=== PATIENT | male | born 1990 | race Caucasian/White ===

== ENCOUNTER 2020-07-17 16:50 | Inpatient (IN) | payer MEDICAID, OTHER ==
[~2020-07-17] VITALS: Ht 167.6 cm; Wt 75.0 kg
[~2020-07-17 16:50] MED LIST: ARIP1TAB PO; ARIP1TAB10 PO; DIPH25CA32 PO; PALI1TAB2 PO
[2020-07-17 18:33] LABS: HEMATOCRIT 40.8 % (42.0-52.0); HEMOGLOBIN 13.7 g/dl (13.5-17.5); MEAN CORPUSCULAR HEMOGLOBIN 31.5 pg (27.0-33.0); MEAN CORPUSCULAR HGB CONC 33.6 g/dl (32.0-36.5); MEAN CORPUSCULAR VOLUME 93.8 fl (80.0-96.0); PLATELET COUNT, AUTOMATED 246 10^3/uL (150-450); RED BLOOD COUNT 4.35 10^6/uL (4.30-6.10); WHITE BLOOD COUNT 8.2 10^3/uL (4.0-10.0)
[2020-07-17 18:53] LABS: AMPHETAMINES LEVEL URINE NEGATIVE (NEGATIVE); BARBITURATES URINE NEGATIVE (NEGATIVE); BENZODIAZEPINES URINE NEGATIVE (NEGATIVE); CANNABINOIDS URINE NEGATIVE (NEGATIVE); COCAINE METABOLITE URINE NEGATIVE (NEGATIVE); METHADONE URINE NEGATIVE (NEGATIVE); OPIATES URINE NEGATIVE (NEGATIVE); PHENCYCLIDINE URINE NEGATIVE (NEGATIVE)
[2020-07-17 19:28] LABS: ACETAMINOPHEN LEVEL < 2.0 UG/ML (10.0-30.0); ALBUMIN 3.9 GM/DL (3.2-5.2); ALT/SGPT 30 U/L (12-78); BILIRUBIN,DIRECT 0.1 MG/DL (0.0-0.2); BILIRUBIN,TOTAL 0.4 MG/DL (0.2-1.0); BLOOD UREA NITROGEN 18 MG/DL (7-18); CALCIUM LEVEL 9.3 MG/DL (8.5-10.1); CARBON DIOXIDE LEVEL 26 MEQ/L (21-32); CHLORIDE LEVEL 103 MEQ/L (98-107); CREATININE FOR GFR 0.88 MG/DL (0.70-1.30); ETHYL ALCOHOL (ETHANOL) < 0.003 % (0.000-0.010); GLOMERULAR FILTRATION RATE > 60.0 (>60); GLUCOSE, FASTING 94 MG/DL (70-100); POTASSIUM SERUM 4.3 MEQ/L (3.5-5.1); SALICYLATE LEVEL 4.4 MG/DL (5.0-30.0); SODIUM LEVEL 136 MEQ/L (136-145); TOTAL PROTEIN 7.4 GM/DL (6.4-8.2)
[2020-07-18] MEDS ORDERED: METAL LOCK LOOP XX ONE (05:56)
[2020-07-18 14:27] LABS: RSV AMPLIFICATION NEGATIVE (NEGATIVE)
[2020-07-18] MEDS ORDERED: IBUPROFEN 400MG TAB PO PRN (18:25)
[2020-07-18] MEDS ORDERED: OLANZapine ORAL DISINTEGRATING TAB 5MG PO PRN (18:25)
[2020-07-18] MEDS ORDERED: MAALOX 30 ML SUSP *UDC PO PRN (18:25)
[2020-07-18] MEDS ORDERED: MOM 30ML SUSPENSION UDC PO PRN (18:25)
[2020-07-18] MEDS ORDERED: traZODone 50 MG TAB PO PRN (18:25)
[2020-07-19 07:24] VITALS: BP 148/92
[2020-07-19] MEDS: NICOTINE 21MG/24HR 1 EA TRANSDERMAL TD SCH (09:00)
--- NOTE | 2020-07-19 10:20 | MHHPEPDOC ---
General Date Of Admission: Jul 18, 2020 Legal Status: 9.39 Chief Complaint "I was walking on the road in an unorthodox way and the police were called." History of Present Illness HISTORY OF THE PRESENT ILLNESS: Patient is a 30 -year-old Single, Unemployed , male, who was brought by by Police, as he was found walking in the middle of the road, making bizarre statements. On interview, patient is bennett ential and hyperverbal has a long story about his travels on foot and he postulates that a passerby felt that he was walking strangely on the road. Patient is quite manic in his speech with flights of ideas, loose associations and displaying poor insight and judgment. States that he is into natural substances and does not want medications. Patient has had one previous admission to this facility in August 2017 with a diagnosis of Schizoaffective, Bipolar. Patient is unkempt. wearing his hair very long, has fungal on his toenail, states that he was living with a friend for a few days but alludes to being homeless for a few months. PER ED REPORT: Pt was brought to the ED by police on a 9.41 after being found walking in the middle of the road. Pt was making bizarre statements as well. When asked why he was brought to the ED by police, pt stated "There were reports made by people driving by me because of the unorthodox way I was flowing while traveling by foot down the highway." Pt states that these people made false allegations against him, but he admits that he was walking down the middle [place] [address]. Pt states that the police "were corrupting the purity of my moment." He states that he is restoration & "I cannot be corrupted by rules because I am clever, witty, & kind." Pt states that he has walked close to 100 miles over the past few days. Pt is disheveled, unkempt, & malodorous. He states that he has not showered in at least a week. Pt's speech is rambling, rapid, pressured, & mumbled. His TP is disorganized & his concentration is poor. He will often start to answer a question & will then s top & ask what the question was. Pt denies both SI & HI. He denies any hx of suicide attempts or self-harm. Pt denies both AH & VH. He appears internally preoccupied at times, looking at the wall & mumbling. Pt denies both depression & anxiety. He reports "excellent" energy levels. He states that his sleep & appetite are good. When asked if he has a mental health dx he states "there was a false judgment against me a few years ago & they said I was bipolar." Pt has a hx of schizoaffective d/o with one admission to [facility]. He does not currently have OP tx. Pt reports occasional MJ use. He states that he uses alcohol occasionally & then states "less than five times per month." Pt's tox screen was negative. Pt states he has been homeless for four or five months. He states that over the course of that time he has stayed at hotels, the [facility], & with friends. Pt states that sometimes he does not have a place to stay so he just walks. Psychiatric Review of Systems Depression (2 or more weeks): denies Bertha (4 or more days of): grandiosity, still with energy, talkativity, pressured, flight of ideas, distractibility, engages in risky behavior Psychosis: delusions, disorganization, other (patient denies that he has a mental health history, although has been admitted in 2018) PTSD: other (unable to ascertain, patient cannot focus on questions, tangential and circumstantial) Anxiety: other (unable to ascertain, patient cannot focus on questions, tangential and circumstantial) Past Psychiatric History Previous Psychiatric Diagnosis: Schizoaffective, Bipolar Type Previous Psychiatric Admissions: One admissions 08/21/17-09/01/17 Suicide Attempts: Unknown, unable to ascertain, patient cannot focus on questions, tangential and circumstantial Psychiatric Follow-up: Patient has not followed up with any outside provider Psychiatric medications: Last known medications Paliperidone 9 mg, and Abilify 5 mg BID. Past Medical History Medical Problems Right leg fracture with ORIF Right ankle fx with ORIF NKDA Reports no other past medical history Hospitalizations: Yes Surgeries: Yes Family Medical/Psychiatric HX Medical Problems unable to ascertain, patient cannot focus on questions, tangential and circumstantial - states that he has left family history in the past Per his last H + P, he denied any family history of medical, psychiatric or addictions Addiction History nicotine, alcohol, other (cannabis) Social History Childhood: Born in [place], [place] was was raised in [place]. He left school in the 10th grade Abuse/Trauma: "States he is a victim of false accusations",per last H + P no report of Trauma Current Living Situation: Homeless Education: [employer] Employment: None Social Support: None Legal: unable to ascertain, patient cannot focus on questions, tangential and circumstantial Marital: Single Mental Status Examination General Appearance: unkempt, disheveled, appears stated age, hospital scubs/herman thing, healed scars, other (tattoo right forearm, fungal toes, long nails, long hair and mills) Build: thin Demeanor: mistrustful, very figety Eye Contact: average Activity: average Behavior: cooperative, restless Speech: rapid, normal volume Mood: elevated, hypomanic Affect: flat Thought Process: circumstantial, tangential, loose, flight of ideas, racing, derailment Thought Content (Delusions): grandiose, persecutory, bizarre, denies SI, HI, AVH, delusions Thought Content (Other): ideas of reference (restoration references) Thought Content (Aggressive): none reported Perception (Hallucinations): none reported Perception (Other): derealization Cognition (Impairment of): attention/concentration Cognition(Intelligence Est.): average Oriented: Awake, Alert, Oriented times three Insight: poor Judgment: Poor Psychosis: Abstract Thinking Diagnoses Schizoaffective, Bipolar Type Nicotine Use Disorder Alcohol Use Disorder Cannabis Use Disorder A-FIB/CHADSVASC A-FIB History Current/History of A-Fib/PAF?: No Current PO Anticoag Therapy: No Assessment patient is a 30 year old Single, Unemployed, Homeless, Male who was brought in by Police for walking in the roadway and making bizarre statements. Patient presents with racing manic thoughts. States that he has not been taking medications, preferring to be "natural" He has one previous admission to this facility in August 2018 with a diagnosis of Schizoaffective Disorder, Bipolar Type. He has been homeless for quite some time, reports no means of employment, no social supports and is currently admitted to [facility] on a 9.39 legal status. His speech is rapid, tangential, circumstantial with flights of ideas. He displays poor insight and judgment and meets criteria for involuntary admission. We will start patient on an antipsychotic medications and discharge when stable. There is a likelihood that he may be a treatment over objection if he refuses medications. Initial Treatment Plan 1. Patient was admitted on a [9.39] status. 2. Complete history was obtained. 3. With patients permission, family will be contacted and database will be expanded. 4. Patients medication regimen will be reviewed and changed accordingly. 5. Patient will be provided with protected environment. 6. Patient will be treated with individual, group, and milieu therapies. 7. Patient will receive supportive psych-education. 8. Discharge planning will commence immediately. 9. Outpatient follow-up treatment will be strongly recommended. 10. The initial treatment plan will focus initially on: * altered thoughts * compliance to medications ESTIMATED LENGTH OF STAY: 5-7 DAYS. TIME SPENT COUNSELING AND COORDINATING INITIAL CARE: 45 minutes. Tobacco Cessation Screen Tobacco Cessation Tx Ordered?: Yes Ordered/Pending Vital Signs Vital Signs Date Time Temp Pulse Resp B/P (MAP) Pulse Ox O2 Delivery O2 Flow Rate FiO2 07/19/20 07:24 98.3 99 22 148/92 (110) 99 Room Air Laboratory Data 24H Labs Laboratory Tests 2 07/18/20 13:22: Coronavirus (COVID-19)(PCR) NEGATIVE, Influenza Type A (RT-PCR) NEGATIVE, Influenza Type B (RT-PCR) NEGATIVE, Respiratory Syncytial Virus (PCR) NEGATIVE Medications No Active Prescriptions or Reported Meds Allergies Coded Allergies: No Known Allergies (Unverified , 08/21/17) ALEX AGUIRRE NP Jul 19, 2020 09:24
--- NOTE | 2020-07-19 13:12 | HPEPDOC ---
[facility] Medical History & Physical Date of Admission Jul 18, 2020 Date of Service: Jul 19, 2020 History and Physical Chief complaint: Presented to the emergency room with psychosis History of present illness: Patient is a 30-year-old male who presented to the emergency room with reported psychosis. Patient was admitted to the inpatient mental health unit under the care of psychiatry. Hospitalist service was consulted for medical screening evaluation. Currently patient has rapid speech and is speaking tangentially. He denies any headache, nausea, vomiting, chest pain, shortness breath, palpitations, abdominal pain. Patient diarrhea, or urinary discomfort. She denies any recent fevers, chills. Reports that his appetite is fairly normal and has not expressed any changes in his weight. Past Medical History: Patient denies any prior medical history Past Surgical History: Patient denies any prior surgical history Allergies: See below Medications: See below Family History: - No history of malignancies Social History: - Patient reports that he is a smoker. Reports social use of alcohol. 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 Review of Systems: 10 point review of systems complete, all negative otherwise stated in HPI Physical exam: - Vitals: BP [148/92], HR [99], RR [22], Sat [99%RA], Temp [98.3F] - General: Sitting up in bed, pressured speech Speaking in full sentences, AAOx3 - HEENT: NC, AT, PERRLA - CVS: RRR, +S1S2 - Lungs: Fair air entry bilaterally, No appreciable wheezing / rales / rhonchi - Abdomen: Soft, Non-distended, Non-tender - Extremities: No lower extremity edema, No calf tenderness - Neuro: No focal motor or sensory deficit - Skin: Bilateral feet with multiple calluses Labs: See below Imaging: See below EKG: See below Assessment and Plan: Psychosis - Patient has been admitted to the inpatient mental health unit under the care of psychiatry - Currently being managed by psychiatry No significant past medical history DVT prophylaxis - Will c/w early ambulation Female skein yard drier was present for the duration of his history and physical examination Thank you for this consultation; hospitalist service will now sign off, please reconsult as needed Vital Signs Vital Signs Date Time Temp Pulse Resp B/P (MAP) Pulse Ox O2 Delivery O2 Flow Rate FiO2 07/19/20 07:24 98.3 99 22 148/92 (110) 99 Room Air Laboratory Data Labs 24H Laboratory Tests 2 07/18/20 13:22: Coronavirus (COVID-19)(PCR) NEGATIVE, Influenza Type A (RT-PCR) NEGATIVE, Influenza Type B (RT-PCR) NEGATIVE, Respiratory Syncytial Virus (PCR) NEGATIVE Home Medications No Active Prescriptions or Reported Meds Allergies Coded Allergies: No Known Allergies (Unverified , 08/21/17) FLORI BENITES MD Jul 19, 2020 13:12
[2020-07-19] MEDS ORDERED: haloperidoL 5 MG TAB PO PRN (15:30)
[2020-07-19] MEDS ORDERED: BENZTROPINE 1 MG TAB PO PRN (15:30)
[2020-07-19] MEDS: haloperidoL 5 MG TAB PO SCH ×2 (15:51→21:00)
[2020-07-20] MEDS: haloperidoL 5 MG TAB PO SCH ×3 (09:00→20:47)
[2020-07-20] MEDS: NICOTINE 21MG/24HR 1 EA TRANSDERMAL TD SCH (09:00)
--- NOTE | 2020-07-20 13:44 | MHIPNPDOC ---
[facility] Progress Note Progress Note DATE OF SERVICE: 07/20/20 HISTORY: Patient is a 30 -year-old Single, Unemployed , male, who was brought by by Police, as he was found walking in the middle of the road, making bizarre statements. On interview, patient is tangential and hyperverbal has a long story about his travels on foot and he postulates that a passerby felt that he was walking strangely on the road. Patient is quite manic in his speech with flights of ideas, loose associations and displaying poor insight and judgment. States that he is into natural substances and does not want medications. Patient has had one previous admission to this facility in August 2017 with a diagnosis of Schizoaffective, Bipolar. Patient is unkempt. wearing his hair very long, has fungal on his toenail, states that he was living with a friend fo r a few days but alludes to being homeless for a few months. PER ED REPORT: Pt was brought to the ED by police on a 9.41 after being found walking in the middle of the road. Pt was making bizarre statements as well. When asked why he was brought to the ED by police, pt stated "There were reports made by people driving by me because of the unorthodox way I was flowing while t raveling by foot down the highway." Pt states that these people made false allegations against him, but he admits that he was walking down the middle of the road on [address]. Pt states that the police "were corrupting the purity of my moment." He states that he is sabianism & "I cannot be corrupted by rules because I am clever, witty, & kind." Pt states that he has walked close to 100 miles over the past few days. Pt is disheveled, unkempt, & malodorous. He states that he has not showered in at least a week. Pt's speech is rambling, rapid, pressured, & mumbled. His TP is disorganized & his concentration is poor. He will often start to answer a question & will then stop & ask what the question was. Pt denies both SI & HI. He denies any hx of suicide attempts or self-harm. Pt denies both AH & VH. He appears internally preoccupied at times, looking at the wall & mumbling. Pt denies both depression & anxiety. He reports "excellent" energy levels. He states that his sleep & appetite are good. When asked if he has a mental health dx he states "there was a false judgment against me a few years ago & they said I was bipolar." Pt has a hx of schizoaffective d/o with one admission to [facility]. He does not currently have OP tx. Pt reports occasional MJ use. He states that he uses alcohol occasionally & then states "less than five times per month." Pt's tox screen was negative. Pt states he has been homeless for four or five months. He states that over the course of that time he has stayed [facility], & with friends. Pt states that sometimes he does not have a place to stay so he just walks. VITAL SIGNS: See below. CURRENT MEDICATIONS: See below. MENTAL STATUS EXAMINATION: Patient is a 30 -year-old Single, Unemployed , male, who was brought by by Police, as he was found walking in the middle of the road, making bizarre statements. General Appearance: unkempt, disheveled, appears stated age, hospital scubs/clothing, healed scars, other (tattoo right forearm, fungal toes, long nails, long hair and mills) Build: thin Demeanor: mistrustful, very figety Eye Contact: average Activity: average Behavior: cooperative, restless Speech: rapid, normal volume Mood: elevated, hypomanic Affect: flat Thought Process: circumstantial, tangential, loose, flight of ideas, racing, derailment Thought Content (Delusions): grandiose, persecutory, bizarre, denies SI, HI, AVH, delusions Thought Content (Other): ideas of reference (sabianism references) Thought Content (Aggressive): none reported Perception (Hallucinations): none reported Perception (Other): derealization Cognition (Impairment of): attention/concentration Cognition(Intelligence Est.): average Oriented: Awake, Alert, Oriented times three Insight: poor Judgment: Poor Psychosis: Abstract Thinking DIAGNOSES: Schizoaffective, Bipolar Type Nicotine Use Disorder Alcohol Use Disorder Cannabis Use Disorder ASSESSMENT: Patient is quite manic, racing thoughts, hyperverbal, tangential, circumstantial with flight of ideas and loose associations. He denies any depressive symptoms as well as any psychotic symptoms but patient is observed to have poor insight and judgment in his mental illness. He is dismissive when discussing medications stating that he wants "natural medications" Has been heard in his room, yelling loudly. His thought process is very disorganized and scattered. MANAGEMENT PLAN: Continue all medications, encourage patient to accept medic ations. Discharge pending TIME SPENT: 25 minutes. Vital Signs Vital Signs Date Time Temp Pulse Resp B/P (MAP) Pulse Ox O2 Delivery O2 Flow Rate FiO2 07/19/20 07:24 98.3 99 22 148/92 (110) 99 Room Air Current Medications Current Medications Medications (Trade) Dose Ordered Sig/Tong Route PRN Reason Start Time Stop Time Status Last Admin Dose Admin Al Hydrox/Mg Hydrox/Simethicone (Mylanta) 30 ml Q4HP PRN PO HEARTBURN/INDIGESTION 07/18/20 18:25 Benztropine Mesylate (Cogentin) 1 mg BID PRN PO EPS 07/19/20 15:30 Haloperidol (Haldol) 5 mg Q6HP PRN PO AGITATION 07/19/20 15:30 Haloperidol (Haldol) 5 mg TID PO 07/19/20 16:00 Home Med (Med Rec Complete!) ASDIRECTED XX 07/17/20 21:05 07/17/20 21:08 DC Ibuprofen (Advil) 400 mg Q6HP PRN PO PAIN 07/18/20 18:25 Magnesium Hydroxide (Milk Of Magnesia) 30 ml DAILYPRN PRN PO CONSTIPATION 07/18/20 18:25 Nicotine (Nicoderm Cq 21mg) 1 patch DAILY TD 07/19/20 09:00 Olanzapine (ZyPREXA ZYDIS) 5 mg BID PRN PO ANXIETY/AGITATION 07/18/20 18:25 07/19/20 15:32 DC Trazodone HCl (Desyrel) 50 mg QHSP PRN PO INSOMNIA 07/18/20 18:25 Allergies Coded Allergies: No Known Allergies (Unverified , 08/21/17) ALEX AGUIRRE NP Jul 20, 2020 13:44
[2020-07-21] MEDS: NICOTINE 21MG/24HR 1 EA TRANSDERMAL TD SCH (09:00)
[2020-07-21] MEDS: haloperidoL 5 MG TAB PO SCH ×3 (09:00→20:10)
--- NOTE | 2020-07-21 17:14 | MHIPNPDOC ---
[facility] Progress Note Progress Note DATE OF SERVICE: 07/21/20 Patient didn't want to speak with me today. Will re assess tomorrow Vital Signs Vital Signs Date Time Temp Pulse Resp B/P (MAP) Pulse Ox O2 Delivery O2 Flow Rate FiO2 07/19/20 07:24 98.3 99 22 148/92 (110) 99 Room Air Current Medications Current Medications Medications (Trade) Dose Ordered Sig/Tong Route PRN Reason Start Time Stop Time Status Last Admin Dose Admin Al Hydrox/Mg Hydrox/Simethicone (Mylanta) 30 ml Q4HP PRN PO HEARTBURN/INDIGESTION 07/18/20 18:25 Benztropine Mesylate (Cogentin) 1 mg BID PRN PO EPS 07/19/20 15:30 Haloperidol (Haldol) 5 mg Q6HP PRN PO AGITATION 07/19/20 15:30 Haloperidol (Haldol) 5 mg TID PO 07/19/20 16:00 Home Med (Med Rec Complete!) ASDIRECTED XX 07/17/20 21:05 07/17/20 21:08 DC Ibuprofen (Advil) 400 mg Q6HP PRN PO PAIN 07/18/20 18:25 Magnesium Hydroxide (Milk Of Magnesia) 30 ml DAILYPRN PRN PO CONSTIPATION 07/18/20 18:25 Nicotine (Nicoderm Cq 21mg) 1 patch DAILY TD 07/19/20 09:00 Olanzapine (ZyPREXA ZYDIS) 5 mg BID PRN PO ANXIETY/AGITATION 07/18/20 18:25 07/19/20 15:32 DC Trazodone HCl (Desyrel) 50 mg QHSP PRN PO INSOMNIA 07/18/20 18:25 Allergies Coded Allergies: No Known Allergies (Unverified , 08/21/17) SHYAM TODD MD Jul 21, 2020 17:14
[2020-07-22] MEDS: NICOTINE 21MG/24HR 1 EA TRANSDERMAL TD SCH (08:54)
[2020-07-22] MEDS: haloperidoL 5 MG TAB PO SCH ×3 (08:54→21:00)
--- NOTE | 2020-07-22 15:11 | MHIPNPDOC ---
[facility] Progress Note Progress Note DATE OF SERVICE: 07/22/20 The patient refused to speak with me again Vital Signs Vital Signs Date Time Temp Pulse Resp B/P (MAP) Pulse Ox O2 Delivery O2 Flow Rate FiO2 07/22/20 09:30 Room Air 07/19/20 07:24 98.3 99 22 148/92 (110) 99 Current Medications Current Medications Medications (Trade) Dose Ordered Sig/Tong Route PRN Reason Start Time Stop Time Status Last Admin Dose Admin Al Hydrox/Mg Hydrox/Simethicone (Mylanta) 30 ml Q4HP PRN PO HEARTBURN/INDIGESTION 07/18/20 18:25 Benztropine Mesylate (Cogentin) 1 mg BID PRN PO EPS 07/19/20 15:30 Haloperidol (Haldol) 5 mg Q6HP PRN PO AGITATION 07/19/20 15:30 Haloperidol (Haldol) 5 mg TID PO 07/19/20 16:00 Home Med (Med Rec Complete!) ASDIRECTED XX 07/17/20 21:05 07/17/20 21:08 DC Ibuprofen (Advil) 400 mg Q6HP PRN PO PAIN 07/18/20 18:25 Magnesium Hydroxide (Milk Of Magnesia) 30 ml DAILYPRN PRN PO CONSTIPATION 07/18/20 18:25 Nicotine (Nicoderm Cq 21mg) 1 patch DAILY TD 07/19/20 09:00 Olanzapine (ZyPREXA ZYDIS) 5 mg BID PRN PO ANXIETY/AGITATION 07/18/20 18:25 07/19/20 15:32 DC Trazodone HCl (Desyrel) 50 mg QHSP PRN PO INSOMNIA 07/18/20 18:25 Allergies Coded Allergies: No Known Allergies (Unverified , 08/21/17) SHYAM TODD MD Jul 22, 2020 15:11
[2020-07-23] MEDS: haloperidoL 5 MG TAB PO SCH ×3 (08:51→20:35)
[2020-07-23] MEDS: NICOTINE 21MG/24HR 1 EA TRANSDERMAL TD SCH (08:51)
--- NOTE | 2020-07-23 15:07 | MHIPNPDOC ---
[facility] Progress Note Progress Note DATE OF SERVICE: 07/23/20 HISTORY: Patient is a 30 -year-old Single, Unemployed , male, who was brought by by Police, as he was found walking in the middle of the road, making bizarre statements. On interview, patient is tangential and hyperverbal has a long story about his travels on foot and he postulates that a passerby felt that he was walking strangely on the road. Patient is quite manic in his speech with flights of ideas, loose associations and displaying poor insight and judgment. States that he is into natural substances and does not want medications. Patient has had one previous admission to this facility in August 2017 with a diagnosis of Schizoaffective, Bipolar. Patient is unkempt. wearing his hair very long, has fungal on his toenail, states that he was living with a friend fo r a few days but alludes to being homeless for a few months. PER ED REPORT: Pt was brought to the ED by police on a 9.41 after being found walking in the middle of the road. Pt was making bizarre statements as well. When asked why he was brought to the ED by police, pt stated "There were reports made by people driving by me because of the unorthodox way I was flowing while t raveling by foot down the highway." Pt states that these people made false allegations against him, but he admits that he was walking down the middle [place] [address]. Pt states that the police "were corrupting the purity of my moment." He states that he is anglican & "I cannot be corrupted by rules because I am clever, witty, & kind." Pt states that he has walked close to 100 miles over the past few days. Pt is disheveled, unkempt, & malodorous. He states that he has not showered in at least a week. Pt's speech is rambling, rapid, pressured, & mumbled. His TP is disorganized & his concentration is poor. He will often start to answer a question & will then stop & ask what the question was. Pt denies both SI & HI. He denies any hx of suicide attempts or self-harm. Pt denies both AH & VH. He appears internally preoccupied at times, looking at the wall & mumbling. Pt denies both depression & anxiety. He reports "excellent" energy levels. He states that his sleep & appetite are good. When asked if he has a mental health dx he states "there was a false judgment against me a few years ago & they said I was bipolar." Pt has a hx of schizoaffective d/o with one admission to [facility]. He does not currently have OP tx. Pt reports occasional MJ use. He states that he uses alcohol occasionally & then states "less than five times per month." Pt's tox screen was negative. Pt states he has been homeless for four or five months. He states that over the course of that time he has stayed at hotels, [place], & with friends. Pt states that sometimes he does not have a place to stay so he just walks. VITAL SIGNS: See below. CURRENT MEDICATIONS: See below. MENTAL STATUS EXAMINATION: Patient is a 30 -year-old Single, Unemployed , male, who was brought by by Police, as he was found walking in the middle of the road, making bizarre statements. General Appearance: unkempt, disheveled, appears stated age, hospital scrubs/clothing, healed scars, other (tattoo right forearm, fungal toes, long nails, long hair and mills) Build: thin Demeanor: mistrustful, very fidgety Eye Contact: average Activity: average Behavior: restless Speech: rapid, normal volume Mood: elevated, hypomanic Affect: flat Thought Process: circumstantial, tangential, loose, flight of ideas, racing, derailment Thought Content (Delusions): grandiose, persecutory, bizarre, denies SI, HI, AVH, delusions Thought Content (Other): ideas of reference (anglican references) Thought Content (Aggressive): none reported Perception (Hallucinations): none reported Perception (Other): derealization Cognition (Impairment of): attention/concentration Cognition(Intelligence Est.): average Oriented: Awake, Alert, Oriented times three Insight: poor Judgment: Poor Psychosis: Abstract Thinking DIAGNOSES: Schizoaffective, Bipolar Type Nicotine Use Disorder Alcohol Use Disorder Cannabis Use Disorder ASSESSMENT: Patient is hypomanic with racing thoughts, hyperverbal, tangential, circumstantial with flight of ideas and loose associations. He is dismissive with regards to medications and leaves the room many times to go off to his room. He denies depressive symptoms and psychotic or manic symptoms but patie nt is observed to have poor insight and judgment into his mental illness. He continues to be be disorganized and scattered and hypomanic. When I discussed with him the need for medications, patient became very irritable and hostile and refused to discuss medications. MANAGEMENT PLAN: Continue all medications, encourage patient to accept medications. Order to 2 PC, Transfer to [facility] as patient will not take medications that will stabilize him. May have to consider treatment over objection if he continues to refuse medications. TIME SPENT: 25 minutes. Vital Signs Vital Signs Date Time Temp Pulse Resp B/P (MAP) Pulse Ox O2 Delivery O2 Flow Rate FiO2 07/22/20 09:30 Room Air 07/19/20 07:24 98.3 99 22 148/92 (110) 99 Current Medications Current Medications Medications (Trade) Dose Ordered Sig/Tong Route PRN Reason Start Time Stop Time Status Last Admin Dose Admin Al Hydrox/Mg Hydrox/Simethicone (Mylanta) 30 ml Q4HP PRN PO HEARTBURN/INDIGESTION 07/18/20 18:25 Benztropine Mesylate (Cogentin) 1 mg BID PRN PO EPS 07/19/20 15:30 Haloperidol (Haldol) 5 mg Q6HP PRN PO AGITATION 07/19/20 15:30 Haloperidol (Haldol) 5 mg TID PO 07/19/20 16:00 Home Med (Med Rec Complete!) ASDIRECTED XX 07/17/20 21:05 07/17/20 21:08 DC Ibuprofen (Advil) 400 mg Q6HP PRN PO PAIN 07/18/20 18:25 Magnesium Hydroxide (Milk Of Magnesia) 30 ml DAILYPRN PRN PO CONSTIPATION 07/18/20 18:25 Nicotine (Nicoderm Cq 21mg) 1 patch DAILY TD 07/19/20 09:00 Olanzapine (ZyPREXA ZYDIS) 5 mg BID PRN PO ANXIETY/AGITATION 07/18/20 18:25 07/19/20 15:32 DC Trazodone HCl (Desyrel) 50 mg QHSP PRN PO INSOMNIA 07/18/20 18:25 Allergies Coded Allergies: No Known Allergies (Unverified , 08/21/17) ALEX AGUIRRE NP Jul 23, 2020 15:07
[2020-07-24] MEDS: haloperidoL 5 MG TAB PO SCH ×3 (08:22→21:00)
[2020-07-24] MEDS: NICOTINE 21MG/24HR 1 EA TRANSDERMAL TD SCH (08:22)
--- NOTE | 2020-07-24 16:26 | MHIPNPDOC ---
[facility] Progress Note Progress Note DATE OF SERVICE: 07/24/20 HISTORY: Patient is a 30 -year-old Single, Unemployed , male, who was brought by by Police, as he was found walking in the middle of the road, making bizarre statements. On interview, patient is tangential and hyperverbal has a long story about his travels on foot and he postulates that a passerby felt that he was walking strangely on the road. Patient is quite manic in his speech with flights of ideas, loose associations and displaying poor insight and judgment. States that he is into natural substances and does not want medications. Patient has had one previous admission to this facility in August 2017 with a diagnosis of Schizoaffective, Bipolar. Patient is unkempt. wearing his hair very long, has fungal on his toenail, states that he was living with a friend fo r a few days but alludes to being homeless for a few months. PER ED REPORT: Pt was brought to the ED by police on a 9.41 after being found walking in the middle of the road. Pt was making bizarre statements as well. When asked why he was brought to the ED by police, pt stated "There were reports made by people driving by me because of the unorthodox way I was flowing while t raveling by foot down the highway." Pt states that these people made false allegations against him, but he admits that he was walking down the middle of the road on [address]. Pt states that the police "were corrupting the purity of my moment." He states that he is cheondoism & "I cannot be corrupted by rules because I am clever, witty, & kind." Pt states that he has walked close to 100 miles over the past few days. Pt is disheveled, unkempt, & malodorous. He states that he has not showered in at least a week. Pt's speech is rambling, rapid, pressured, & mumbled. His TP is disorganized & his concentration is poor. He will often start to answer a question & will then stop & ask what the question was. Pt denies both SI & HI. He denies any hx of suicide attempts or self-harm. Pt denies both AH & VH. He appears internally preoccupied at times, looking at the wall & mumbling. Pt denies both depression & anxiety. He reports "excellent" energy levels. He states that his sleep & appetite are good. When asked if he has a mental health dx he states "there was a false judgment against me a few years ago & they said I was bipolar." Pt has a hx of schizoaffective d/o with one admission to [facility]. He does not currently have OP tx. Pt reports occasional MJ use. He states that he uses alcohol occasionally & then states "less than five times per month." Pt's tox screen was negative. Pt states he has been homeless for four or five months. He states that over the course of that time he has stayed at hotels, [place], & with friends. Pt states that sometimes he does not have a place to stay so he just walks. VITAL SIGNS: See below. CURRENT MEDICATIONS: See below. MENTAL STATUS EXAMINATION: Patient is a 30 -year-old Single, Unemployed , male, who was brought by by Police, as he was found walking in the middle of the road, making bizarre statements. General Appearance: unkempt, disheveled, appears stated age, hospital scrubs/clothing, healed scars, other (tattoo right forearm, fungal toes, long nails, long hair and mills) Build: thin Demeanor: mistrustful, very fidgety Eye Contact: average Activity: average Behavior: restless Speech: rapid, normal volume Mood: hypomanic Affect: flat Thought Process: circumstantial, tangential, loose, flight of ideas, racing, derailment Thought Content (Delusions): grandiose, persecutory, bizarre, denies SI, HI, AVH, delusions Thought Content (Other): ideas of reference (cheondoism references) Thought Content (Aggressive): none reported Perception (Hallucinations): none reported Perception (Other): derealization Cognition (Impairment of): attention/concentration Cognition(Intelligence Est.): average Oriented: Awake, Alert, Oriented times three Insight: poor Judgment: Poor Psychosis: Abstract Thinking DIAGNOSES: Schizoaffective, Bipolar Type Nicotine Use Disorder Alcohol Use Disorder Cannabis Use Disorder ASSESSMENT: Patient is hypomanic, during the interview, he left the room numerous times. He had intense cheondoism ideations, asking "Are you spiritual? Do you have cheondoism beliefs? Do you have Integrity?" Patient has tangential, circumstantial thought processes, speech is fast and tangential. He is disorganized with flight of ideas. Attempted to have face to face conversation about treatment plan moving forward, patient left the room numerous times although I believe that he heard me say that the plan is a transfer to [facility]. Patient has a long history of poor adherence to treatment from not taking medications to having no ability to access housing by [facility]. A discharge for someone who is acutely delusional and psychotic would be poor treatment and an unsafe discharge plan as he is showing no improvement without medications. MANAGEMENT PLAN: Continue all medications, encourage patient to accept medications. Order to 2 PC, Transfer to [facility] as patient will not take medications that will stabilize him. May have to consider treatment over obj ection if he continues to refuse medications. TIME SPENT: 25 minutes. Vital Signs Vital Signs Date Time Temp Pulse Resp B/P (MAP) Pulse Ox O2 Delivery O2 Flow Rate FiO2 07/22/20 09:30 Room Air 07/19/20 07:24 98.3 99 22 148/92 (110) 99 Current Medications Current Medications Medications (Trade) Dose Ordered Sig/Tong Route PRN Reason Start Time Stop Time Status Last Admin Dose Admin Al Hydrox/Mg Hydrox/Simethicone (Mylanta) 30 ml Q4HP PRN PO HEARTBURN/INDIGESTION 07/18/20 18:25 Benztropine Mesylate (Cogentin) 1 mg BID PRN PO EPS 07/19/20 15:30 Haloperidol (Haldol) 5 mg Q6HP PRN PO AGITATION 07/19/20 15:30 Haloperidol (Haldol) 5 mg TID PO 07/19/20 16:00 Home Med (Med Rec Complete!) ASDIRECTED XX 07/17/20 21:05 07/17/20 21:08 DC Ibuprofen (Advil) 400 mg Q6HP PRN PO PAIN 07/18/20 18:25 Magnesium Hydroxide (Milk Of Magnesia) 30 ml DAILYPRN PRN PO CONSTIPATION 07/18/20 18:25 Nicotine (Nicoderm Cq 21mg) 1 patch DAILY TD 07/19/20 09:00 Olanzapine (ZyPREXA ZYDIS) 5 mg BID PRN PO ANXIETY/AGITATION 07/18/20 18:25 6/3/21 15:32 DC Trazodone HCl (Desyrel) 50 mg QHSP PRN PO INSOMNIA 07/18/20 18:25 Allergies Coded Allergies: No Known Allergies (Unverified , 08/21/17) ALEX AGUIRRE NP Jul 24, 2020 16:26
[2020-07-25] MEDS: haloperidoL 5 MG TAB PO SCH ×3 (08:16→21:00)
[2020-07-25] MEDS: NICOTINE 21MG/24HR 1 EA TRANSDERMAL TD SCH (08:16)
--- NOTE | 2020-07-25 13:11 | MHIPNPDOC ---
[facility] Progress Note Progress Note DATE OF SERVICE: 07/25/20 HISTORY: Patient is a 30 -year-old Single, Unemployed , male, who was brought by by Police, as he was found walking in the middle of the road, making bizarre statements. On interview, patient is tangential and hyperverbal has a long story about his travels on foot and he postulates that a passerby felt that he was walking strangely on the road. Patient is quite manic in his speech with flights of ideas, loose associations and displaying poor insight and judgment. States that he is into natural substances and does not want medications. Patient has had one previous admission to this facility in August 2017 with a diagnosis of Schizoaffective, Bipolar. Patient is unkempt. wearing his hair very long, has fungal on his toenail, states that he was living with a friend for a few days but alludes to being homeless for a few months. PER ED REPORT: Pt was brought to the ED by police on a 9.41 after being found walking in the middle of the road. Pt was making bizarre statements as well. When asked why he was brought to the ED by police, pt stated "There were reports made by people driving by me because of the unorthodox way I was flowing while traveling by foot down the highway." Pt states that these people made false allegations against him, but he admits that he was walking down the middle of the road on [address]. Pt states that the police "were corrupting the purity of my moment." He states that he is alevism & "I cannot be corrupted by rules because I am clever, witty, & kind." Pt states that he has walked close to 100 miles over the past few days. Pt is disheveled, unkempt, & malodorous. He states that he has not showered in at least a week. Pt's speech is rambling, rapid, pressured, & mumbled. His TP is disorganized & his concentration is poor. He will often start to answer a question & will then stop & ask what the question was. Pt denies both SI & HI. He denies any hx of suicide attempts or self-harm. Pt denies both AH & VH. He appears internally preoccupied at times, looking at the wall & mumbling. Pt denies both depression & anxiety. He reports "excellent" energy levels. He states that his sleep & appetite are good. When asked if he has a mental health dx he states "there was a false judgment against me a few years ago & they said I was bipolar." Pt has a hx of schizoaffective d/o with one admission to [facility]. He does not currently have OP tx. Pt reports occasional MJ use. He states that he uses alcohol occasionally & then states "less than five times per month." Pt's tox screen was negative. Pt states he has been homeless for four or five months. He states that over the course of that time he has stayed at hotels, [place], & with friends. Pt states that sometimes he does not have a place to stay so he just walks. VITAL SIGNS: See below. CURRENT MEDICATIONS: See below. MENTAL STATUS EXAMINATION: Patient is a 30 -year-old Single, Unemployed , male, who was brought by by Police, as he was found walking in the middle of the road, making bizarre statements. General Appearance: unkempt, disheveled, appears stated age, hospital scrubs/clothing, healed scars, other (tattoo right forearm, fungal toes, long nails, long hair and mills) Build: thin Demeanor: mistrustful, very fidgety Eye Contact: average Activity: average Behavior: cooperative Speech: rapid, normal volume Mood: hypomanic Affect: flat Thought Process: circumstantial, tangential, loose, flight of ideas, racing, derailment Thought Content (Delusions): grandiose, persecutory, bizarre, denies SI, HI, AVH, delusions Thought Content (Other): ideas of reference (alevism references) Thought Content (Aggressive): none reported Perception (Hallucinations): none reported Perception (Other): derealization Cognition (Impairment of): attention/concentration Cognition(Intelligence Est.): average Oriented: Awake, Alert, Oriented times three Insight: poor Judgment: Poor Psychosis: Abstract Thinking DIAGNOSES: Schizoaffective, Bipolar Type Nicotine Use Disorder Alcohol Use Disorder Cannabis Use Disorder ASSESSMENT:Patient refused to meet with provider, stated that he was walking and exercising and wanted to meet much later. Encouraged patient to be seen as he was the last patient that this provider had to see and he stated he could not speak until after his walk and after lunch. He remains quite hypomanic today. Was observed to be in the bathroom in the dark for at least 15 minutes. He remains very delusional, very religiously preoccupied, flight of ideas, numerous disruptions when attempting to speak with the patient (walks away and then returns) Per staff he had bizarre requests yesterday - requested multiple masks, requested multiple applications and copies of patient's rights/policies. When given the application for court, he requested another stating that it was "defiled" MANAGEMENT PLAN: Continue all medications, encourage patient to accept medications. Order to 2 PC, Transfer to [facility] as patient will not take medications that will stabilize him. Will now start Treatment over objection. TIME SPENT: 25 minutes Vital Signs Vital Signs Date Time Temp Pulse Resp B/P (MAP) Pulse Ox O2 Delivery O2 Flow Rate FiO2 07/25/20 08:15 Room Air 07/19/20 07:24 98.3 99 22 148/92 (110) 99 Current Medications Current Medications Medications (Trade) Dose Ordered Sig/Tong Route PRN Reason Start Time Stop Time Status Last Admin Dose Admin Al Hydrox/Mg Hydrox/Simethicone (Mylanta) 30 ml Q4HP PRN PO HEARTBURN/INDIGESTION 07/18/20 18:25 Benztropine Mesylate (Cogentin) 1 mg BID PRN PO EPS 07/19/20 15:30 Haloperidol (Haldol) 5 mg Q6HP PRN PO AGITATION 07/19/20 15:30 Haloperidol (Haldol) 5 mg TID PO 07/19/20 16:00 Home Med (Med Rec Complete!) ASDIRECTED XX 07/17/20 21:05 07/17/20 21:08 DC Ibuprofen (Advil) 400 mg Q6HP PRN PO PAIN 07/18/20 18:25 Magnesium Hydroxide (Milk Of Magnesia) 30 ml DAILYPRN PRN PO CONSTIPATION 07/18/20 18:25 Nicotine (Nicoderm Cq 21mg) 1 patch DAILY TD 07/19/20 09:00 Olanzapine (ZyPREXA ZYDIS) 5 mg BID PRN PO ANXIETY/AGITATION 07/18/20 18:25 07/19/20 15:32 DC Trazodone HCl (Desyrel) 50 mg QHSP PRN PO INSOMNIA 07/18/20 18:25 Allergies Coded Allergies: No Known Allergies (Unverified , 08/21/17) ALEX AGUIRRE NP Jul 25, 2020 13:00
[2020-07-26] MEDS: haloperidoL 5 MG TAB PO SCH ×3 (09:00→20:14)
[2020-07-26] MEDS: NICOTINE 21MG/24HR 1 EA TRANSDERMAL TD SCH (09:00)
--- NOTE | 2020-07-26 13:02 | MHIPNPDOC ---
[facility] Progress Note Progress Note DATE OF SERVICE: 07/26/20 HISTORY: Patient is a 30 -year-old Single, Unemployed , male, who was brought by by Police, as he was found walking in the middle of the road, making bizarre statements. On interview, patient is tangential and hyperverbal has a long story about his travels on foot and he postulates that a passerby felt that he was walking strangely on the road. Patient is quite manic in his speech with flights of ideas, loose associations and displaying poor insight and judgment. States that he is into natural substances and does not want medications. Patient has had one previous admission to this facility in August 2017 with a diagnosis of Schizoaffective, Bipolar. Patient is unkempt. wearing his hair very long, has fungal on his toenail, states that he was living with a friend fo r a few days but alludes to being homeless for a few months. PER ED REPORT: Pt was brought to the ED by police on a 9.41 after being found walking in the middle of the road. Pt was making bizarre statements as well. When asked why he was brought to the ED by police, pt stated "There were reports made by people driving by me because of the unorthodox way I was flowing while t raveling by foot down the highway." Pt states that these people made false allegations against him, but he admits that he was walking down the middle [place] [address]. Pt states that the police "were corrupting the purity of my moment." He states that he is hinduism & "I cannot be corrupted by rules because I am clever, witty, & kind." Pt states that he has walked close to 100 miles over the past few days. Pt is disheveled, unkempt, & malodorous. He states that he has not showered in at least a week. Pt's speech is rambling, rapid, pressured, & mumbled. His TP is disorganized & his concentration is poor. He will often start to answer a question & will then stop & ask what the question was. Pt denies both SI & HI. He denies any hx of suicide attempts or self-harm. Pt denies both AH & VH. He appears internally preoccupied at times, looking at the wall & mumbling. Pt denies both depression & anxiety. He reports "excellent" energy levels. He states that his sleep & appetite are good. When asked if he has a mental health dx he states "there was a false judgment against me a few years ago & they said I was bipolar." Pt has a hx of schizoaffective d/o with one admission to [facility]. He does not currently have OP tx. Pt reports occasional MJ use. He states that he uses alcohol occasionally & then states "less than five times per month." Pt's tox screen was negative. Pt states he has been homeless for four or five months. He states that over the course of that time he has stayed at hotels, [place] rescue mission, & with friends. Pt states that sometimes he does not have a place to stay so he just walks. VITAL SIGNS: See below. CURRENT MEDICATIONS: See below. MENTAL STATUS EXAMINATION: Patient is a 30 -year-old Single, Unemployed , male, who was brought by by Police, as he was found walking in the middle of the road, making bizarre statements. General Appearance: unkempt, disheveled, appears stated age, hospital scrubs/clothing, healed scars, other (tattoo right forearm, fungal toes, long nails, long hair and mills) Build: thin Demeanor: mistrustful, very fidgety Eye Contact: average Activity: average Behavior: cooperative but not taking medications Speech: rapid, pressured but normal volume Mood: hypomanic Affect: flat Thought Process: circumstantial, tangential, loose, flight of ideas, racing, derailment Thought Content (Delusions): grandiose, persecutory, bizarre, denies SI, HI, AVH, delusions Thought Content (Other): ideas of reference (hinduism references) Thought Content (Aggressive): none reported Perception (Hallucinations): none reported Perception (Other): derealization, derailment Cognition (Impairment of): attention/concentration Cognition(Intelligence Est.): average Oriented: Awake, Alert, Oriented times three Insight: poor Judgment: Poor Psychosis: religiously preoccupied DIAGNOSES: Schizoaffective, Bipolar Type Nicotine Use Disorder Alcohol Use Disorder Cannabis Use Disorder ASSESSMENT: Patient was found walking in the hallway, he had grandiose and articulate speech about the artwork on the unit stating that "the expressionalism in the artwork had moved him." During the interview he left the room and returned multiple times during the conversation, states that he is admitted to the hospital because of "false witnesses" Patient is religiously preoccupied to the point that he has been growing his hair and mills out as if to look like Mitchel Nigel. He states that all he needs is my approval for his discharge so that he can go to [facility] for housing. He abruptly ended the interview. According to his case picker, patient is not able to get services from [facility]. Attempted to meet with the patient a second time as he is very agitated, walking in the hallway very swiftly. He is upset about the 2 [facility] and I asked if he would like to speak. We proceed to an interview, and he stated he could not stand near the blood pressure machine, he states that he cannot stand near it. Patient proceeds to go to his room and read the text of the status and rights of the 2 [facility]. He stated he disagreed with it, that he was not suppose to be arrested and that it was a mistake that he was brought to the hospital. Patient is irrational, does not allow anyone to speak, speaks over you and then leaves courteously but refuses to listen any reasons to why he has lengthened his admission. Patient refuses medications, is manic, delusional and has a long history of stealing, having no housing, and being non-compliant with medications to stabilize his manic and psychotic behaviors MANAGEMENT PLAN: Continue all medications, encourage patient to accept medications. Order to [facility], [place] [facility] will not take medications that will stabilize him. Will now start Treatment over objection. TIME SPENT: 25 minutes Vital Signs Vital Signs Date Time Temp Pulse Resp B/P (MAP) Pulse Ox O2 Delivery O2 Flow Rate FiO2 07/26/20 08:34 Room Air Current Medications Current Medications Medications (Trade) Dose Ordered Sig/Tong Route PRN Reason Start Time Stop Time Status Last Admin Dose Admin Al Hydrox/Mg Hydrox/Simethicone (Mylanta) 30 ml Q4HP PRN PO HEARTBURN/INDIGESTION 07/18/20 18:25 Benztropine Mesylate (Cogentin) 1 mg BID PRN PO EPS 07/19/20 15:30 Haloperidol (Haldol) 5 mg Q6HP PRN PO AGITATION 07/19/20 15:30 Haloperidol (Haldol) 5 mg TID PO 07/19/20 16:00 Home Med (Med Rec Complete!) ASDIRECTED XX 07/17/20 21:05 07/17/20 21:08 DC Ibuprofen (Advil) 400 mg Q6HP PRN PO PAIN 07/18/20 18:25 Magnesium Hydroxide (Milk Of Magnesia) 30 ml DAILYPRN PRN PO CONSTIPATION 07/18/20 18:25 Nicotine (Nicoderm Cq 21mg) 1 patch DAILY TD 07/19/20 09:00 Olanzapine (ZyPREXA ZYDIS) 5 mg BID PRN PO ANXIETY/AGITATION 07/18/20 18:25 07/19/20 15:32 DC Trazodone HCl (Desyrel) 50 mg QHSP PRN PO INSOMNIA 07/18/20 18:25 Allergies Coded Allergies: No Known Allergies (Unverified , 08/21/17) ALEX AGUIRRE NP Jul 26, 2020 13:02
[2020-07-27] MEDS: NICOTINE 21MG/24HR 1 EA TRANSDERMAL TD SCH (08:34)
[2020-07-27] MEDS: haloperidoL 5 MG TAB PO SCH ×3 (08:34→21:00)
[2020-07-27] MEDS ORDERED: diphenhydrAMINE 50MG/ML VIAL (J1200) IM ONE (11:00)
[2020-07-27] MEDS ORDERED: LORazepam 2 MG TAB PO ONE (11:00)
--- NOTE | 2020-07-27 17:31 | MHIPNPDOC ---
[facility] Progress Note Progress Note DATE OF SERVICE: 07/27/20 HISTORY:Patient is a 30 -year-old Single, Unemployed , male, who was brought by by Police, as he was found walking in the middle of the road, making bizarre statements. On interview, patient is tangential and hyperverbal has a long story about his travels on foot and he postulates that a passerby felt that he was walking strangely on the road. Patient is quite manic in his speech with flights of ideas, loose associations and displaying poor insight and judgment. States that he is into natural substances and does not want medications. Patient has had one previous admission to this facility in August 2017 with a diagnosis of Schizoaffective, Bipolar. Patient is unkempt. wearing his hair very long, has fungal on his toenail, states that he was living with a friend for a few days but alludes to being homeless for a few months. PER ED REPORT: Pt was brought to the ED by police on a 9.41 after being found walking in the middle of the road. Pt was making bizarre statements as well. When asked why he was brought to the ED by police, pt stated "There were reports made by people driving by me because of the unorthodox way I was flowing while traveling by foot down the highway." Pt states that these people made false allegations against him, but he admits that he was walking down the middle of the road on [address]. Pt states that the police "were corrupting the purity of my moment." He states that he is baptism & "I cannot be corrupted by rules because I am clever, witty, & kind." Pt states that he has walked close to 100 miles over the past few days. Pt is disheveled, unkempt, & malodorous. He states that he has not showered in at least a week. Pt's speech is rambling, rapid, pressured, & mumbled. His TP is disorganized & his concentration is poor. He will often start to answer a question & will then stop & ask what the question was. Pt denies both SI & HI. He denies any hx of suicide attempts or self-harm. Pt denies both AH & VH. He appears internally preoccupied at times, looking at the wall & mumbling. Pt denies both depression & anxiety. He reports "excellent" energy levels. He states that his sleep & appetite are good. When asked if he has a mental health dx he states "there was a false judgment against me a few years ago & they said I was bipolar." Pt has a hx of schizoaffective d/o with one admission to [facility]. He does not currently have OP tx. Pt reports occasional MJ use. He states that he uses alcohol occasionally & then states "less than five times per month." Pt's tox screen was negative. Pt states he has been homeless for four or five months. He states that over the course of that time he has stayed at hotels, [place], & with friends. Pt states that sometimes he does not have a place to stay so he just walks. VITAL SIGNS: See below. CURRENT MEDICATIONS: See below. MENTAL STATUS EXAMINATION: Patient is a 30 -year-old Single, Unemployed , male, who was brought by by Police, as he was found walking in the middle of the road, making bizarre statements. 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 Mood: hypomanic Affect: flat Thought Process: circumstantial, tangential, loose, flight of ideas, racing, derailment Thought Content (Delusions): grandiose, persecutory, bizarre, denies SI, HI, AVH, delusions Thought Content (Other): ideas of reference (baptism references) Thought Content (Aggressive): none reported Perception (Hallucinations): none reported Perception (Other): derealization, derailment Cognition (Impairment of): attention/concentration Cognition(Intelligence Est.): average Oriented: Awake, Alert, Oriented times three Insight: poor Judgment: Poor Psychosis: religiously preoccupied DIAGNOSES: Schizoaffective, Bipolar Type Nicotine Use Disorder Alcohol Use Disorder Cannabis Use Disorder ASSESSMENT: Patient was found walking in the hallway, he continues to state that there are no viable reasons for his admission to the hospital. I have attempted for several days to talk to him about his diagnosis, his treatment plan and the need for taking medications in order for him to improve and be stable enough to meet criteria for discharge. Patient talks over me and refuses to listen. He refused to speak in the interview room with the blood pressure machine, talked about the legal status that was given to him and he states that this was a false representation with false signatures. Reinforced that patient can seek mental health legal services to go to court about retention. He left the room numerous times during the interview, he often states that he is nervous and can't speak because his mouth is dry, returns to the room for a few minutes. Has a long tangential commentary about nonsensical things and then leaves again. Per staff he became extremely agitated when he refused to take a snack into his room. Patient was attempting to hide it in the art room in order to keep it "pure" When staff reinforced that he could not hide it in with books, he needed much redirecting and was ordered to go into his room as we was observed to have escalating behaviors. He continues to have poor insight and judgment. Later in the morning, he was calmer and asked what he needs to do in order to be able to be discharged. I reinforced with the patient that he needs to take medications for a period of time and he can be discharged. Patient will have difficulty getting housing due to his past violations, but this will should his ability to be discharged from the hospital. MANAGEMENT PLAN: Continue all medications, encourage patient to accept medications. Order to 2 [facility], [place] [facility] [place] will not take medications that will stabilize him. Will now start Treatment over objection. TIME SPENT: 25 minutes Vital Signs Vital Signs Date Time Temp Pulse Resp B/P (MAP) Pulse Ox O2 Delivery O2 Flow Rate FiO2 07/26/20 08:34 Room Air Current Medications Current Medications Medications (Trade) Dose Ordered Sig/Tong Route PRN Reason Start Time Stop Time Status Last Admin Dose Admin Al Hydrox/Mg Hydrox/Simethicone (Mylanta) 30 ml Q4HP PRN PO HEARTBURN/INDIGESTION 07/18/20 18:25 Benztropine Mesylate (Cogentin) 1 mg BID PRN PO EPS 07/19/20 15:30 Haloperidol (Haldol) 5 mg Q6HP PRN PO AGITATION 07/19/20 15:30 Haloperidol (Haldol) 5 mg TID PO 07/19/20 16:00 Home Med (Med Rec Complete!) ASDIRECTED XX 07/17/20 21:05 07/17/20 21:08 DC Ibuprofen (Advil) 400 mg Q6HP PRN PO PAIN 07/18/20 18:25 Magnesium Hydroxide (Milk Of Magnesia) 30 ml DAILYPRN PRN PO CONSTIPATION 07/18/20 18:25 Nicotine (Nicoderm Cq 21mg) 1 patch DAILY TD 07/19/20 09:00 Olanzapine (ZyPREXA ZYDIS) 5 mg BID PRN PO ANXIETY/AGITATION 07/18/20 18:25 07/19/20 15:32 DC Trazodone HCl (Desyrel) 50 mg QHSP PRN PO INSOMNIA 07/18/20 18:25 Allergies Coded Allergies: No Known Allergies (Unverified , 08/21/17) ALEX AGUIRRE NP Jul 27, 2020 17:31
[2020-07-28] MEDS: NICOTINE 21MG/24HR 1 EA TRANSDERMAL TD SCH (08:21)
[2020-07-28] MEDS: haloperidoL 5 MG TAB PO SCH ×3 (08:21→21:00)
[2020-07-29] MEDS: haloperidoL 5 MG TAB PO SCH ×3 (09:00→20:43)
[2020-07-29] MEDS: NICOTINE 21MG/24HR 1 EA TRANSDERMAL TD SCH (09:00)
[2020-07-30] MEDS: haloperidoL 5 MG TAB PO SCH ×3 (08:43→20:04)
[2020-07-30] MEDS: NICOTINE 21MG/24HR 1 EA TRANSDERMAL TD SCH (08:43)
--- NOTE | 2020-07-30 12:46 | MHIPNPDOC ---
[facility] Progress Note Progress Note DATE OF SERVICE: 07/30/20 HISTORY: Patient is a 30 -year-old Single, Unemployed , male, who was brought by by Police, as he was found walking in the middle of the road, making bizarre statements. On interview, patient is tangential and hyperverbal has a long story about his travels on foot and he postulates that a passerby felt that he was walking strangely on the road. Patient is quite manic in his speech with flights of ideas, loose associations and displaying poor insight and judgment. States that he is into natural substances and does not want medications. Patient has had one previous admission to this facility in August 2017 with a diagnosis of Schizoaffective, Bipolar. Patient is unkempt. wearing his hair very long, has fungal on his toenail, states that he was living with a friend for a few days but alludes to being homeless for a few months. PER ED REPORT: Pt was brought to the ED by police on a 9.41 after being found walking in the middle of the road. Pt was making bizarre statements as well. When asked why he was brought to the ED by police, pt stated "There were reports made by people driving by me because of the unorthodox way I was flowing while traveling by foot down the highway." Pt states that these people made false allegations against him, but he admits that he was walking down the middle of the road on [address]. Pt states that the police "were corrupting the purity of my moment." He states that he is jainism & "I cannot be corrupted by rules because I am clever, witty, & kind." Pt states that he has walked close to 100 miles over the past few days. Pt is disheveled, unkempt, & malodorous. He states that he has not showered in at least a week. Pt's speech is rambling, rapid, pressured, & mumbled. His TP is disorganized & his concentration is poor. He will often start to answer a question & will then stop & ask what the question was. Pt denies both SI & HI. He denies any hx of suicide attempts or self-harm. Pt denies both AH & VH. He appears internally preoccupied at times, looking at the wall & mumbling. Pt denies both depression & anxiety. He reports "excellent" energy levels. He states that his sleep & appetite are good. When asked if he has a mental health dx he states "there was a false judgment against me a few years ago & they said I was bipolar." Pt has a hx of schizoaffective d/o with one admission to [facility]. He does not currently have OP tx. Pt reports occasional MJ use. He states that he uses alcohol occasionally & then states "less than five times per month." Pt's tox screen was negative. Pt states he has been homeless for four or five months. He states that over the course of that time he has stayed at hotels, [place], & with friends. Pt states that sometimes he does not have a place to stay so he just walks. VITAL SIGNS: See below. CURRENT MEDICATIONS: See below. MENTAL STATUS EXAMINATION: Patient is a 30 -year-old Single, Unemployed , male, who was brought by by Police, as he was found walking in the middle of the road, making bizarre statements. General Appearance: hygiene and grooming is good, appears stated age, hospital scrubs/clothing, healed scars, other (tattoo right forearm, fungal toes, long nails, long hair and mills) Build: thin Demeanor: mistrustful, very guarded Eye Contact: average Activity: average Behavior: cooperative but not taking medications Speech: less rapid but normal volume, tangential, less loose associations Mood: hypomanic Affect: flat Thought Process: circumstantial, tangential, loose, less flight of ideas, Thought Content (Delusions): grandiose, persecutory, bizarre, denies SI, HI, AVH, delusions Thought Content (Other): ideas of reference (jainism references) Thought Content (Aggressive): none reported Perception (Hallucinations): none reported Perception (Other): derealization, derailment Cognition (Impairment of): attention/concentration Cognition(Intelligence Est.): average Oriented: Awake, Alert, Oriented times three Insight: poor Judgment: Poor Psychosis: religiously preoccupied DIAGNOSES: Schizoaffective, Bipolar Type Nicotine Use Disorder Alcohol Use Disorder Cannabis Use Disorder ASSESSMENT: Patient was found walking in the hallway continuously, attempted to meet with patient several times and he continued walking, stating he couldn't speak with me at that time. He continues to have poor insight and judgment. States that he "is holding off taking medications until after he speaks with mental health legal services" Patient has refused all medications that may stabilize him. He has not had ideations of self-harm or violence ideations. He denies depression or anxiety but patient has a lack of insight into his mental illness. He remains religiously preoccupied and is responding to internal stimuli, Later in the morning, he was calmer and asked what he needs to do in order to be able to be discharged. I have reinforced with the patient that he needs to take medications. Patient is not stable for discharge and is discharge is pending. MANAGEMENT PLAN: Continue all medications, encourage patient to accept medications. Order to 2 [facility], Transfer to [facility] [place] as patient will not take medications that will stabilize him. Will pursue Treatment over objection. TIME SPENT: 25 minutes Vital Signs Vital Signs Date Time Temp Pulse Resp B/P (MAP) Pulse Ox O2 Delivery O2 Flow Rate FiO2 07/26/20 08:34 Room Air Current Medications Current Medications Medications (Trade) Dose Ordered Sig/Tong Route PRN Reason Start Time Stop Time Status Last Admin Dose Admin Al Hydrox/Mg Hydrox/Simethicone (Mylanta) 30 ml Q4HP PRN PO HEARTBURN/INDIGESTION 07/18/20 18:25 Benztropine Mesylate (Cogentin) 1 mg BID PRN PO EPS 07/19/20 15:30 Haloperidol (Haldol) 5 mg Q6HP PRN PO AGITATION 07/19/20 15:30 Haloperidol (Haldol) 5 mg TID PO 07/19/20 16:00 Home Med (Med Rec Complete!) ASDIRECTED XX 07/17/20 21:05 07/17/20 21:08 DC Ibuprofen (Advil) 400 mg Q6HP PRN PO PAIN 07/18/20 18:25 Magnesium Hydroxide (Milk Of Magnesia) 30 ml DAILYPRN PRN PO CONSTIPATION 07/18/20 18:25 Nicotine (Nicoderm Cq 21mg) 1 patch DAILY TD 07/19/20 09:00 Olanzapine (ZyPREXA ZYDIS) 5 mg BID PRN PO ANXIETY/AGITATION 07/18/20 18:25 07/19/20 15:32 DC Trazodone HCl (Desyrel) 50 mg QHSP PRN PO INSOMNIA 07/18/20 18:25 Allergies Coded Allergies: No Known Allergies (Unverified , 08/21/17) ALEX AGUIRRE NP Jul 30, 2020 12:46
[2020-07-31] MEDS: NICOTINE 21MG/24HR 1 EA TRANSDERMAL TD SCH (09:00)
[2020-07-31] MEDS: haloperidoL 5 MG TAB PO SCH ×3 (09:00→20:40)
--- NOTE | 2020-07-31 11:26 | MHIPNPDOC ---
[facility] Progress Note Progress Note DATE OF SERVICE: 07/31/20 HISTORY: Patient is a 30 -year-old Single, Unemployed , male, who was brought by by Police, as he was found walking in the middle of the road, making bizarre statements. On interview, patient is tangential and hyperverbal has a long story about his travels on foot and he postulates that a passerby felt that he was walking strangely on the road. Patient is quite manic in his speech with flights of ideas, loose associations and displaying poor insight and judgment. States that he is into natural substances and does not want medications. Patient has had one previous admission to this facility in August 2017 with a diagnosis of Schizoaffective, Bipolar. Patient is unkempt. wearing his hair very long, has fungal on his toenail, states that he was living with a friend for a few days but alludes to being homeless for a few months. PER ED REPORT: Pt was brought to the ED by police on a 9.41 after being found walking in the middle of the road. Pt was making bizarre statements as well. When asked why he was brought to the ED by police, pt stated "There were reports made by people driving by me because of the unorthodox way I was flowing while traveling by foot down the highway." Pt states that these people made false allegations against him, but he admits that he was walking down the middle [place] [address]. Pt states that the police "were corrupting the purity of my moment." He states that he is lutheran & "I cannot be corrupted by rules because I am clever, witty, & kind." Pt states that he has walked close to 100 miles over the past few days. Pt is disheveled, unkempt, & malodorous. He states that he has not showered in at least a week. Pt's speech is rambling, rapid, pressured, & mumbled. His TP is disorganized & his concentration is poor. He will often start to answer a question & will then stop & ask what the question was. Pt denies both SI & HI. He denies any hx of suicide attempts or self-harm. Pt denies both AH & VH. He appears internally preoccupied at times, looking at the wall & mumbling. Pt denies both depression & anxiety. He reports "excellent" energy levels. He states that his sleep & appetite are good. When asked if he has a mental health dx he states "there was a false judgment against me a few years ago & they said I was bipolar." Pt has a hx of schizoaffective d/o with one admission to [facility]. He does not currently have OP tx. Pt reports occasional MJ use. He states that he uses alcohol occasionally & then states "less than five times per month." Pt's tox screen was negative. Pt states he has been homeless for four or five months. He states that over the course of that time he has stayed at hotels, [place] rescue mission, & with friends. Pt states that sometimes he does not have a place to stay so he just walks. VITAL SIGNS: See below. CURRENT MEDICATIONS: See below. MENTAL STATUS EXAMINATION: Patient is a 30 -year-old Single, Unemployed , male, who was brought by by Police, as he was found walking in the middle of the road, making bizarre statements. General Appearance: hygiene and grooming is poor , appears stated age, hospital scrubs/clothing, healed scars, other (tattoo right forearm, fungal toes, long nails, long hair and mills) Build: thin Demeanor: mistrustful, very guarded Eye Contact: average Activity: average Behavior: cooperative but not taking medications Speech: less rapid but normal volume, tangential, less loose associations Mood: hypomanic Affect: flat Thought Process: circumstantial, tangential, loose, less flight of ideas, Thought Content (Delusions): grandiose, persecutory, bizarre, denies SI, HI, AVH, delusions Thought Content (Other): ideas of reference (lutheran references) Thought Content (Aggressive): none reported Perception (Hallucinations): none reported Perception (Other): derealization, derailment Cognition (Impairment of): attention/concentration Cognition(Intelligence Est.): average Oriented: Awake, Alert, Oriented times three Insight: poor Judgment: Poor Psychosis: religiously preoccupied DIAGNOSES: Schizoaffective, Bipolar Type Nicotine Use Disorder Alcohol Use Disorder Cannabis Use Disorder ASSESSMENT: Patient has been walking in the hallway in a very fast pace today. Attempted to meet with patient and he could not meet with me. Later he was agreeable. He states that he is still waiting for mental health legal to discharge him. When I attempt to speak to him, he speaks over me and continues to have nonsensical statements about the food, his stay and his staying close to himself not wanting to engage with other patients "I am not antisocial but I am working on myself." When patient speaks he is very articulate in his wording bu t much of it is tangential and circumstantial. Patient is not stable, has poor insight, has not taken medications. Due to his lack of insight to his mental illness and his inability to receive housing, discharge planning is unsafe. We have attempted multiple times to reinforce the importance of compliance with recommended treatment, risks and benefits, diagnoses and the prognosis. Patient has refused to listen, does not acknowledge and will talk out the room. Patient is not attending to his ADLs, but does report that he is eating well. Per staff, he was made aware that he could not make changes to his menu and he became very agitated and was quite loud during the AM meal. He was redirected and compliant when staff asked him to return to his room. MANAGEMENT PLAN: Continue all medications, encourage patient to accept medications. Order to 2 [facility], Transfer to [facility] as patient will not take medications that will stabilize him. Will pursue Treatment over objection. TIME SPENT: 25 minutes Vital Signs Vital Signs Date Time Temp Pulse Resp B/P (MAP) Pulse Ox O2 Delivery O2 Flow Rate FiO2 07/26/20 08:34 Room Air Current Medications Current Medications Medications (Trade) Dose Ordered Sig/Tong Route PRN Reason Start Time Stop Time Status Last Admin Dose Admin Al Hydrox/Mg Hydrox/Simethicone (Mylanta) 30 ml Q4HP PRN PO HEARTBURN/INDIGESTION 07/18/20 18:25 Benztropine Mesylate (Cogentin) 1 mg BID PRN PO EPS 07/19/20 15:30 Haloperidol (Haldol) 5 mg Q6HP PRN PO AGITATION 07/19/20 15:30 Haloperidol (Haldol) 5 mg TID PO 07/19/20 16:00 Home Med (Med Rec Complete!) ASDIRECTED XX 07/17/20 21:05 07/17/20 21:08 DC Ibuprofen (Advil) 400 mg Q6HP PRN PO PAIN 07/18/20 18:25 Magnesium Hydroxide (Milk Of Magnesia) 30 ml DAILYPRN PRN PO CONSTIPATION 07/18/20 18:25 Nicotine (Nicoderm Cq 21mg) 1 patch DAILY TD 07/19/20 09:00 Olanzapine (ZyPREXA ZYDIS) 5 mg BID PRN PO ANXIETY/AGITATION 07/18/20 18:25 07/19/20 15:32 DC Trazodone HCl (Desyrel) 50 mg QHSP PRN PO INSOMNIA 07/18/20 18:25 Allergies Coded Allergies: No Known Allergies (Unverified , 08/21/17) ALEX AGUIRRE NP Jul 31, 2020 11:26
[2020-08-01] MEDS: NICOTINE 21MG/24HR 1 EA TRANSDERMAL TD SCH (09:00)
[2020-08-01] MEDS: haloperidoL 5 MG TAB PO SCH ×3 (09:00→20:11)
--- NOTE | 2020-08-01 12:21 | MHIPNPDOC ---
[facility] Progress Note Progress Note DATE OF SERVICE: 08/01/20 Evaluation for Treatment Over Objection July 26, 2020 Patient: Akash Min MR# [id number] : 1990 DOA: 07/18/2020 Legal Status: Involuntary 2 Physician Consent Nearest Relative: Name: Relationship Address 1) [id number] Section I Clinical Assessment: Clinical Summary/ History of present illness: Patient is a 30-year old male with a history of psychiatric hospitalizations to this facility and [facility]. He recently moved back to this area, after living in [place] and he may have had psychiatric admissions there but it is unknown. On this occasion patient was brought to the ED after he was walking on the highway and this behavior was reported to law enforcement. He presented with manic and delusional behaviors (religiously preoccupied and paranoid of electrical appliances) and has refused to take any medications while hospitalized, which would most likely help stabilize his manic and delusional thoughts. Patient became non-compliant with medication regime and outpatient Mental Health Services several years ago. He is banned from many places such schools, DSS and other public places due to his poor compliance, violations of rules and history of breaking and entering into homes, schools and businesses. Patient exhibits manic like behaviors, including rapid, pressured speech, delusional thought content, extremely poor insight and judgment. Diagnosis: Schizoaffective, Bipolar type Section II- Proposed Treatment: 1. Treatment recommended by treating physician should the patient refuse oral medication regimen as ordered by physician: Begin with short acting intramuscular medications such as Haldol 5mg-20mg daily, Prolixin 5mg-20mg daily, Zyprexa 5mg-30mg daily or Thorazine 5mg-200mg daily Introduce long acting intramuscular medications such as Haldol decanoate 50mg-100mg every 2 weeks, Prolixin decanoate 25mg-100mg every 2 weeks, Risperdal Consta 25mg-50mg every 2 weeks or Sustenna 117mg-234mg every 1-3 weeks once appropriate titration of short acting medication has been reached Patient may require a combination of both short and long acting medication during the titration period in order to control symptoms and determine most effective maintenance dosage for long acting medication 1.Reasonable alternative, if any are: None 2.Has the patient been tried on proposed treatment? The patient is currently refusing any psychotropic medications, and it is unclear as to the patients past medication regime as he has not been taking medications for several years. 3. Has the patient been tried on other treatments? Patient discharged from this unit on 09/01/17 on Abilify 5 mg in AM and 10 mg PM. Paliperidone 6 mg daily. 4. Anticipated benefits for proposed treatment: Reduction of manic symptoms, increased ability to organize his thoughts, improved ability to take care of himself, especially in regards to taking his medications. The benefits for the patient taking medications at this early stage will improve correction prognosis. It will improve his ability to communicate without manic thinking. The treatment teams hope is that patient will return to living in the community independently. 5. Reasonably foreseeable adverse effects are: Neuroleptic Malignant Syndrome, tardive Dyskinesia, over-sedation, and other minor effects. 6. Prognosis without treatment is: The patient will remain with current symptoms likely leading to continued exacerbation of illness. He will potentially require additional/continued hospitalization, and the propensity exists that it will be more difficult to bring the patient back to baseline behavior and functioning. Patient will remain at risk of danger to self or others. Section III- Patients capacity: 1) Explained to the patient: ___X___Yes No a)Condition ___X___Yes No b)Proposed treatment ___X____Yes No c)Anticipated benefits of treatment ___X___Yes No d)Risks of adverse effects of treatment ___X___Yes No e)Availability ( if any) of other treatments and comparison of benefits and risks with proposed treatment. ___X____Yes No f)Risk if no treatment Vital Signs Vital Signs Date Time Temp Pulse Resp B/P (MAP) Pulse Ox O2 Delivery O2 Flow Rate FiO2 07/26/20 08:34 Room Air Current Medications Current Medications Medications (Trade) Dose Ordered Sig/Tong Route PRN Reason Start Time Stop Time Status Last Admin Dose Admin Al Hydrox/Mg Hydrox/Simethicone (Mylanta) 30 ml Q4HP PRN PO HEARTBURN/INDIGESTION 07/18/20 18:25 Benztropine Mesylate (Cogentin) 1 mg BID PRN PO EPS 07/19/20 15:30 Haloperidol (Haldol) 5 mg Q6HP PRN PO AGITATION 07/19/20 15:30 Haloperidol (Haldol) 5 mg TID PO 07/19/20 16:00 Home Med (Med Rec Complete!) ASDIRECTED XX 07/17/20 21:05 07/17/20 21:08 DC Ibuprofen (Advil) 400 mg Q6HP PRN PO PAIN 07/18/20 18:25 Magnesium Hydroxide (Milk Of Magnesia) 30 ml DAILYPRN PRN PO CONSTIPATION 07/18/20 18:25 Nicotine (Nicoderm Cq 21mg) 1 patch DAILY TD 07/19/20 09:00 Olanzapine (ZyPREXA ZYDIS) 5 mg BID PRN PO ANXIETY/AGITATION 07/18/20 18:25 07/19/20 15:32 DC Trazodone HCl (Desyrel) 50 mg QHSP PRN PO INSOMNIA 07/18/20 18:25 Allergies Coded Allergies: No Known Allergies (Unverified , 08/21/17) SHYAM TODD MD Aug 01, 2020 12:14
--- NOTE | 2020-08-01 13:22 | MHIPNPDOC ---
[facility] Progress Note Progress Note DATE OF SERVICE: 08/01/20 Patient is a 30 -year-old Single, Unemployed , male, who was brought by by Police, as he was found walking in the middle of the road, making bizarre statements. On interview, patient is tangential and hyperverbal has a long story about his travels on foot and he postulates that a passerby felt that he was walking strangely on the road. Patient is quite manic in his speech with flights of ideas, loose associations and displaying poor insight and judgment. States that he is into natural substances and does not want medications. Patient has had one previous admission to this facility in August 2017 with a diagnosis of Schizoaffective, Bipolar. Patient is unkempt. wearing his hair very long, has fungal on his toenail, states that he was living with a friend for a few days but alludes to being homeless for a few months. PER ED REPORT: Pt was brought to the ED by police on a 9.41 after being found walking in the middle of the road. Pt was making bizarre statements as well. When asked why he was brought to the ED by police, pt stated "There were reports made by people driving by me because of the unorthodox way I was flowing while traveling by foot down the highway." Pt states that these people made false allegations against him, but he admits that he was walking down the middle of the road on [address]. Pt states that the police "were corrupting the purity of my moment." He states that he is yarsani & "I cannot be corrupted by rules because I am clever, witty, & kind." Pt states that he has walked close to 100 miles over the past few days. Pt is disheveled, unkempt, & malodorous. He states that he has not showered in at least a week. Pt's speech is rambling, rapid, pressured, & mumbled. His TP is disorganized & his concentration is poor. He will often start to answer a question & will then stop & ask what the question was. Pt denies both SI & HI. He denies any hx of suicide attempts or self-harm. Pt denies both AH & VH. He appears internally preoccupied at times, looking at the wall & mumbling. Pt denies both depression & anxiety. He reports "excellent" energy levels. He states that his sleep & appetite are good. When asked if he has a mental health dx he states "there was a false judgment against me a few years ago & they said I was bipolar." Pt has a hx of schizoaffective d/o with one admission to [facility]. He does not currently have OP tx. Pt reports occasional MJ use. He states that he uses alcohol occasionally & then states "less than five times per month." Pt's tox screen was negative. Pt states he has been homeless for four or five months. He states that over the course of that time he has stayed at hotels, [place], & with friends. Pt states that sometimes he does not have a place to stay so he just walks. VITAL SIGNS: See below. CURRENT MEDICATIONS: See below. MENTAL STATUS EXAMINATION: Patient is a 30 -year-old Single, Unemployed , male, who was brought by by Police, as he was found walking in the middle of the road, making bizarre statements. General Appearance: hygiene and grooming is poor , appears stated age, hospital scrubs/clothing, healed scars, other (tattoo right forearm, fungal toes, long nails, long hair and milsl) Build: thin Demeanor: cooperative, pleasant Eye Contact: average Activity: average Behavior: cooperative but not taking medications Speech: normal volume, tangential, less loose associations Mood: less hypomanic Affect: flat Thought Process: less tangential, less flight of ideas, Thought Content (Delusions): less grandiose, less persecutory, less bizarre, denies SI, HI, AVH, delusions Thought Content (Other): ideas of reference (yarsani references) Thought Content (Aggressive): none reported Perception (Hallucinations): none reported Perception (Other): derealization, derailment Cognition (Impairment of): attention/concentration Cognition(Intelligence Est.): average Oriented: Awake, Alert, Oriented times three Insight: poor Judgment: Poor Psychosis: religiously preoccupied DIAGNOSES: Schizoaffective, Bipolar Type Nicotine Use Disorder Alcohol Use Disorder Cannabis Use Disorder ASSESSMENT: Patient was observed with less manic behavior but this was only for a short period. Patient is less tangential in his speech. He attempts to use an excessive amount of big words in his speech. He appears to be sophomanic and grandiose. Patient had a short period of linear thought processing this morning and was able to have a lucid conversation with provider and event planner. Reinforced with patient that he does not have a safe discharge plan and lacks finances to for things like food. He states that he will access food pantries. Patient has no income, has no supports, has been banned from DSS and certain shelters. A nurse approached him about sharing a room and he became very agitated and aggressive and making yarsani statements. He is now observed to be pacing the floors. Patient continues to have poor insight and judgment Symptoms Uncontrolled symptoms of presenting illness (maritza and psychosis) Severe impairment in insight/judgment. Patient is unable to make safe decisions related to daily living Medication interventions offered and patient continues to refuse Symptom control so tenuous that immediate rehospitalization highly likely if patient discharged Barriers to discharge o Patient was not sufficiently stable for discharge o Patient unable to care for self as he lacks insight and judgment o Awaiting court proceedings/rulings pursing Treatment over Objection o Transferring to [facility] MANAGEMENT PLAN: Continue all medications, encourage patient to accept medications. Order to 2 [facility], Transfer to [facility] as patient will not take medications that will stabilize him. Treatment over objection. TIME SPENT: 25 minutes Vital Signs Vital Signs Date Time Temp Pulse Resp B/P (MAP) Pulse Ox O2 Delivery O2 Flow Rate FiO2 07/26/20 08:34 Room Air Current Medications Current Medications Medications (Trade) Dose Ordered Sig/Tong Route PRN Reason Start Time Stop Time Status Last Admin Dose Admin Al Hydrox/Mg Hydrox/Simethicone (Mylanta) 30 ml Q4HP PRN PO HEARTBURN/INDIGESTION 07/18/20 18:25 Benztropine Mesylate (Cogentin) 1 mg BID PRN PO EPS 07/19/20 15:30 Haloperidol (Haldol) 5 mg Q6HP PRN PO AGITATION 07/19/20 15:30 Haloperidol (Haldol) 5 mg TID PO 07/19/20 16:00 Home Med (Med Rec Complete!) ASDIRECTED XX 07/17/20 21:05 07/17/20 21:08 DC Ibuprofen (Advil) 400 mg Q6HP PRN PO PAIN 07/18/20 18:25 Magnesium Hydroxide (Milk Of Magnesia) 30 ml DAILYPRN PRN PO CONSTIPATION 07/18/20 18:25 Nicotine (Nicoderm Cq 21mg) 1 patch DAILY TD 07/19/20 09:00 Olanzapine (ZyPREXA ZYDIS) 5 mg BID PRN PO ANXIETY/AGITATION 07/18/20 18:25 07/19/20 15:32 DC Trazodone HCl (Desyrel) 50 mg QHSP PRN PO INSOMNIA 07/18/20 18:25 Allergies Coded Allergies: No Known Allergies (Unverified , 08/21/17) ALEX AGUIRRE NP Aug 01, 2020 12:51
[2020-08-01] MEDS ORDERED: LORazepam 2 MG/ML VIAL IM ONE (15:00)
[2020-08-01] MEDS ORDERED: HALOPERIDOL 5MG/ML VIAL (J1630 PER 1) IM ONE (15:00)
[2020-08-01] MEDS ORDERED: diphenhydrAMINE 50MG/ML VIAL (J1200) IM ONE (15:00)
[2020-08-02] MEDS: haloperidoL 5 MG TAB PO SCH ×3 (09:00→20:27)
[2020-08-02] MEDS: NICOTINE 21MG/24HR 1 EA TRANSDERMAL TD SCH (09:00)
--- NOTE | 2020-08-02 13:51 | MHIPNPDOC ---
[facility] Progress Note Progress Note Date of Service: 08/02/20 Patient is a 30 -year-old Single, Unemployed , male, who was brought by by Police, as he was found walking in the middle of the road, making bizarre statements. On interview, patient is tangential and hyperverbal has a long story about his travels on foot and he postulates that a passerby felt that he was walking strangely on the road. Patient is quite manic in his speech with flights of ideas, loose associations and displaying poor insight and judgment. States that he is into natural substances and does not want medications. Patient has had one previous admission to this facility in August 2017 with a diagnosis of Schizoaffective, Bipolar. Patient is unkempt. wearing his hair very long, has fungal on his toenail, states that he was living with a friend for a few days but alludes to being homeless for a few months. PER ED REPORT: Pt was brought to the ED by police on a 9.41 after being found walking in the middle of the road. Pt was making bizarre statements as well. When asked why he was brought to the ED by police, pt stated "There were reports made by people driving by me because of the unorthodox way I was flowing while traveling by foot down the highway." Pt states that these people made false allegations against him, but he admits that he was walking down the middle [place] [address]. Pt states that the police "were corrupting the purity of my moment." He states that he is episcopal & "I cannot be corrupted by rules because I am clever, witty, & kind." Pt states that he has walked close to 100 miles over the past few days. Pt is disheveled, unkempt, & malodorous. He states that he has not showered in at least a week. Pt's speech is rambling, rapid, pressured, & mumbled. His TP is disorganized & his concentration is poor. He will often start to answer a question & will then stop & ask what the question was. Pt denies both SI & HI. He denies any hx of suicide attempts or self-harm. Pt denies both AH & VH. He appears internally preoccupied at times, looking at the wall & mumbling. Pt denies both depression & anxiety. He reports "excellent" energy levels. He states that his sleep & appetite are good. When asked if he has a mental health dx he states "there was a false judgment against me a few years ago & they said I was bipolar." Pt has a hx of schizoaffective d/o with one admission to [facility]. He does not currently have OP tx. Pt reports occasional MJ use. He states that he uses alcohol occasionally & then states "less than five times per month." Pt's tox screen was negative. Pt states he has been homeless for four or five months. He states that over the course of that time he has stayed at hotels, [place], & with friends. Pt states that sometimes he does not have a place to stay so he just walks. VITAL SIGNS: See below. CURRENT MEDICATIONS: See below. MENTAL STATUS EXAMINATION: Patient is a 30 -year-old Single, Unemployed , male, who was brought by by Police, as he was found walking in the middle of the road, making bizarre statements. General Appearance: hygiene and grooming is poor , appears stated age, hospital scrubs/clothing, healed scars, other (tattoo right forearm, fungal toes, long nails, long hair and mills) Build: thin Demeanor: cooperative, pleasant Eye Contact: average Activity: average Behavior: cooperative but not taking medications Speech: normal volume, tangential, less loose associations Mood: less hypomanic Affect: flat Thought Process: less tangential, less flight of ideas, Thought Content (Delusions): less grandiose, less persecutory, less bizarre, denies SI, HI, AVH, delusions Thought Content (Other): ideas of reference (episcopal references) Thought Content (Aggressive): none reported Perception (Hallucinations): none reported Perception (Other): derealization, derailment Cognition (Impairment of): attention/concentration Cognition(Intelligence Est.): average Oriented: Awake, Alert, Oriented times three Insight: poor Judgment: Poor Psychosis: religiously preoccupied DIAGNOSES: Schizoaffective, Bipolar Type Nicotine Use Disorder Alcohol Use Disorder Cannabis Use Disorder ASSESSMENT: Patient is seen today but he refused to answer questions. He is observed in the hallway, walking. He came into the interview and stated that he wants a taxi or Uber to his friend's house (he doesn't have an address or phone number for this friend) he feels that he has stabilized and can be discharged soon. Patient refuses all medications, does not have means of supporting himself in the community, has no housing, he has had several legal issues due to his poor insight and judgment probably because he was in the midst of his illness and lacked the capacity to have good insight. When asked about his finances patient has a long tangential dialogue about not needing money for food or care home. He continues to have sophomanic speech. He is less manic and less over productive in his speech but less rapid and circumstantial today. Symptoms Uncontrolled symptoms of presenting illness (maritza and psychosis) Severe impairment in insight/judgment. Patient is unable to make safe decisions related to daily living Medication interventions offered and patient continues to refuse Symptom control so tenuous that immediate rehospitalization highly likely if patient discharged Barriers to discharge o Patient was not sufficiently stable for discharge o Patient unable to care for self as he lacks insight and judgment o Awaiting court proceedings/rulings pursing Treatment over Objection o Transferring to [facility] MANAGEMENT PLAN: Continue all medications, encourage patient to accept medications. Order to 2 PC, Transfer to [facility] as patient will not take medications that will stabilize him. Treatment over objection. TIME SPENT: 15 minutes Current Medications Current Medications Medications (Trade) Dose Ordered Sig/Tong Route PRN Reason Start Time Stop Time Status Last Admin Dose Admin Al Hydrox/Mg Hydrox/Simethicone (Mylanta) 30 ml Q4HP PRN PO HEARTBURN/INDIGESTION 07/18/20 18:25 Benztropine Mesylate (Cogentin) 1 mg BID PRN PO EPS 07/19/20 15:30 Haloperidol (Haldol) 5 mg Q6HP PRN PO AGITATION 07/19/20 15:30 Haloperidol (Haldol) 5 mg TID PO 07/19/20 16:00 Home Med (Med Rec Complete!) ASDIRECTED XX 07/17/20 21:05 07/17/20 21:08 DC Ibuprofen (Advil) 400 mg Q6HP PRN PO PAIN 07/18/20 18:25 Magnesium Hydroxide (Milk Of Magnesia) 30 ml DAILYPRN PRN PO CONSTIPATION 07/18/20 18:25 Nicotine (Nicoderm Cq 21mg) 1 patch DAILY TD 07/19/20 09:00 Olanzapine (ZyPREXA ZYDIS) 5 mg BID PRN PO ANXIETY/AGITATION 07/18/20 18:25 07/19/20 15:32 DC Trazodone HCl (Desyrel) 50 mg QHSP PRN PO INSOMNIA 07/18/20 18:25 Allergies Coded Allergies: No Known Allergies (Unverified , 08/21/17) ALEX AGUIRRE NP Aug 02, 2020 13:51
[2020-08-03] MEDS: haloperidoL 5 MG TAB PO SCH ×3 (08:26→21:55)
[2020-08-03] MEDS: NICOTINE 21MG/24HR 1 EA TRANSDERMAL TD SCH (08:27)
--- NOTE | 2020-08-03 13:59 | MHIPNPDOC ---
[facility] Progress Note Progress Note Date of Service: 08/03/20 HISTORY: Patient is a 30 -year-old Single, Unemployed , male, who was brought by by Police, as he was found walking in the middle of the road, making bizarre statements. On interview, patient is tangential and hyperverbal has a long story about his travels on foot and he postulates that a passerby felt that he was walking strangely on the road. Patient is quite manic in his speech with flights of ideas, loose associations and displaying poor insight and judgment. States that he is into natural substances and does not want medications. Patient has had one previous admission to this facility in August 2017 with a diagnosis of Schizoaffective, Bipolar. Patient is unkempt. wearing his hair very long, has fungal on his toenail, states that he was living with a friend for a few days but alludes to being homeless for a few months. PER ED REPORT: Pt was brought to the ED by police on a 9.41 after being found walking in the middle of the road. Pt was making bizarre statements as well. When asked why he was brought to the ED by police, pt stated "There were reports made by people driving by me because of the unorthodox way I was flowing while traveling by foot down the highway." Pt states that these people made false allegations against him, but he admits that he was walking down the middle of the road on [address]. Pt states that the police "were corrupting the purity of my moment." He states that he is cheondoism & "I cannot be corrupted by rules because I am clever, witty, & kind." Pt states that he has walked close to 100 miles over the past few days. Pt is disheveled, unkempt, & malodorous. He states that he has not showered in at least a week. Pt's speech is rambling, rapid, pressured, & mumbled. His TP is disorganized & his concentration is poor. He will often start to answer a question & will then stop & ask what the question was. Pt denies both SI & HI. He denies any hx of suicide attempts or self-harm. Pt denies both AH & VH. He appears internally preoccupied at times, looking at the wall & mumbling. Pt denies both depression & anxiety. He reports "excellent" energy levels. He states that his sleep & appetite are good. When asked if he has a mental health dx he states "there was a false judgment against me a few years ago & they said I was bipolar." Pt has a hx of schizoaffective d/o with one admission to [facility]. He does not currently have OP tx. Pt reports occasional MJ use. He states that he uses alcohol occasionally & then states "less than five times per month." Pt's tox screen was negative. Pt states he has been homeless for four or five months. He states that over the course of that time he has stayed at hotels, [place], & with friends. Pt states that sometimes he does not have a place to stay so he just walks. VITAL SIGNS: See below. CURRENT MEDICATIONS: See below. MENTAL STATUS EXAMINATION: Patient is a 30 -year-old Single, Unemployed , male, who was brought by by Police, as he was found walking in the middle of the road, making bizarre statements. General Appearance: hygiene and grooming is poor , appears stated age, hospital scrubs/clothing, healed scars, other (tattoo right forearm, fungal toes, long nails, long hair and mills) Build: thin Demeanor: cooperative, pleasant Eye Contact: average Activity: average Behavior: cooperative but not taking medications Speech: normal volume, tangential, less loose associations Mood: milder hypomania Affect: flat Thought Process: tangential, less flight of ideas, circumstantial Thought Content (Delusions): less grandiose, less persecutory, less bizarre, denies SI, HI, AVH, delusions Thought Content (Other): ideas of reference (cheondoism references), grandiosity Thought Content (Aggressive): none reported Perception (Hallucinations): none reported Perception (Other): Cognition (Impairment of): attention/concentration Cognition(Intelligence Est.): average Oriented: Awake, Alert, Oriented times three Insight: poor Judgment: Poor Psychosis: religiously preoccupied DIAGNOSES: Schizoaffective, Bipolar Type Nicotine Use Disorder Alcohol Use Disorder Cannabis Use Disorder ASSESSMENT: Patient refused to speak with provider today, states "I am not sure what we need to speak about, I want to be discharged." Patient is less manic, he is eating and sleeping well, he denies depression and anxiety. He appears to have less racing thoughts. He has refused medications that I believe may stabilize his delusional thinking. He denies that he needs medications, money or need for skilled nursing. He states that he can stay at a friend's house, but again does not know the address or phone in order for staff to verify this. He refuses provider and land planner to speak to family to establish verification of safe discharge. Patient has a history homelessness, unemployment due to his mental illness and history of poor compliance. Discharging without a safe plan would most likely result in a readmission. Symptoms Severe impairment in insight/judgment. Patient is unable to make safe decisions related to daily living Medication interventions offered and patient continues to refuse Symptom control so tenuous that immediate rehospitalization highly likely if patient discharged Barriers to discharge o Patient was not sufficiently stable for discharge o Patient unable to care for self as he lacks insight and judgment o Awaiting court proceedings/rulings pursing Treatment over Objection o Transferring to [facility] MANAGEMENT PLAN: Continue all medications, encourage patient to accept medications. Order to 2 PC, Transfer to [facility] as patient will not take medications that will stabilize him. Treatment over objection. TIME SPENT: 15 minutes Current Medications Current Medications Medications (Trade) Dose Ordered Sig/Tong Route PRN Reason Start Time Stop Time Status Last Admin Dose Admin Al Hydrox/Mg Hydrox/Simethicone (Mylanta) 30 ml Q4HP PRN PO HEARTBURN/INDIGESTION 07/18/20 18:25 Benztropine Mesylate (Cogentin) 1 mg BID PRN PO EPS 07/19/20 15:30 Haloperidol (Haldol) 5 mg Q6HP PRN PO AGITATION 07/19/20 15:30 Haloperidol (Haldol) 5 mg TID PO 07/19/20 16:00 Home Med (Med Rec Complete!) ASDIRECTED XX 07/17/20 21:05 07/17/20 21:08 DC Ibuprofen (Advil) 400 mg Q6HP PRN PO PAIN 07/18/20 18:25 Magnesium Hydroxide (Milk Of Magnesia) 30 ml DAILYPRN PRN PO CONSTIPATION 07/18/20 18:25 Nicotine (Nicoderm Cq 21mg) 1 patch DAILY TD 07/19/20 09:00 Olanzapine (ZyPREXA ZYDIS) 5 mg BID PRN PO ANXIETY/AGITATION 07/18/20 18:25 07/19/20 15:32 DC Trazodone HCl (Desyrel) 50 mg QHSP PRN PO INSOMNIA 07/18/20 18:25 Allergies Coded Allergies: No Known Allergies (Unverified , 08/21/17) ALEX AGUIRRE NP Aug 03, 2020 13:52
[2020-08-04] MEDS: haloperidoL 5 MG TAB PO SCH ×3 (09:00→20:16)
[2020-08-04] MEDS: NICOTINE 21MG/24HR 1 EA TRANSDERMAL TD SCH (09:00)
[2020-08-05] MEDS: NICOTINE 21MG/24HR 1 EA TRANSDERMAL TD SCH (09:00)
[2020-08-05] MEDS: haloperidoL 5 MG TAB PO SCH ×3 (09:00→21:00)
[2020-08-06] MEDS: NICOTINE 21MG/24HR 1 EA TRANSDERMAL TD SCH (09:00)
[2020-08-06] MEDS: haloperidoL 5 MG TAB PO SCH ×3 (09:00→20:51)
--- NOTE | 2020-08-06 13:26 | MHIPNPDOC ---
[facility] Progress Note Progress Note Date of Service: 08/06/20 HISTORY: Patient is a 30 -year-old Single, Unemployed , male, who was brought by by Police, as he was found walking in the middle of the road, making bizarre statements. On interview, patient is tangential and hyperverbal has a long story about his travels on foot and he postulates that a passerby felt that he was walking strangely on the road. Patient is quite manic in his speech with flights of ideas, loose associations and displaying poor insight and judgment. States that he is into natural substances and does not want medications. Patient has had one previous admission to this facility in August 2017 with a diagnosis of Schizoaffective, Bipolar. Patient is unkempt. wearing his hair very long, has fungal on his toenail, states that he was living with a friend for a few days but alludes to being homeless for a few months. PER ED REPORT: Pt was brought to the ED by police on a 9.41 after being found walking in the middle of the road. Pt was making bizarre statements as well. When asked why he was brought to the ED by police, pt stated "There were reports made by people driving by me because of the unorthodox way I was flowing while traveling by foot down the highway." Pt states that these people made false allegations against him, but he admits that he was walking down the middle of the road on [address]. Pt states that the police "were corrupting the purity of my moment." He states that he is confucianist & "I cannot be corrupted by rules because I am clever, witty, & kind." Pt states that he has walked close to 100 miles over the past few days. Pt is disheveled, unkempt, & malodorous. He states that he has not showered in at least a week. Pt's speech is rambling, rapid, pressured, & mumbled. His TP is disorganized & his concentration is poor. He will often start to answer a question & will then stop & ask what the question was. Pt denies both SI & HI. He denies any hx of suicide attempts or self-harm. Pt denies both AH & VH. He appears internally preoccupied at times, looking at the wall & mumbling. Pt denies both depression & anxiety. He reports "excellent" energy levels. He states that his sleep & appetite are good. When asked if he has a mental health dx he states "there was a false judgment against me a few years ago & they said I was bipolar." Pt has a hx of schizoaffective d/o with one admission to [facility]. He does not currently have OP tx. Pt reports occasional MJ use. He states that he uses alcohol occasionally & then states "less than five times per month." Pt's tox screen was negative. Pt states he has been homeless for four or five months. He states that over the course of that time he has stayed at hotels, [place], & with friends. Pt states that sometimes he does not have a place to stay so he just walks. VITAL SIGNS: See below. CURRENT MEDICATIONS: See below. MENTAL STATUS EXAMINATION: Patient is a 30 -year-old Single, Unemployed , male, who was brought by by Police, as he was found walking in the middle of the road, making bizarre statements. General Appearance: hygiene and grooming is poor , appears stated age, hospital scrubs/clothing, healed scars, other (tattoo right forearm, fungal toes, long nails, long hair and mills) Build: thin Demeanor: cooperative, pleasant Eye Contact: average Activity: average Behavior: cooperative but not taking medications Speech: normal volume, tangential, less loose associations Mood: milder hypomania Affect: flat Thought Process: tangential, less flight of ideas, circumstantial Thought Content (Delusions): less grandiose, less persecutory, less bizarre, denies SI, HI, AVH, delusions Thought Content (Other): ideas of reference (confucianist references), grandiosity Thought Content (Aggressive): none reported Perception (Hallucinations): none reported Perception (Other): Cognition (Impairment of): attention/concentration Cognition(Intelligence Est.): average Oriented: Awake, Alert, Oriented times three Insight: poor Judgment: Poor Psychosis: religiously preoccupied DIAGNOSES: Schizoaffective, Bipolar Type Nicotine Use Disorder Alcohol Use Disorder Cannabis Use Disorder ASSESSMENT: Patient refuses to speak with provider. Over the weekend he told staff that he is being discharged and that he was not working with provider, but only with Kyler the party planner. Stated over the weekend that he was viewed as manic initially and that it was a misunderstanding. He does not want to brush his teeth feels that medications are not healthy and wants to do a natural approach. Patient is not acting out currently, but can be labile several times during the day. Severe impairment in insight/judgment. Patient is unable to make safe decisions related to daily living, reasons for continued hospitalization: Patient unable to care for self as he lacks insight and judgment, waiting court proceedings/rulings pursing Treatment over Objection, Transferring to [facility] MANAGEMENT PLAN: Continue all medications, encourage patient to accept medications. Order to 2 PC, Transfer to [facility] as patient will not take medications that will stabilize him. Treatment over objection. TIME SPENT: 15 minutes Current Medications Current Medications Medications (Trade) Dose Ordered Sig/Tong Route PRN Reason Start Time Stop Time Status Last Admin Dose Admin Al Hydrox/Mg Hydrox/Simethicone (Mylanta) 30 ml Q4HP PRN PO HEARTBURN/INDIGESTION 07/18/20 18:25 Benztropine Mesylate (Cogentin) 1 mg BID PRN PO EPS 07/19/20 15:30 Haloperidol (Haldol) 5 mg Q6HP PRN PO AGITATION 07/19/20 15:30 Haloperidol (Haldol) 5 mg TID PO 07/19/20 16:00 Home Med (Med Rec Complete!) ASDIRECTED XX 07/17/20 21:05 07/17/20 21:08 DC Ibuprofen (Advil) 400 mg Q6HP PRN PO PAIN 07/18/20 18:25 Magnesium Hydroxide (Milk Of Magnesia) 30 ml DAILYPRN PRN PO CONSTIPATION 07/18/20 18:25 Nicotine (Nicoderm Cq 21mg) 1 patch DAILY TD 07/19/20 09:00 Olanzapine (ZyPREXA ZYDIS) 5 mg BID PRN PO ANXIETY/AGITATION 07/18/20 18:25 07/19/20 15:32 DC Trazodone HCl (Desyrel) 50 mg QHSP PRN PO INSOMNIA 07/18/20 18:25 Allergies Coded Allergies: No Known Allergies (Unverified , 08/21/17) ALEX AGUIRRE NP Aug 06, 2020 13:23
[2020-08-07] MEDS: haloperidoL 5 MG TAB PO SCH ×3 (08:59→20:16)
[2020-08-07] MEDS: NICOTINE 21MG/24HR 1 EA TRANSDERMAL TD SCH (08:59)
--- NOTE | 2020-08-07 10:45 | MHIPNPDOC ---
[facility] Progress Note Progress Note Date of Service: 08/07/20 HISTORY: Patient is a 30 -year-old Single, Unemployed , male, who was brought by by Police, as he was found walking in the middle of the road, making bizarre statements. On interview, patient is tangential and hyperverbal has a long story about his travels on foot and he postulates that a passerby felt that he was walking strangely on the road. Patient is quite manic in his speech with flights of ideas, loose associations and displaying poor insight and judgment. States that he is into natural substances and does not want medications. Patient has had one previous admission to this facility in August 2017 with a diagnosis of Schizoaffective, Bipolar. Patient is unkempt. wearing his hair very long, has fungal on his toenail, states that he was living with a friend for a few days but alludes to being homeless for a few months. PER ED REPORT: Pt was brought to the ED by police on a 9.41 after being found walking in the middle of the road. Pt was making bizarre statements as well. When asked why he was brought to the ED by police, pt stated "There were reports made by people driving by me because of the unorthodox way I was flowing while traveling by foot down the highway." Pt states that these people made false allegations against him, but he admits that he was walking down the middle [place] [address]. Pt states that the police "were corrupting the purity of my moment." He states that he is congregational & "I cannot be corrupted by rules because I am clever, witty, & kind." Pt states that he has walked close to 100 miles over the past few days. Pt is disheveled, unkempt, & malodorous. He states that he has not showered in at least a week. Pt's speech is rambling, rapid, pressured, & mumbled. His TP is disorganized & his concentration is poor. He will often start to answer a question & will then stop & ask what the question was. Pt denies both SI & HI. He denies any hx of suicide attempts or self-harm. Pt denies both AH & VH. He appears internally preoccupied at times, looking at the wall & mumbling. Pt denies both depression & anxiety. He reports "excellent" energy levels. He states that his sleep & appetite are good. When asked if he has a mental health dx he states "there was a false judgment against me a few years ago & they said I was bipolar." Pt has a hx of schizoaffective d/o with one admission to [facility]. He does not currently have OP tx. Pt reports occasional MJ use. He states that he uses alcohol occasionally & then states "less than five times per month." Pt's tox screen was negative. Pt states he has been homeless for four or five months. He states that over the course of that time he has stayed at hotels, [place], & with friends. Pt states that sometimes he does not have a place to stay so he just walks. VITAL SIGNS: See below. CURRENT MEDICATIONS: See below. MENTAL STATUS EXAMINATION: Patient is a 30 -year-old Single, Unemployed , male, who was brought by by Police, as he was found walking in the middle of the road, making bizarre statements. General Appearance: hygiene and grooming is poor , appears stated age, hospital scrubs/clothing, healed scars, other (tattoo right forearm, fungal toes, long nails, long hair and mills) Build: thin Demeanor: cooperative Eye Contact: fleeting Activity: average Behavior: cooperative but not taking medications Speech: normal volume, tangential, less loose associations Mood: euthymic Affect: flat Thought Process: tangential, less flight of ideas, circumstantial Thought Content (Delusions): less grandiose, less persecutory, less bizarre, denies SI, HI, AVH, delusions Thought Content (Other): ideas of reference (congregational references), grandiosity Thought Content (Aggressive): none reported Perception (Hallucinations): none reported Perception (Other): Cognition (Impairment of): attention/concentration Cognition(Intelligence Est.): average Oriented: Awake, Alert, Oriented times three Insight: poor Judgment: Poor Psychosis: religiously preoccupied DIAGNOSES: Schizoaffective, Bipolar Type Nicotine Use Disorder Alcohol Use Disorder Cannabis Use Disorder ASSESSMENT: Patient refuses to speak with provider. Found walking in the hallway. Appears paranoid, reportedly stated to service planner that he is admitted as a mistake. Have attempted numerous times to meet with patient and he walks away from nd in the hallway. MANAGEMENT PLAN: Continue all medications, encourage patient to accept medications. Order to 2 PC, Transfer to [facility] as patient will not take medications that will stabilize him. Treatment over objection. TIME SPENT: 15 minutes Current Medications Current Medications Medications (Trade) Dose Ordered Sig/Tong Route PRN Reason Start Time Stop Time Status Last Admin Dose Admin Al Hydrox/Mg Hydrox/Simethicone (Mylanta) 30 ml Q4HP PRN PO HEARTBURN/INDIGESTION 07/18/20 18:25 Benztropine Mesylate (Cogentin) 1 mg BID PRN PO EPS 07/19/20 15:30 Haloperidol (Haldol) 5 mg Q6HP PRN PO AGITATION 07/19/20 15:30 Haloperidol (Haldol) 5 mg TID PO 07/19/20 16:00 Home Med (Med Rec Complete!) ASDIRECTED XX 07/17/20 21:05 07/17/20 21:08 DC Ibuprofen (Advil) 400 mg Q6HP PRN PO PAIN 07/18/20 18:25 Magnesium Hydroxide (Milk Of Magnesia) 30 ml DAILYPRN PRN PO CONSTIPATION 07/18/20 18:25 Nicotine (Nicoderm Cq 21mg) 1 patch DAILY TD 07/19/20 09:00 Olanzapine (ZyPREXA ZYDIS) 5 mg BID PRN PO ANXIETY/AGITATION 07/18/20 18:25 07/19/20 15:32 DC Trazodone HCl (Desyrel) 50 mg QHSP PRN PO INSOMNIA 07/18/20 18:25 Allergies Coded Allergies: No Known Allergies (Unverified , 08/21/17) ALEX AGUIRRE NP Aug 07, 2020 10:45
[2020-08-08] MEDS: NICOTINE 21MG/24HR 1 EA TRANSDERMAL TD SCH (08:38)
[2020-08-08] MEDS: haloperidoL 5 MG TAB PO SCH ×3 (08:38→20:22)
--- NOTE | 2020-08-08 15:51 | MHIPNPDOC ---
[facility] Progress Note Progress Note Date of Service: 08/08/20 HISTORY: Patient is a 30 -year-old Single, Unemployed , male, who was brought by by Police, as he was found walking in the middle of the road, making bizarre statements. On interview, patient is tangential and hyperverbal has a long story about his travels on foot and he postulates that a passerby felt that he was walking strangely on the road. Patient is quite manic in his speech with flights of ideas, loose associations and displaying poor insight and judgment. States that he is into natural substances and does not want medications. Patient has had one previous admission to this facility in August 2017 with a diagnosis of Schizoaffective, Bipolar. Patient is unkempt. wearing his hair very long, has fungal on his toenail, states that he was living with a friend for a few days but alludes to being homeless for a few months. PER ED REPORT: Pt was brought to the ED by police on a 9.41 after being found walking in the middle of the road. Pt was making bizarre statements as well. When asked why he was brought to the ED by police, pt stated "There were reports made by people driving by me because of the unorthodox way I was flowing while traveling by foot down the highway." Pt states that these people made false allegations against him, but he admits that he was walking down the middle of the road on [address]. Pt states that the police "were corrupting the purity of my moment." He states that he is gnosticism & "I cannot be corrupted by rules because I am clever, witty, & kind." Pt states that he has walked close to 100 miles over the past few days. Pt is disheveled, unkempt, & malodorous. He states that he has not showered in at least a week. Pt's speech is rambling, rapid, pressured, & mumbled. His TP is disorganized & his concentration is poor. He will often start to answer a question & will then stop & ask what the question was. Pt denies both SI & HI. He denies any hx of suicide attempts or self-harm. Pt denies both AH & VH. He appears internally preoccupied at times, looking at the wall & mumbling. Pt denies both depression & anxiety. He reports "excellent" energy levels. He states that his sleep & appetite are good. When asked if he has a mental health dx he states "there was a false judgment against me a few years ago & they said I was bipolar." Pt has a hx of schizoaffective d/o with one admission to [facility]. He does not currently have OP tx. Pt reports occasional MJ use. He states that he uses alcohol occasionally & then states "less than five times per month." Pt's tox screen was negative. Pt states he has been homeless for four or five months. He states that over the course of that time he has stayed at hotels, [place], & with friends. Pt states that sometimes he does not have a place to stay so he just walks. VITAL SIGNS: See below. CURRENT MEDICATIONS: See below. MENTAL STATUS EXAMINATION: Patient is a 30 -year-old Single, Unemployed , male, who was brought by by Police, as he was found walking in the middle of the road, making bizarre statements. General Appearance: hygiene appears to be fair and grooming is poor, appears stated age, hospital scrubs/clothing, healed scars, other (tattoo right forearm, fungal toes, long nails, long hair and mills) Build: thin Demeanor: uncooperative Eye Contact: avoidant Activity: average Behavior: cooperative but not taking medications Speech: normal volume, tangential, less loose associations Mood: euthymic Affect: flat Thought Process: tangential, loose, at times linear Thought Content (Delusions): less grandiose, less persecutory, less bizarre, denies SI, HI, AVH, delusions Thought Content (Other): ideas of reference (gnosticism references), grandiosity Thought Content (Aggressive): none reported Perception (Hallucinations): none reported Perception (Other): Cognition (Impairment of): attention/concentration Cognition(Intelligence Est.): average Oriented: Awake, Alert, Oriented times three Insight: poor Judgment: Poor Psychosis: religiously preoccupied DIAGNOSES: Schizoaffective, Bipolar Type Nicotine Use Disorder Alcohol Use Disorder Cannabis Use Disorder ASSESSMENT: Attempted to meet with patient. He walks away, has avoidant eye co ntact. He is howling in his room. He appears to be showering but his grooming is poor. Changes his clothes and bed linens daily, Per staff he refuses to speak with anyone and makes no eye contact. Continues to refuse medications, today he is refusing to wear and mask or socks on his feet. He is walking in the hallways and refuse to wear anything on his feet. Patient remain bizarre with odd beliefs. MANAGEMENT PLAN: Continue all medications, encourage patient to accept medications. Order to 2 [facility], Transfer to [facility] as patient will not take medications that will stabilize him. Treatment over objection. TIME SPENT: 15 minutes Vital Signs Vital Signs Date Time Temp Pulse Resp B/P (MAP) Pulse Ox O2 Delivery O2 Flow Rate FiO2 08/08/20 08:39 Room Air Current Medications Current Medications Medications (Trade) Dose Ordered Sig/Tong Route PRN Reason Start Time Stop Time Status Last Admin Dose Admin Al Hydrox/Mg Hydrox/Simethicone (Mylanta) 30 ml Q4HP PRN PO HEARTBURN/INDIGESTION 07/18/20 18:25 Benztropine Mesylate (Cogentin) 1 mg BID PRN PO EPS 07/19/20 15:30 Haloperidol (Haldol) 5 mg Q6HP PRN PO AGITATION 07/19/20 15:30 Haloperidol (Haldol) 5 mg TID PO 07/19/20 16:00 Home Med (Med Rec Complete!) ASDIRECTED XX 07/17/20 21:05 07/17/20 21:08 DC Ibuprofen (Advil) 400 mg Q6HP PRN PO PAIN 07/18/20 18:25 Magnesium Hydroxide (Milk Of Magnesia) 30 ml DAILYPRN PRN PO CONSTIPATION 07/18/20 18:25 Nicotine (Nicoderm Cq 21mg) 1 patch DAILY TD 07/19/20 09:00 Olanzapine (ZyPREXA ZYDIS) 5 mg BID PRN PO ANXIETY/AGITATION 07/18/20 18:25 07/19/20 15:32 DC Trazodone HCl (Desyrel) 50 mg QHSP PRN PO INSOMNIA 07/18/20 18:25 Allergies Coded Allergies: No Known Allergies (Unverified , 08/21/17) ALEX AGUIRRE NP Aug 08, 2020 12:17
[2020-08-09] MEDS: NICOTINE 21MG/24HR 1 EA TRANSDERMAL TD SCH (09:00)
[2020-08-09] MEDS: haloperidoL 5 MG TAB PO SCH ×3 (09:00→20:14)
--- NOTE | 2020-08-09 13:19 | MHIPNPDOC ---
[facility] Progress Note Progress Note Date of Service: 08/09/20 HISTORY: Patient is a 30 -year-old Single, Unemployed , male, who was brought by by Police, as he was found walking in the middle of the road, making bizarre statements. On interview, patient is tangential and hyperverbal has a long story about his travels on foot and he postulates that a passerby felt that he was walking strangely on the road. Patient is quite manic in his speech with flights of ideas, loose associations and displaying poor insight and judgment. States that he is into natural substances and does not want medications. Patient has had one previous admission to this facility in August 2017 with a diagnosis of Schizoaffective, Bipolar. Patient is unkempt. wearing his hair very long, has fungal on his toenail, states that he was living with a friend for a few days but alludes to being homeless for a few months. PER ED REPORT: Pt was brought to the ED by police on a 9.41 after being found walking in the middle of the road. Pt was making bizarre statements as well. When asked why he was brought to the ED by police, pt stated "There were reports made by people driving by me because of the unorthodox way I was flowing while traveling by foot down the highway." Pt states that these people made false allegations against him, but he admits that he was walking down the middle of the road on [address]. Pt states that the police "were corrupting the purity of my moment." He states that he is druze & "I cannot be corrupted by rules because I am clever, witty, & kind." Pt states that he has walked close to 100 miles over the past few days. Pt is disheveled, unkempt, & malodorous. He states that he has not showered in at least a week. Pt's speech is rambling, rapid, pressured, & mumbled. His TP is disorganized & his concentration is poor. He will often start to answer a question & will then stop & ask what the question was. Pt denies both SI & HI. He denies any hx of suicide attempts or self-harm. Pt denies both AH & VH. He appears internally preoccupied at times, looking at the wall & mumbling. Pt denies both depression & anxiety. He reports "excellent" energy levels. He states that his sleep & appetite are good. When asked if he has a mental health dx he states "there was a false judgment against me a few years ago & they said I was bipolar." Pt has a hx of schizoaffective d/o with one admission [facility]. He does not currently have OP tx. Pt reports occasional MJ use. He states that he uses alcohol occasionally & then states "less than five times per month." Pt's tox screen was negative. Pt states he has been homeless for four or five months. He states that over the course of that time he has stayed at hotels, [place], & with friends. Pt states that sometimes he does not have a place to stay so he just walks. VITAL SIGNS: See below. CURRENT MEDICATIONS: See below. MENTAL STATUS EXAMINATION: Patient is a 30 -year-old Single, Unemployed , male, who was brought by by Police, as he was found walking in the middle of the road, making bizarre statements. General Appearance: hygiene appears to be fair and grooming is poor, appears stated age, hospital scrubs/clothing, healed scars, other (tattoo right forearm, fungal toes, long nails, long hair and mills) Build: thin Demeanor: uncooperative Eye Contact: avoidant Activity: average Behavior: cooperative but not taking medications Speech: normal volume, tangential, less loose associations Mood: euthymic Affect: flat Thought Process: tangential, loose, at times linear Thought Content (Delusions): less grandiose, less persecutory, less bizarre, denies SI, HI, AVH, delusions Thought Content (Other): ideas of reference (druze references), grandiosity Thought Content (Aggressive): none reported Perception (Hallucinations): none reported Perception (Other): Cognition (Impairment of): attention/concentration Cognition(Intelligence Est.): average Oriented: Awake, Alert, Oriented times three Insight: poor Judgment: Poor Psychosis: religiously preoccupied DIAGNOSES: Schizoaffective, Bipolar Type Nicotine Use Disorder Alcohol Use Disorder Cannabis Use Disorder ASSESSMENT: Patient found in the hallway, this provider attempts to make eye co ntact and patient diverts his eyes away. When I ask to speak with him, he walks away and says nothing. I have attempted several times while he is walking to speak with him, he moves away and goes in the opposite direction. According to staff he is refusing to speak with them, he responds with minimal responses or states that he does not want to speak to staff because we're "not of this world, he is of high calling." He remains delusional, grandiose and refuses to take medications. To review, patient was encouraged to go to court for retention. He refused because I believe that he is extremely paranoid. We are awaiting court trial as we are pursing treatment over objection. If the health and safety coordinator rules in favor of the hospital, we hope to transfer to [facility]. Patient is not appropriate for discharge as he shows that while hospitalized he has poor insight and poor judgment. MANAGEMENT PLAN: Continue all medications, encourage patient to accept medications. Order to 2 [facility], Transfer to [facility] as patient will not take medications that will stabilize him. Treatment over objection. TIME SPENT: 15 minutes Vital Signs Vital Signs Date Time Temp Pulse Resp B/P (MAP) Pulse Ox O2 Delivery O2 Flow Rate FiO2 08/09/20 08:39 Room Air Current Medications Current Medications Medications (Trade) Dose Ordered Sig/Tong Route PRN Reason Start Time Stop Time Status Last Admin Dose Admin Al Hydrox/Mg Hydrox/Simethicone (Mylanta) 30 ml Q4HP PRN PO HEARTBURN/INDIGESTION 07/18/20 18:25 Benztropine Mesylate (Cogentin) 1 mg BID PRN PO EPS 07/19/20 15:30 Haloperidol (Haldol) 5 mg Q6HP PRN PO AGITATION 07/19/20 15:30 Haloperidol (Haldol) 5 mg TID PO 07/19/20 16:00 Home Med (Med Rec Complete!) ASDIRECTED XX 07/17/20 21:05 07/17/20 21:08 DC Ibuprofen (Advil) 400 mg Q6HP PRN PO PAIN 07/18/20 18:25 Magnesium Hydroxide (Milk Of Magnesia) 30 ml DAILYPRN PRN PO CONSTIPATION 07/18/20 18:25 Nicotine (Nicoderm Cq 21mg) 1 patch DAILY TD 07/19/20 09:00 Olanzapine (ZyPREXA ZYDIS) 5 mg BID PRN PO ANXIETY/AGITATION 07/18/20 18:25 07/19/20 15:32 DC Trazodone HCl (Desyrel) 50 mg QHSP PRN PO INSOMNIA 07/18/20 18:25 Allergies Coded Allergies: No Known Allergies (Unverified , 08/21/17) ALEX AGUIRRE NP Aug 09, 2020 09:47
[2020-08-09 19:04] VITALS: BP 152/110
[2020-08-10] MEDS: haloperidoL 5 MG TAB PO SCH ×3 (08:44→21:00)
[2020-08-10] MEDS: NICOTINE 21MG/24HR 1 EA TRANSDERMAL TD SCH (08:45)
--- NOTE | 2020-08-10 11:28 | MHIPNPDOC ---
[facility] Progress Note Progress Note Date of Service: 08/10/20 HISTORY: Patient is a 30 -year-old Single, Unemployed , male, who was brought by by Police, as he was found walking in the middle of the road, making bizarre statements. On interview, patient is tangential and hyperverbal has a long story about his travels on foot and he postulates that a passerby felt that he was walking strangely on the road. Patient is quite manic in his speech with flights of ideas, loose associations and displaying poor insight and judgment. States that he is into natural substances and does not want medications. Patient has had one previous admission to this facility in August 2017 with a diagnosis of Schizoaffective, Bipolar. Patient is unkempt. wearing his hair very long, has fungal on his toenail, states that he was living with a friend for a few days but alludes to being homeless for a few months. PER ED REPORT: Pt was brought to the ED by police on a 9.41 after being found walking in the middle of the road. Pt was making bizarre statements as well. When asked why he was brought to the ED by police, pt stated "There were reports made by people driving by me because of the unorthodox way I was flowing while traveling by foot down the highway." Pt states that these people made false allegations against him, but he admits that he was walking down the middle [place] [address]. Pt states that the police "were corrupting the purity of my moment." He states that he is hoahaoism & "I cannot be corrupted by rules because I am clever, witty, & kind." Pt states that he has walked close to 100 miles over the past few days. Pt is disheveled, unkempt, & malodorous. He states that he has not showered in at least a week. Pt's speech is rambling, rapid, pressured, & mumbled. His TP is disorganized & his concentration is poor. He will often start to answer a question & will then stop & ask what the question was. Pt denies both SI & HI. He denies any hx of suicide attempts or self-harm. Pt denies both AH & VH. He appears internally preoccupied at times, looking at the wall & mumbling. Pt denies both depression & anxiety. He reports "excellent" energy levels. He states that his sleep & appetite are good. When asked if he has a mental health dx he states "there was a false judgment against me a few years ago & they said I was bipolar." Pt has a hx of schizoaffective d/o with one admission to [facility]. He does not currently have OP tx. Pt reports occasional MJ use. He states that he uses alcohol occasionally & then states "less than five times per month." Pt's tox screen was negative. Pt states he has been homeless for four or five months. He states that over the course of that time he has stayed at hotels, [place], & with friends. Pt states that sometimes he does not have a place to stay so he just walks. VITAL SIGNS: See below. CURRENT MEDICATIONS: See below. MENTAL STATUS EXAMINATION: Patient is a 30 -year-old Single, Unemployed , male, who was brought by by Police, as he was found walking in the middle of the road, making bizarre statements. General Appearance: hygiene appears to be fair and grooming is poor, appears stated age, hospital scrubs/clothing, healed scars, other (tattoo right forearm, fungal toes, long nails, long hair and mills) Build: thin Demeanor: uncooperative Eye Contact: avoidant Activity: average Behavior: cooperative but not taking medications Speech: normal volume, tangential, less loose associations Mood: euthymic Affect: flat, at times irritable Thought Process: tangential, loose, at times linear Thought Content (Delusions): less grandiose, less persecutory, less bizarre, denies SI, HI, delusions Thought Content (Other): ideas of reference (hoahaoism references), grandiosity, appears to be responding to internal stimuli Thought Content (Aggressive): none reported Perception (Hallucinations): none reported Perception (Other): Cognition (Impairment of): attention/concentration Cognition(Intelligence Est.): average Oriented: Awake, Alert, Oriented times three Insight: poor Judgment: Poor Psychosis: religiously preoccupied DIAGNOSES: Schizoaffective, Bipolar Type Nicotine Use Disorder Alcohol Use Disorder Cannabis Use Disorder ASSESSMENT: Patient is refusing to speak with staff. Remains religiously preoccupied. "I am God. Everybody can go to hell" Pt refuses to engage in 1:1, will not speak provider. He will not make eye contact and walks away. He continues to refuse medications. He appears to be responding to internal stimuli. He is observed to be laughing inappropriately and talking to himself. He is walking rapidly on the unit and has a hypomanic movement in his gait. MANAGEMENT PLAN: Continue all medications, encourage patient to accept medications. Order to 2 PC, Transfer to [facility] as patient will not take medications that will stabilize him. Treatment over objection. TIME SPENT: 15 minutes Vital Signs Vital Signs Date Time Temp Pulse Resp B/P (MAP) Pulse Ox O2 Delivery O2 Flow Rate FiO2 08/09/20 19:04 20 152/110 (124) 08/09/20 08:39 Room Air Current Medications Current Medications Medications (Trade) Dose Ordered Sig/Tong Route PRN Reason Start Time Stop Time Status Last Admin Dose Admin Al Hydrox/Mg Hydrox/Simethicone (Mylanta) 30 ml Q4HP PRN PO HEARTBURN/INDIGESTION 07/18/20 18:25 Benztropine Mesylate (Cogentin) 1 mg BID PRN PO EPS 07/19/20 15:30 Haloperidol (Haldol) 5 mg Q6HP PRN PO AGITATION 07/19/20 15:30 Haloperidol (Haldol) 5 mg TID PO 07/19/20 16:00 Home Med (Med Rec Complete!) ASDIRECTED XX 07/17/20 21:05 07/17/20 21:08 DC Ibuprofen (Advil) 400 mg Q6HP PRN PO PAIN 07/18/20 18:25 Magnesium Hydroxide (Milk Of Magnesia) 30 ml DAILYPRN PRN PO CONSTIPATION 07/18/20 18:25 Nicotine (Nicoderm Cq 21mg) 1 patch DAILY TD 07/19/20 09:00 Olanzapine (ZyPREXA ZYDIS) 5 mg BID PRN PO ANXIETY/AGITATION 07/18/20 18:25 07/19/20 15:32 DC Trazodone HCl (Desyrel) 50 mg QHSP PRN PO INSOMNIA 07/18/20 18:25 Allergies Coded Allergies: No Known Allergies (Unverified , 08/21/17) ALEX AGUIRRE IS CONSULTANT Aug 10, 2020 11:28
[2020-08-11] MEDS: haloperidoL 5 MG TAB PO SCH ×3 (08:50→20:57)
[2020-08-11] MEDS: NICOTINE 21MG/24HR 1 EA TRANSDERMAL TD SCH (08:50)
[2020-08-12] MEDS: haloperidoL 5 MG TAB PO SCH ×3 (08:59→21:00)
[2020-08-12] MEDS: NICOTINE 21MG/24HR 1 EA TRANSDERMAL TD SCH (08:59)
[2020-08-13] MEDS: haloperidoL 5 MG TAB PO SCH ×3 (08:02→20:49)
[2020-08-13] MEDS: NICOTINE 21MG/24HR 1 EA TRANSDERMAL TD SCH (08:02)
--- NOTE | 2020-08-13 13:34 | MHIPNPDOC ---
[facility] Progress Note Progress Note Date of Service: 08/13/20 HISTORY: Patient is a 30 -year-old Single, Unemployed , male, who was brought by by Police, as he was found walking in the middle of the road, making bizarre statements. On interview, patient is tangential and hyperverbal has a long story about his travels on foot and he postulates that a passerby felt that he was walking strangely on the road. Patient is quite manic in his speech with flights of ideas, loose associations and displaying poor insight and judgment. States that he is into natural substances and does not want medications. Patient has had one previous admission to this facility in August 2017 with a diagnosis of Schizoaffective, Bipolar. Patient is unkempt. wearing his hair very long, has fungal on his toenail, states that he was living with a friend for a few days but alludes to being homeless for a few months. PER ED REPORT: Pt was brought to the ED by police on a 9.41 after being found walking in the middle of the road. Pt was making bizarre statements as well. When asked why he was brought to the ED by police, pt stated "There were reports made by people driving by me because of the unorthodox way I was flowing while traveling by foot down the highway." Pt states that these people made false allegations against him, but he admits that he was walking down the middle of the road on [address]. Pt states that the police "were corrupting the purity of my moment." He states that he is mosque & "I cannot be corrupted by rules because I am clever, witty, & kind." Pt states that he has walked close to 100 miles over the past few days. Pt is disheveled, unkempt, & malodorous. He states that he has not showered in at least a week. Pt's speech is rambling, rapid, pressured, & mumbled. His TP is disorganized & his concentration is poor. He will often start to answer a question & will then stop & ask what the question was. Pt denies both SI & HI. He denies any hx of suicide attempts or self-harm. Pt denies both AH & VH. He appears internally preoccupied at times, looking at the wall & mumbling. Pt denies both depression & anxiety. He reports "excellent" energy levels. He states that his sleep & appetite are good. When asked if he has a mental health dx he states "there was a false judgment against me a few years ago & they said I was bipolar." Pt has a hx of schizoaffective d/o with one admission to [facility]. He does not currently have OP tx. Pt reports occasional MJ use. He states that he uses alcohol occasionally & then states "less than five times per month." Pt's tox screen was negative. Pt states he has been homeless for four or five months. He states that over the course of that time he has stayed at hotels, [place], & with friends. Pt states that sometimes he does not have a place to stay so he just walks. VITAL SIGNS: See below. CURRENT MEDICATIONS: See below. MENTAL STATUS EXAMINATION: Patient is a 30 -year-old Single, Unemployed , male, who was brought by by Police, as he was found walking in the middle of the road, making bizarre statements. General Appearance: hygiene appears to be fair and grooming is poor, appears stated age, hospital scrubs/clothing, healed scars, other (tattoo right forearm, fungal toes, long nails, long hair and mills) Build: thin Demeanor: uncooperative Eye Contact: avoidant Activity: average Behavior: cooperative but not taking medications Speech: rapid, overproduction of vocabulary, tangential, less loose associations Mood: euthymic Affect: flat, at times irritable Thought Process: tangential, loose, at times linear Thought Content (Delusions): less grandiose, less persecutory, less bizarre, denies SI, HI, delusions Thought Content (Other): ideas of reference (mosque references), grandiosity, appears to be responding to internal stimuli Thought Content (Aggressive): none reported Perception (Hallucinations): none reported Perception (Other): Cognition (Impairment of): attention/concentration Cognition(Intelligence Est.): average Oriented: Awake, Alert, Oriented times three Insight: poor Judgment: Poor Psychosis: religiously preoccupied DIAGNOSES: Schizoaffective, Bipolar Type Nicotine Use Disorder Alcohol Use Disorder Cannabis Use Disorder ASSESSMENT: Patient reports that his destination is living with a friend. He was more conversant today reports that he was living in a homeless usp in [place]. States that he was allowed to stay from 8 PM to 6 AM and DSS helped him with snap benefits and that he had a fair amount of money for a hotel room. He states that he was with his friend who is an acquaintance but he states "she is more of a friend then an acquaintance" and that he would like to live with her she [place] where he has access to communication being on line. When I attempted to tell the patient that my treatment plan is still to pursue t reatment over objection patient left the room and stated that he would like to be discharged and that he feels that he meets criteria MANAGEMENT PLAN: Continue all medications, encourage patient to accept medications. Order to 2 PC, Transfer to [facility] as patient will not take medications that will stabilize him. Treatment over objection. TIME SPENT: 15 minutes Vital Signs Vital Signs Date Time Temp Pulse Resp B/P (MAP) Pulse Ox O2 Delivery O2 Flow Rate FiO2 08/09/20 19:04 20 152/110 (124) 08/09/20 08:39 Room Air Current Medications Current Medications Medications (Trade) Dose Ordered Sig/Tong Route PRN Reason Start Time Stop Time Status Last Admin Dose Admin Al Hydrox/Mg Hydrox/Simethicone (Mylanta) 30 ml Q4HP PRN PO HEARTBURN/INDIGESTION 07/18/20 18:25 Benztropine Mesylate (Cogentin) 1 mg BID PRN PO EPS 07/19/20 15:30 Haloperidol (Haldol) 5 mg Q6HP PRN PO AGITATION 07/19/20 15:30 Haloperidol (Haldol) 5 mg TID PO 07/19/20 16:00 Home Med (Med Rec Complete!) ASDIRECTED XX 07/17/20 21:05 07/17/20 21:08 DC Ibuprofen (Advil) 400 mg Q6HP PRN PO PAIN 07/18/20 18:25 Magnesium Hydroxide (Milk Of Magnesia) 30 ml DAILYPRN PRN PO CONSTIPATION 07/18/20 18:25 Nicotine (Nicoderm Cq 21mg) 1 patch DAILY TD 07/19/20 09:00 Olanzapine (ZyPREXA ZYDIS) 5 mg BID PRN PO ANXIETY/AGITATION 07/18/20 18:25 07/19/20 15:32 DC Trazodone HCl (Desyrel) 50 mg QHSP PRN PO INSOMNIA 07/18/20 18:25 Allergies Coded Allergies: No Known Allergies (Unverified , 08/21/17) ALEX AGUIRRE NP Aug 13, 2020 13:34
[2020-08-14] MEDS: NICOTINE 21MG/24HR 1 EA TRANSDERMAL TD SCH (08:28)
[2020-08-14] MEDS: haloperidoL 5 MG TAB PO SCH ×3 (08:28→20:34)
--- NOTE | 2020-08-14 13:47 | MHIPNPDOC ---
[facility] Progress Note Progress Note Date of Service: 08/14/20 HISTORY: Patient is a 30 -year-old Single, Unemployed , male, who was brought by by Police, as he was found walking in the middle of the road, making bizarre statements. On interview, patient is tangential and hyperverbal has a long story about his travels on foot and he postulates that a passerby felt that he was walking strangely on the road. Patient is quite manic in his speech with flights of ideas, loose associations and displaying poor insight and judgment. States that he is into natural substances and does not want medications. Patient has had one previous admission to this facility in August 2017 with a diagnosis of Schizoaffective, Bipolar. Patient is unkempt. wearing his hair very long, has fungal on his toenail, states that he was living with a friend for a few days but alludes to being homeless for a few months. PER ED REPORT: Pt was brought to the ED by police on a 9.41 after being found walking in the middle of the road. Pt was making bizarre statements as well. When asked why he was brought to the ED by police, pt stated "There were reports made by people driving by me because of the unorthodox way I was flowing while traveling by foot down the highway." Pt states that these people made false allegations against him, but he admits that he was walking down the middle of the road on [address]. Pt states that the police "were corrupting the purity of my moment." He states that he is orthodox & "I cannot be corrupted by rules because I am clever, witty, & kind." Pt states that he has walked close to 100 miles over the past few days. Pt is disheveled, unkempt, & malodorous. He states that he has not showered in at least a week. Pt's speech is rambling, rapid, pressured, & mumbled. His TP is disorganized & his concentration is poor. He will often start to answer a question & will then stop & ask what the question was. Pt denies both SI & HI. He denies any hx of suicide attempts or self-harm. Pt denies both AH & VH. He appears internally preoccupied at times, looking at the wall & mumbling. Pt denies both depression & anxiety. He reports "excellent" energy levels. He states that his sleep & appetite are good. When asked if he has a mental health dx he states "there was a false judgment against me a few years ago & they said I was bipolar." Pt has a hx of schizoaffective d/o with one admission to [facility]. He does not currently have OP tx. Pt reports occasional MJ use. He states that he uses alcohol occasionally & then states "less than five times per month." Pt's tox screen was negative. Pt states he has been homeless for four or five months. He states that over the course of that time he has stayed [place] hotels, [place], & with friends. Pt states that sometimes he does not have a place to stay so he just walks. VITAL SIGNS: See below. CURRENT MEDICATIONS: See below. MENTAL STATUS EXAMINATION: Patient is a 30 -year-old Single, Unemployed , male, who was brought by by Police, as he was found walking in the middle of the road, making bizarre statements. General Appearance: hygiene appears to be fair and grooming is poor, appears stated age, hospital scrubs/clothing, healed scars, other (tattoo right forearm, fungal toes, long nails, long hair and mills) Build: thin Demeanor: uncooperative Eye Contact: avoidant Activity: average Behavior: cooperative but not taking medications Speech: rapid, overproduction of vocabulary, tangential, less loose associations Mood: euthymic Affect: flat, at times irritable Thought Process: tangential, loose, at times linear Thought Content (Delusions): less grandiose, less persecutory, less bizarre, denies SI, HI, delusions Thought Content (Other): ideas of reference (orthodox references), grandiosity, appears to be responding to internal stimuli Thought Content (Aggressive): none reported Perception (Hallucinations): none reported Perception (Other): Cognition (Impairment of): attention/concentration Cognition(Intelligence Est.): average Oriented: Awake, Alert, Oriented times three Insight: poor Judgment: Poor Psychosis: religiously preoccupied DIAGNOSES: Schizoaffective, Bipolar Type Nicotine Use Disorder Alcohol Use Disorder Cannabis Use Disorder ASSESSMENT: Patient continues to have no change remains religiously preoccupied, poor compliance with medications. On interview patient presents with wet matted hair. He states that he showered and that he is aware of his matted hair. States that this is self-limited maintenance. He continues with his overproductive of vocabulary words and speech. He attempts to speak over me and does not allow me to ask questions. He states that there have been faults statements against him "that those the question should not have any greater part of qualifications. We may be considered inappropriate treatment of himself is likely to result in significant financial distress" to me as the provider. Patient continues to have poor insight and poor judgment. He continues to show inability to to care for himself on day-to-day living as he has poor insight and poor judgment. Much of his speech is tangential and circumstantial he continues have a disorganized thought process is evident with his tangentiality and overproduction of his speech MANAGEMENT PLAN: Continue all medications, encourage patient to accept medications. Order to 2 PC, Transfer to [facility] as patient will not take medications that will stabilize him. Treatment over objection. TIME SPENT: 15 minutes Vital Signs Vital Signs Date Time Temp Pulse Resp B/P (MAP) Pulse Ox O2 Delivery O2 Flow Rate FiO2 08/14/20 08:31 Room Air 08/09/20 19:04 20 152/110 (124) Current Medications Current Medications Medications (Trade) Dose Ordered Sig/Tong Route PRN Reason Start Time Stop Time Status Last Admin Dose Admin Al Hydrox/Mg Hydrox/Simethicone (Mylanta) 30 ml Q4HP PRN PO HEARTBURN/INDIGESTION 07/18/20 18:25 Benztropine Mesylate (Cogentin) 1 mg BID PRN PO EPS 07/19/20 15:30 Haloperidol (Haldol) 5 mg Q6HP PRN PO AGITATION 07/19/20 15:30 Haloperidol (Haldol) 5 mg TID PO 07/19/20 16:00 Home Med (Med Rec Complete!) ASDIRECTED XX 07/17/20 21:05 07/17/20 21:08 DC Ibuprofen (Advil) 400 mg Q6HP PRN PO PAIN 07/18/20 18:25 Magnesium Hydroxide (Milk Of Magnesia) 30 ml DAILYPRN PRN PO CONSTIPATION 07/18/20 18:25 Nicotine (Nicoderm Cq 21mg) 1 patch DAILY TD 07/19/20 09:00 Olanzapine (ZyPREXA ZYDIS) 5 mg BID PRN PO ANXIETY/AGITATION 07/18/20 18:25 07/19/20 15:32 DC Trazodone HCl (Desyrel) 50 mg QHSP PRN PO INSOMNIA 07/18/20 18:25 Allergies Coded Allergies: No Known Allergies (Unverified , 08/21/17) ALEX AGUIRRE NP Aug 14, 2020 13:47
[2020-08-15] MEDS: haloperidoL 5 MG TAB PO SCH ×3 (09:00→20:27)
[2020-08-15] MEDS: NICOTINE 21MG/24HR 1 EA TRANSDERMAL TD SCH (09:00)
--- NOTE | 2020-08-15 13:09 | MHIPNPDOC ---
[facility] Progress Note Progress Note Date of Service: 08/15/20 HISTORY: Patient is a 30 -year-old Single, Unemployed , male, who was brought by by Police, as he was found walking in the middle of the road, making bizarre statements. On interview, patient is tangential and hyperverbal has a long story about his travels on foot and he postulates that a passerby felt that he was walking strangely on the road. Patient is quite manic in his speech with flights of ideas, loose associations and displaying poor insight and judgment. States that he is into natural substances and does not want medications. Patient has had one previous admission to this facility in August 2017 with a diagnosis of Schizoaffective, Bipolar. Patient is unkempt. wearing his hair very long, has fungal on his toenail, states that he was living with a friend for a few days but alludes to being homeless for a few months. PER ED REPORT: Pt was brought to the ED by police on a 9.41 after being found walking in the middle of the road. Pt was making bizarre statements as well. When asked why he was brought to the ED by police, pt stated "There were reports made by people driving by me because of the unorthodox way I was flowing while traveling by foot down the highway." Pt states that these people made false allegations against him, but he admits that he was walking down the middle [place] [address]. Pt states that the police "were corrupting the purity of my moment." He states that he is presybeterian & "I cannot be corrupted by rules because I am clever, witty, & kind." Pt states that he has walked close to 100 miles over the past few days. Pt is disheveled, unkempt, & malodorous. He states that he has not showered in at least a week. Pt's speech is rambling, rapid, pressured, & mumbled. His TP is disorganized & his concentration is poor. He will often start to answer a question & will then stop & ask what the question was. Pt denies both SI & HI. He denies any hx of suicide attempts or self-harm. Pt denies both AH & VH. He appears internally preoccupied at times, looking at the wall & mumbling. Pt denies both depression & anxiety. He reports "excellent" energy levels. He states that his sleep & appetite are good. When asked if he has a mental health dx he states "there was a false judgment against me a few years ago & they said I was bipolar." Pt has a hx of schizoaffective d/o with one admission to [facility]. He does not currently have OP tx. Pt reports occasional MJ use. He states that he uses alcohol occasionally & then states "less than five times per month." Pt's tox screen was negative. Pt states he has been homeless for four or five months. He states that over the course of that time he has stayed at hotels, [place], & with friends. Pt states that sometimes he does not have a place to stay so he just walks. VITAL SIGNS: See below. CURRENT MEDICATIONS: See below. MENTAL STATUS EXAMINATION: Patient is a 30 -year-old Single, Unemployed , male, who was brought by by Police, as he was found walking in the middle of the road, making bizarre statements. General Appearance: hygiene appears to be fair and grooming is poor, appears stated age, hospital scrubs/clothing, healed scars, other (tattoo right forearm, fungal toes, matted hair, long nails, long hair and mills) Build: thin Demeanor: cooperative Eye Contact: avoidant Activity: average Behavior: cooperative but not taking medications Speech: rapid, overproduction of vocabulary, tangential, less loose associations Mood: euthymic Affect: flat, at times irritable Thought Process: tangential, hyperverbal at times linear Thought Content (Delusions): less grandiose, less persecutory, less bizarre, denies SI, HI, delusions Thought Content (Other): ideas of reference (presybeterian references), paranoid Thought Content (Aggressive): moderately aggressive Perception (Hallucinations): none reported Perception (Other): Cognition (Impairment of): attention/concentration Cognition(Intelligence Est.): average Oriented: Awake, Alert, Oriented times three Insight: poor Judgment: Poor Psychosis: religiously preoccupied DIAGNOSES: Schizoaffective, Bipolar Type Nicotine Use Disorder Alcohol Use Disorder Cannabis Use Disorder ASSESSMENT: Patient's presentation has not changed. He continues to be paranoid, delusional and has over-productive of his speech. Patient's hair is quite matted and he continues to be very religiously preoccupied and paranoid. States that he will not use any products for his hair that is unhealthy and inorganic. States, "I am cleaning up black particles and filth on this floor. It is beyond me how this hospital can keep me here for this extended length for the time in that I have honor, shawn and marvin and integrity and no reason for you to undermine me and you all need to be uniform in accordance with the rules, process and be in accordance with the policies." He remains sophomanic in his speech, tangential and circumstantial. He avoids any eye contact, observed to b e suspicious and easily agitated when I reinforce that I do not feel he is stable and cannot navigate on his own (no finances, no half-way, no supports), he does not present the treatment team with any safe discharge plans that would be appropriate. MANAGEMENT PLAN: Continue all medications, encourage patient to accept medications. Order to 2 PC, Transfer to [facility] as patient will not take medications that will stabilize him. Treatment over objection. TIME SPENT: 15 minutes Vital Signs Vital Signs Date Time Temp Pulse Resp B/P (MAP) Pulse Ox O2 Delivery O2 Flow Rate FiO2 08/15/20 07:56 Room Air 08/09/20 19:04 20 152/110 (124) Current Medications Current Medications Medications (Trade) Dose Ordered Sig/Tong Route PRN Reason Start Time Stop Time Status Last Admin Dose Admin Al Hydrox/Mg Hydrox/Simethicone (Mylanta) 30 ml Q4HP PRN PO HEARTBURN/INDIGESTION 07/18/20 18:25 Benztropine Mesylate (Cogentin) 1 mg BID PRN PO EPS 07/19/20 15:30 Haloperidol (Haldol) 5 mg Q6HP PRN PO AGITATION 07/19/20 15:30 Haloperidol (Haldol) 5 mg TID PO 07/19/20 16:00 Home Med (Med Rec Complete!) ASDIRECTED XX 07/17/20 21:05 07/17/20 21:08 DC Ibuprofen (Advil) 400 mg Q6HP PRN PO PAIN 07/18/20 18:25 Magnesium Hydroxide (Milk Of Magnesia) 30 ml DAILYPRN PRN PO CONSTIPATION 07/18/20 18:25 Nicotine (Nicoderm Cq 21mg) 1 patch DAILY TD 07/19/20 09:00 Olanzapine (ZyPREXA ZYDIS) 5 mg BID PRN PO ANXIETY/AGITATION 07/18/20 18:25 07/19/20 15:32 DC Trazodone HCl (Desyrel) 50 mg QHSP PRN PO INSOMNIA 07/18/20 18:25 Allergies Coded Allergies: No Known Allergies (Unverified , 08/21/17) ALEX AGUIRRE NP Aug 15, 2020 12:44
[2020-08-16] MEDS: NICOTINE 21MG/24HR 1 EA TRANSDERMAL TD SCH (09:00)
[2020-08-16] MEDS: haloperidoL 5 MG TAB PO SCH ×3 (09:00→20:08)
--- NOTE | 2020-08-16 12:02 | MHIPNPDOC ---
[facility] Progress Note Progress Note Date of Service: 08/16/20 HISTORY: Patient is a 30 -year-old Single, Unemployed , male, who was brought by by Police, as he was found walking in the middle of the road, making bizarre statements. On interview, patient is tangential and hyperverbal has a long story about his travels on foot and he postulates that a passerby felt that he was walking strangely on the road. Patient is quite manic in his speech with flights of ideas, loose associations and displaying poor insight and judgment. States that he is into natural substances and does not want medications. Patient has had one previous admission to this facility in August 2017 with a diagnosis of Schizoaffective, Bipolar. Patient is unkempt. wearing his hair very long, has fungal on his toenail, states that he was living with a friend f or a few days but alludes to being homeless for a few months. PER ED REPORT: Pt was brought to the ED by police on a 9.41 after being found walking in the middle of the road. Pt was making bizarre statements as well. When asked why he was brought to the ED by police, pt stated "There were reports made by people driving by me because of the unorthodox way I was flowing while traveling by foot down the highway." Pt states that these people made false allegations against him, but he admits that he was walking down the middle of the road on [address]. Pt states that the police "were corrupting the purity of my moment." He states that he is baptism & "I cannot be corrupted by rules because I am clever, witty, & kind." Pt states that he has walked close to 100 miles over the past few days. Pt is disheveled, unkempt, & malodorous. He states that he has not showered in at least a week. Pt's speech is rambling, rapid, pressured, & mumbled. His TP is disorganized & his concentration is poor. He will often start to answer a question & will then stop & ask what the question was. Pt denies both SI & HI. He denies any hx of suicide attempts or self-harm. Pt denies both AH & VH. He appears internally preoccupied at times, looking at the wall & mumbling. Pt denies both depression & anxiety. He reports "excellent" energy levels. He states that his sleep & appetite are good. When asked if he has a mental health dx he states "there was a false judgment against me a few years ago & they said I was bipolar." Pt has a hx of schizoaffective d/o with one admission to [facility]. He does not currently have OP tx. Pt reports occasional MJ use. He states that he uses alcohol occasionally & then states "less than five times per month." Pt's tox screen was negative. Pt states he has been homeless for four or five months. He states that over the course of that time he has stayed at hotels, [place], & with friends. Pt states that sometimes he does not have a place to stay so he just walks. VITAL SIGNS: See below. CURRENT MEDICATIONS: See below. MENTAL STATUS EXAMINATION: Patient is a 30 -year-old Single, Unemployed , male, who was brought by by Police, as he was found walking in the middle of the road, making bizarre statements. General Appearance: hygiene appears to be fair and grooming is poor, appears stated age, hospital scrubs/clothing, healed scars, other (tattoo right forearm, fungal toes, matted hair, long nails, long hair and mills) Build: thin Demeanor: cooperative Eye Contact: avoidant Activity: average Behavior: cooperative but not taking medications Speech: rapid, overproduction of vocabulary, tangential, less loose associations Mood: euthymic Affect: flat, at times irritable Thought Process: tangential, overproduction of speech, disorganized Thought Content (Delusions): less grandiose, more persecutory, less bizarre, denies SI, HI, delusions Thought Content (Other): ideas of reference (baptism references), paranoid Thought Content (Aggressive): moderately aggressive Perception (Hallucinations): none reported Perception (Other): Cognition (Impairment of): attention/concentration Cognition(Intelligence Est.): average Oriented: Awake, Alert, Oriented times three Insight: poor Judgment: Poor Psychosis: religiously preoccupied DIAGNOSES: Schizoaffective, Bipolar Type Nicotine Use Disorder Alcohol Use Disorder Cannabis Use Disorder ASSESSMENT: Patient is refusing to speak with provider, found walking in the hallways ambulating rapidly. Refusing to make eye contact, refusing to engage with staff, refusing medications. Patient has remained religiously preoccupied, delusional and is observed with internal stimuli. Eyes looking off to the side as if he is hearing voices. Patient has not clear or safe discharge planning. He has no financial means to support himself in the community and remains steadfast that he does not want medications and only want organic treatment, this includes not using shampoo or conditioner in his hair, which is not matted into one large clump in the back of his head. He demonstrate poor insight and poor judgment. During Administrative Hearing patient was again, very tangential, had overproductive speech, sophomanic with words, he over-talked over [facility] staff and had difficulty answering questions and maintained his extreme circumstantiality. He states that his plan was to go stay with his friend Micaela Montoya) which is the first time he mentioned a last name. He still does not have an address or phone number for the person and states that she once offered a place for him to stay. He believes that his admission has been against his will. Patient jesus ins with poor planning, no finances, no ability to obtain a job due to his disorganized thought processes. It is still my belief that discharging the patient to unknown places, a place/friend that may not be accepting him as a guest and no other ability to care for himself on a day to day living aspect is poor and unsafe. MANAGEMENT PLAN: Continue all medications, encourage patient to accept medications. Order to 2 PC, Transfer to [facility] as patient will not take medications that will stabilize him. Treatment over objection. TIME SPENT: 15 minutes Vital Signs Vital Signs Date Time Temp Pulse Resp B/P (MAP) Pulse Ox O2 Delivery O2 Flow Rate FiO2 08/15/20 07:56 Room Air Current Medications Current Medications Medications (Trade) Dose Ordered Sig/Tong Route PRN Reason Start Time Stop Time Status Last Admin Dose Admin Al Hydrox/Mg Hydrox/Simethicone (Mylanta) 30 ml Q4HP PRN PO HEARTBURN/INDIGESTION 07/18/20 18:25 Benztropine Mesylate (Cogentin) 1 mg BID PRN PO EPS 07/19/20 15:30 Haloperidol (Haldol) 5 mg Q6HP PRN PO AGITATION 07/19/20 15:30 Haloperidol (Haldol) 5 mg TID PO 07/19/20 16:00 Home Med (Med Rec Complete!) ASDIRECTED XX 07/17/20 21:05 07/17/20 21:08 DC Ibuprofen (Advil) 400 mg Q6HP PRN PO PAIN 07/18/20 18:25 Magnesium Hydroxide (Milk Of Magnesia) 30 ml DAILYPRN PRN PO CONSTIPATION 07/18/20 18:25 Nicotine (Nicoderm Cq 21mg) 1 patch DAILY TD 07/19/20 09:00 Olanzapine (ZyPREXA ZYDIS) 5 mg BID PRN PO ANXIETY/AGITATION 07/18/20 18:25 07/19/20 15:32 DC Trazodone HCl (Desyrel) 50 mg QHSP PRN PO INSOMNIA 07/18/20 18:25 Allergies Coded Allergies: No Known Allergies (Unverified , 08/21/17) ALEX AGUIRRE NP Aug 16, 2020 12:02
--- NOTE | 2020-08-16 13:55 | TOB ---
[facility] TREATMENT OVER OBJECTION DATE: 08/10/2020 The patient was seen for evaluation for treatment over objection on 08/10/2020. The assessment was made via telehealth in the presence of a metals sales representative from the [facility] [employer] [facility], who is also telehealth. I was at the clinic. The patient was at the hospital, and he was seen in the presence of staff. SECTION I - CLINICAL ASSESSMENT: The patient is 30 years old. Has a history of several hospitalizations, here and at [facility]. He had been living in [place]. Moved back to this area recently. It is possible has had hospitalizations when away from here. Staff is not aware of any. He was brought to the emergency room after he was seen walking in the highway, and police were informed. When he presented he was thought to have symptoms related to maritza. He was deluded, religiously preoccupied, paranoid of electrical appliances. He has been offered medicines for treatment while hospitalized, and he has refused to take them. The medicines were most likely to help to stabilize his moods and delusional thoughts. He has apparently for the last several years been nonadherent to recommendations made by clinicians, including after being discharged from hospital stays. According to the assessment made by other staff, he is banned from several places, including schools and public places. Has a history of violating rules, breaking and entering into homes, schools, and businesses. When first seen by staff, he exhibited behaviors indicative of maritza with rapid, pressured speech, delusional thoughts, and very poor Insight and judgment. It should be noted, when I attempted to interview him, it was not possible to do so. It was very difficult directing him, as he spoke rapidly, overly pressured speech, tangential, and the speech was littered with statements pertaining to his thoughts, which were of a grandiose nature but quite often difficult to follow. DIAGNOSIS: Schizoaffective disorder, bipolar type. SECTION II - PROPOSED TREATMENT: 1. Treatment is being recommended by the treating physician, as the patient has refused oral medications. What is proposed by the treating physician is, to begin with, short-acting intramuscular medications, Haldol 5 mg to 20 mg daily, or Prolixin 5 mg to 20 mg daily, or Zyprexa 5 mg to 30 mg daily, or Thorazine 5 mg to 200 mg daily. The physician is also recommending then introducing long-acting intramuscular medications, like Haldol Decanoate 50-100 mg every 2 weeks, or Prolixin Decanoate 25-100 mg every 2 weeks, or Risperdal Consta 25 mg to 50 mg every 2 weeks, or Invega Sustenna 117 mg to 234 mg every 1-3 weeks. This is once appropriate titration of the short-acting medication has been reached. What is also proposed is that the patient may require a combination of both short and long-acting medications during the titration period. This is to control symptoms and determine the most effective maintenance dosage for long-acting medicines. 2. Reasonable alternatives, if there are any. At this point, there are none, per the treating physician. 3. Has the patient been tried on proposed treatment? He is refusing any medicines at present, and it is unclear if he has used any with any consistency for the last several years. The chart has pointed to his not adhering to recommendations. 4. Has the patient been tried on other treatment? He was discharged from the inpatient psychiatry unit on 09/01/2017 on Abilify 5 mg in the morning, 10 mg at night, and paliperidone 6 mg daily. 5. Anticipated benefits for proposed treatment. The anticipated benefits include reduction of manic symptoms, increased ability to organize his thoughts, which would then expect to increase his ability to cater for himself and improve chances of his sticking to treatment. The other benefit of taking medicines is an improvement in long-term prognosis, enhancing his ability to function without maritza and improve his chances to living in the community independently. 6. Reasonably foreseeable adverse effects: These include the extrapyramidal symptoms, sedation, and they also include the possibility, though rare, of neuroleptic malignant syndrome and tardive dyskinesia. 7. Prognosis without treatment: Without treatment he is expected to continue suffering from maritza, further exacerbation of his illness, mood fluctuations, and this may lead to requirement for additional hospitalization. This also increases his risks of being a danger to himself and others, including inadvertently. SECTION III - PATIENT'S CAPACITY: 1. Explained to the patient: Yes, an attempt was made to explain this to the patient. a) Condition b) Proposed treatment c) Anticipated benefits of treatment d) Risks of adverse effects of treatment e) Availability of other treatments and comparison of benefits and risks with the proposed treatment An attempt was made to explain the above to the patient, but it was not possible to do so, as he was not directable, displayed overly pressured, tangential, and rapid speech, and it was not possible to hold any discussion. 2. The risk of no treatment: This is as above. The risk is related to his continued disordered functioning and requirement for continued hospitalization as well. The risks of his being a danger to himself and others, including inadvertently, also increase. Hannah Gordon MD
[2020-08-17] MEDS: haloperidoL 5 MG TAB PO SCH ×3 (10:15→20:56)
[2020-08-17] MEDS: NICOTINE 21MG/24HR 1 EA TRANSDERMAL TD SCH (10:15)
--- NOTE | 2020-08-17 12:16 | MHIPNPDOC ---
[facility] Progress Note Progress Note DATE OF SERVICE: 08/17/20 Date of Service: 08/16/20 HISTORY: Patient is a 30 -year-old Single, Unemployed , male, who was brought by by Police, as he was found walking in the middle of the road, making bizarre statements. On interview, patient is tangential and hyperverbal has a long story about his travels on foot and he postulates that a passerby felt that he was walking strangely on the road. Patient is quite manic in his speech with flights of ideas, loose associations and displaying poor insight and judgment. States that he is into natural substances and does not want medications. Patient has had one previous admission to this facility in August 2017 with a diagnosis of Schizoaffective, Bipolar. Patient is unkempt. wearing his hair very long, has fungal on his toenail, states that he was living with a friend for a few days but alludes to being homeless for a few months. PER ED REPORT: Pt was brought to the ED by police on a 9.41 after being found walking in the middle of the road. Pt was making bizarre statements as well. When asked why he was brought to the ED by police, pt stated "There were reports made by people driving by me because of the unorthodox way I was flowing while traveling by foot down the highway." Pt states that these people made false allegations against him, but he admits that he was walking down the middle [place] [address]. Pt states that the police "were corrupting the p urity of my moment." He states that he is episcopalian & "I cannot be corrupted by rules because I am clever, witty, & kind." Pt states that he has walked close to 100 miles over the past few days. Pt is disheveled, unkempt, & malodorous. He states that he has not showered in at least a week. Pt's speech is rambling, rapid, pressured, & mumbled. His TP is disorganized & his concentration is poor. He will often start to answer a question & will then stop & ask what the question was. Pt denies both SI & HI. He denies any hx of suicide attempts or self-harm. Pt denies both AH & VH. He appears internally preoccupied at times, looking at the wall & mumbling. Pt denies both depression & anxiety. He reports "excellent" energy levels. He states that his sleep & appetite are good. When asked if he has a mental health dx he states "there was a false judgment against me a few years ago & they said I was bipolar." Pt has a hx of schizoaffective d/o with one admission to [facility]. He does not currently have OP t x. Pt reports occasional MJ use. He states that he uses alcohol occasionally & then states "less than five times per month." Pt's tox screen was negative. Pt states he has been homeless for four or five months. He states that over the course of that time he has stayed at hotels, [place], & with friends. Pt states that sometimes he does not have a place to stay so he just walks. VITAL SIGNS: See below. CURRENT MEDICATIONS: See below. MENTAL STATUS EXAMINATION: Patient is a 30 -year-old Single, Unemployed , male, who was brought by by Police, as he was found walking in the middle of the road, making bizarre statements. General Appearance: hygiene appears to be fair and grooming is poor, appears stated age, hospital scrubs/clothing, healed scars, other (tattoo right forearm, fungal toes, matted hair, long nails, long hair and mills) Build: thin Demeanor: cooperative Eye Contact: avoidant Activity: average Behavior: cooperative but not taking medications Speech: rapid, overproduction of vocabulary, tangential, less loose associations Mood: euthymic Affect: flat, at times irritable Thought Process: tangential, overproduction of speech, disorganized Thought Content (Delusions): less grandiose, more persecutory, less bizarre, denies SI, HI, delusions Thought Content (Other): ideas of reference (episcopalian references), paranoid Thought Content (Aggressive): moderately aggressive Perception (Hallucinations): none reported Perception (Other): Cognition (Impairment of): attention/concentration Cognition(Intelligence Est.): average Oriented: Awake, Alert, Oriented times three Insight: poor Judgment: Poor Psychosis: religiously preoccupied DIAGNOSES: Schizoaffective, Bipolar Type Nicotine Use Disorder Alcohol Use Disorder Cannabis Use Disorder ASSESSMENT: Patient is refusing to speak with provider, found lying in bed, resting on his right side. He is observed to be paranoid, delusional and continues to believe that his admission was based on false accusations. Accor ding to staff, patient has been isolative and withdrawn since his administrative hearing yesterday. Refuses to speak to staff and has hypervigilant eye contact when he does make eye contact. Patient believes that he should be able to take his belongings and leave, but again has no safe discharge plans other than to stay with a friend who may or may not have invited him to live with her. He does not have an address or phone number. Patient continues to have odd beliefs, refuses to speak in a room with blood pressure machine, walks away hastily, refuses to wash his hair which is not matted. Much of the information is obtained from all staff, as he refused to speak or engage with staff MANAGEMENT PLAN: Continue all medications, encourage patient to accept m edications. Order to 2 PC, [place] [facility] [place] will not take medications that will stabilize him. Treatment over objection. TIME SPENT: 25 minutes Vital Signs Vital Signs Date Time Temp Pulse Resp B/P (MAP) Pulse Ox O2 Delivery O2 Flow Rate FiO2 08/15/20 07:56 Room Air Current Medications Current Medications Medications (Trade) Dose Ordered Sig/Tong Route PRN Reason Start Time Stop Time Status Last Admin Dose Admin Al Hydrox/Mg Hydrox/Simethicone (Mylanta) 30 ml Q4HP PRN PO HEARTBURN/INDIGESTION 07/18/20 18:25 Benztropine Mesylate (Cogentin) 1 mg BID PRN PO EPS 07/19/20 15:30 Haloperidol (Haldol) 5 mg Q6HP PRN PO AGITATION 07/19/20 15:30 Haloperidol (Haldol) 5 mg TID PO 07/19/20 16:00 Home Med (Med Rec Complete!) ASDIRECTED XX 07/17/20 21:05 07/17/20 21:08 DC Ibuprofen (Advil) 400 mg Q6HP PRN PO PAIN 07/18/20 18:25 Magnesium Hydroxide (Milk Of Magnesia) 30 ml DAILYPRN PRN PO CONSTIPATION 07/18/20 18:25 Miscellaneous (Unresolved Clarification Entry) SEE LABEL COMMENTS UNRESOLVED XX 08/18/20 00:01 Nicotine (Nicoderm Cq 21mg) 1 patch DAILY TD 07/19/20 09:00 Olanzapine (ZyPREXA ZYDIS) 5 mg BID PRN PO ANXIETY/AGITATION 07/18/20 18:25 07/19/20 15:32 DC Trazodone HCl (Desyrel) 50 mg QHSP PRN PO INSOMNIA 07/18/20 18:25 Allergies Coded Allergies: No Known Allergies (Unverified , 08/21/17) ALEX AGUIRRE NP Aug 17, 2020 12:15
[2020-08-18] MEDS ORDERED: UNRESOLVED CLARIFICATION ENTRY XX SCH (00:01)
[2020-08-18] MEDS: haloperidoL 5 MG TAB PO SCH ×3 (09:00→21:00)
[2020-08-18 16:59] VITALS: BP 152/110
[2020-08-19] MEDS: haloperidoL 5 MG TAB PO SCH ×3 (08:10→21:00)
[2020-08-20] MEDS: haloperidoL 5 MG TAB PO SCH ×3 (09:00→20:39)
--- NOTE | 2020-08-20 13:00 | MHIPNPDOC ---
[facility] Progress Note Progress Note Date of Service: 08/20/20 HISTORY: Patient is a 30 -year-old Single, Unemployed , male, who was brought by by Police, as he was found walking in the middle of the road, making bizarre statements. On interview, patient is tangential and hyperverbal has a long story about his travels on foot and he postulates that a passerby felt that he was walking strangely on the road. Patient is quite manic in his speech with flights of ideas, loose associations and displaying poor insight and judgment. States that he is into natural substances and does not want medications. Patient has had one previous admission to this facility in August 2017 with a diagnosis of Schizoaffective, Bipolar. Patient is unkempt. wearing his hair very long, has fungal on his toenail, states that he was living with a friend for a few days but alludes to being homeless for a few months. PER ED REPORT: Pt was brought to the ED by police on a 9.41 after being found walking in the middle of the road. Pt was making bizarre statements as well. When asked why he was brought to the ED by police, pt stated "There were reports made by people driving by me because of the unorthodox way I was flowing while traveling by foot down the highway." Pt states that these people made false allegations against him, but he admits that he was walking down the middle of the road on [address]. Pt states that the police "were corrupting the purity of my moment." He states that he is faith & "I cannot be corrupted by rules because I am clever, witty, & kind." Pt states that he has walked close to 100 miles over the past few days. Pt is disheveled, unkempt, & malodorous. He states that he has not showered in at least a week. Pt's speech is rambling, rapid, pressured, & mumbled. His TP is disorganized & his concentration is poor. He will often start to answer a question & will then stop & ask what the question was. Pt denies both SI & HI. He denies any hx of suicide attempts or self-harm. Pt denies both AH & VH. He appears internally preoccupied at times, looking at the wall & mumbling. Pt denies both depression & anxiety. He reports "excellent" energy levels. He states that his sleep & appetite are good. When asked if he has a mental health dx he states "there was a false judgment against me a few years ago & they said I was bipolar." Pt has a hx of schizoaffective d/o with one admission to [facility]. He does not currently have OP tx. Pt reports occasional MJ use. He states that he uses alcohol occasionally & then states "less than five times per month." Pt's tox screen was negative. Pt states he has been homeless for four or five months. He states that over the course of that time he has stayed at hotels, [place], & with friends. Pt states that sometimes he does not have a place to stay so he just walks. VITAL SIGNS: See below. CURRENT MEDICATIONS: See below. MENTAL STATUS EXAMINATION: Patient is a 30 -year-old Single, Unemployed , male, who was brought by by Police, as he was found walking in the middle of the road, making bizarre statements. General Appearance: hygiene appears to be fair and grooming is poor, appears stated age, hospital scrubs/clothing, healed scars, other (tattoo right forearm, fungal toes, matted hair, long nails, long hair and mills) Build: thin Demeanor: cooperative Eye Contact: avoidant Activity: average Behavior: cooperative but not taking medications Speech: impoverished, refuses to speak to anyone today Mood: euthymic Affect: flat, at times irritable Thought Process: disorganized Thought Content (Delusions): less grandiose, more persecutory, less bizarre, denies SI, HI, delusions Thought Content (Other): ideas of reference (faith references), paranoid Thought Content (Aggressive): moderately aggressive Perception (Hallucinations): none reported Perception (Other): Cognition (Impairment of): attention/concentration Cognition(Intelligence Est.): average Oriented: Awake, Alert, Oriented times three Insight: impaired Judgment: impaired Psychosis: religiously preoccupied DIAGNOSES: Schizoaffective, Bipolar Type Nicotine Use Disorder Alcohol Use Disorder Cannabis Use Disorder ASSESSMENT: Patient refused to speak with provider. He is observed walking rapidly in the hallways, attempting to avoid eye contact with people. He is unkempt and disheveled. His hair is matted. He is in his room bellowing loudly, not angrily or animal like, but it is very loud. He continues to refuse medications and is unable to participate in group therapy. MANAGEMENT PLAN: Continue all medications, encourage patient to accept medications. Order to 2 PC, [place] [facility] [place] will [place] medications that will stabilize him. Treatment over objection. TIME SPENT: 15 minutes Vital Signs Vital Signs Date Time Temp Pulse Resp B/P (MAP) Pulse Ox O2 Delivery O2 Flow Rate FiO2 08/19/20 08:38 Room Air 08/18/20 16:59 98.3 99 20 152/110 (124) 99 Current Medications Current Medications Medications (Trade) Dose Ordered Sig/Tong Route PRN Reason Start Time Stop Time Status Last Admin Dose Admin Al Hydrox/Mg Hydrox/Simethicone (Mylanta) 30 ml Q4HP PRN PO HEARTBURN/INDIGESTION 07/18/20 18:25 Benztropine Mesylate (Cogentin) 1 mg BID PRN PO EPS 07/19/20 15:30 Haloperidol (Haldol) 5 mg Q6HP PRN PO AGITATION 07/19/20 15:30 Haloperidol (Haldol) 5 mg TID PO 07/19/20 16:00 Home Med (Med Rec Complete!) ASDIRECTED XX 07/17/20 21:05 07/17/20 21:08 DC Ibuprofen (Advil) 400 mg Q6HP PRN PO PAIN 07/18/20 18:25 Magnesium Hydroxide (Milk Of Magnesia) 30 ml DAILYPRN PRN PO CONSTIPATION 07/18/20 18:25 Miscellaneous (Unresolved Clarification Entry) SEE LABEL COMMENTS UNRESOLVED XX 08/18/20 00:01 08/17/20 19:39 DC Nicotine (Nicoderm Cq 21mg) 1 patch DAILY TD 07/19/20 09:00 08/17/20 18:56 DC Olanzapine (ZyPREXA ZYDIS) 5 mg BID PRN PO ANXIETY/AGITATION 07/18/20 18:25 07/19/20 15:32 DC Trazodone HCl (Desyrel) 50 mg QHSP PRN PO INSOMNIA 07/18/20 18:25 Allergies Coded Allergies: No Known Allergies (Unverified , 08/21/17) ALEX AGUIRRE WAREDRESSER Aug 20, 2020 11:29
[2020-08-21] MEDS: haloperidoL 5 MG TAB PO SCH ×3 (09:00→20:24)
--- NOTE | 2020-08-21 11:35 | MHIPNPDOC ---
[facility] Progress Note Progress Note Date of Service: 08/20/20 HISTORY: Patient is a 30 -year-old Single, Unemployed , male, who was brought by by Police, as he was found walking in the middle of the road, making bizarre statements. On interview, patient is tangential and hyperverbal has a long story about his travels on foot and he postulates that a passerby felt that he was walking strangely on the road. Patient is quite manic in his speech with flights of ideas, loose associations and displaying poor insight and judgment. States that he is into natural substances and does not want medications. Patient has had one previous admission to this facility in August 2017 with a diagnosis of Schizoaffective, Bipolar. Patient is unkempt. wearing his hair very long, has fungal on his toenail, states that he was living with a friend for a few days but alludes to being homeless for a few months. PER ED REPORT: Pt was brought to the ED by police on a 9.41 after being found walking in the middle of the road. Pt was making bizarre statements as well. When asked why he was brought to the ED by police, pt stated "There were reports made by people driving by me because of the unorthodox way I was flowing while traveling by foot down the highway." Pt states that these people made false allegations against him, but he admits that he was walking down the middle of the road on [address]. Pt states that the police "were corrupting the purity of my moment." He states that he is sabianism & "I cannot be corrupted by rules because I am clever, witty, & kind." Pt states that he has walked close to 100 miles over the past few days. Pt is disheveled, unkempt, & malodorous. He states that he has not showered in at least a week. Pt's speech is rambling, rapid, pressured, & mumbled. His TP is disorganized & his concentration is poor. He will often start to answer a question & will then stop & ask what the question was. Pt denies both SI & HI. He denies any hx of suicide attempts or self-harm. Pt denies both AH & VH. He appears internally preoccupied at times, looking at the wall & mumbling. Pt denies both depression & anxiety. He reports "excellent" energy levels. He states that his sleep & appetite are good. When asked if he has a mental health dx he states "there was a false judgment against me a few years ago & they said I was bipolar." Pt has a hx of schizoaffective d/o with one admission to [facility]. He does not currently have OP tx. Pt reports occasional MJ use. He states that he uses alcohol occasionally & then states "less than five times per month." Pt's tox screen was negative. Pt states he has been homeless for four or five months. He states that over the course of that time he has stayed at hotels, [place], & with friends. Pt states that sometimes he does not have a place to stay so he just walks. VITAL SIGNS: See below. CURRENT MEDICATIONS: See below. MENTAL STATUS EXAMINATION: Patient is a 30 -year-old Single, Unemployed , male, who was brought by by Police, as he was found walking in the middle of the road, making bizarre statements. General Appearance: hygiene appears to be fair and grooming is poor, appears stated age, hospital scrubs/clothing, healed scars, other (tattoo right forearm, fungal toes, matted hair, long nails, long hair and mills) Build: thin Demeanor: cooperative Eye Contact: avoidant Activity: average Behavior: cooperative but not taking medications Speech: normal rate tone and volume, overproduction and embellishment of his sentences Mood: euthymic Affect: flat, at times irritable Thought Process: disorganized Thought Content (Delusions): less grandiose, more persecutory, less bizarre, denies SI, HI, delusions Thought Content (Other): ideas of reference (sabianism references), paranoid Thought Content (Aggressive): less aggressive Perception (Hallucinations): none reported, less religiously preoccupied Perception (Other): Cognition (Impairment of): attention/concentration Cognition(Intelligence Est.): average Oriented: Awake, Alert, Oriented times three Insight: impaired Judgment: impaired Psychosis: religiously preoccupied DIAGNOSES: Schizoaffective, Bipolar Type Nicotine Use Disorder Alcohol Use Disorder Cannabis Use Disorder ASSESSMENT: Patient is less hypomanic today, was able to have a conversation with patient. He initially refused to speak in the office. He is quite paranoid of the blood pressure machine and refuses to be in that room. He requests in his tangential and overproductive speech to be discharged from the hospital. I reviewed with him the treatment plan was to pursue treatment over objection to medicate which I feel will stabilize him. I also reviewed with him my intent to [facility]. I encouraged the patient to seek legal advice if he disagreed and to go to court to have a administrative law judge hear his concerns. MANAGEMENT PLAN: Continue all medications, encourage patient to accept medications. Order to 2 PC, Transfer to [facility] [place] as patient will not take medicatio ns that will stabilize him. Treatment over objection. TIME SPENT: 25 minutes Vital Signs Vital Signs Date Time Temp Pulse Resp B/P (MAP) Pulse Ox O2 Delivery O2 Flow Rate FiO2 08/19/20 08:38 Room Air 08/18/20 16:59 98.3 99 20 152/110 (124) 99 Current Medications Current Medications Medications (Trade) Dose Ordered Sig/Tong Route PRN Reason Start Time Stop Time Status Last Admin Dose Admin Al Hydrox/Mg Hydrox/Simethicone (Mylanta) 30 ml Q4HP PRN PO HEARTBURN/INDIGESTION 07/18/20 18:25 Benztropine Mesylate (Cogentin) 1 mg BID PRN PO EPS 07/19/20 15:30 Haloperidol (Haldol) 5 mg Q6HP PRN PO AGITATION 07/19/20 15:30 Haloperidol (Haldol) 5 mg TID PO 07/19/20 16:00 Home Med (Med Rec Complete!) ASDIRECTED XX 07/17/20 21:05 07/17/20 21:08 DC Ibuprofen (Advil) 400 mg Q6HP PRN PO PAIN 07/18/20 18:25 Magnesium Hydroxide (Milk Of Magnesia) 30 ml DAILYPRN PRN PO CONSTIPATION 07/18/20 18:25 Miscellaneous (Unresolved Clarification Entry) SEE LABEL COMMENTS UNRESOLVED XX 08/18/20 00:01 08/17/20 19:39 DC Nicotine (Nicoderm Cq 21mg) 1 patch DAILY TD 07/19/20 09:00 08/17/20 18:56 DC Olanzapine (ZyPREXA ZYDIS) 5 mg BID PRN PO ANXIETY/AGITATION 07/18/20 18:25 07/19/20 15:32 DC Trazodone HCl (Desyrel) 50 mg QHSP PRN PO INSOMNIA 07/18/20 18:25 Allergies Coded Allergies: No Known Allergies (Unverified , 08/21/17) ALEX AGUIRRE NP Aug 21, 2020 11:35
[2020-08-22] MEDS: haloperidoL 5 MG TAB PO SCH ×3 (09:00→20:51)
--- NOTE | 2020-08-22 15:40 | MHIPNPDOC ---
[facility] Progress Note Progress Note DATE OF SERVICE: 08/22/20 HISTORY: Patient is a 30 -year-old Single, Unemployed , male, who was brought by by Police, as he was found walking in the middle of the road, making bizarre statements. On interview, patient is tangential and hyperverbal has a long story about his travels on foot and he postulates that a passerby felt that he was walking strangely on the road. Patient is quite manic in his speech with flights of ideas, loose associations and displaying poor insight and judgment. States that he is into natural substances and does not want medications. Patient has had one previous admission to this facility in August 2017 with a diagnosis of Schizoaffective, Bipolar. Patient is unkempt. wearing his hair very long, has fungal on his toenail, states that he was living with a friend fo r a few days but alludes to being homeless for a few months. PER ED REPORT: Pt was brought to the ED by police on a 9.41 after being found walking in the middle of the road. Pt was making bizarre statements as well. When asked why he was brought to the ED by police, pt stated "There were reports made by people driving by me because of the unorthodox way I was flowing while t raveling by foot down the highway." Pt states that these people made false allegations against him, but he admits that he was walking down the middle [place] [address]. Pt states that the police "were corrupting the purity of my moment." He states that he is restoration & "I cannot be corrupted by rules because I am clever, witty, & kind." Pt states that he has walked close to 100 miles over the past few days. Pt is disheveled, unkempt, & malodorous. He states that he has not showered in at least a week. Pt's speech is rambling, rapid, pressured, & mumbled. His TP is disorganized & his concentration is poor. He will often start to answer a question & will then stop & ask what the question was. Pt denies both SI & HI. He denies any hx of suicide attempts or self-harm. Pt denies both AH & VH. He appears internally preoccupied at times, looking at the wall & mumbling. Pt denies both depression & anxiety. He reports "excellent" energy levels. He states that his sleep & appetite are good. When asked if he has a mental health dx he states "there was a false judgment against me a few years ago & they said I was bipolar." Pt has a hx of schizoaffective d/o with one admission to [facility]. He does not currently have OP tx. Pt reports occasional MJ use. He states that he uses alcohol occasionally & then states "less than five times per month." Pt's tox screen was negative. Pt states he has been homeless for four or five months. He states that over the course of that time he has stayed at hotels, [place] rescue mission, & with friends. Pt states that sometimes he does not have a place to stay so he just walks. VITAL SIGNS: See below. CURRENT MEDICATIONS: See below. MENTAL STATUS EXAMINATION: Patient is a 30 -year-old Single, Unemployed , male, who was brought by by Police, as he was found walking in the middle of the road, making bizarre statements. General Appearance: hygiene appears to be fair and grooming is improving although he is disheveled, appears stated age, hospital scrubs/clothing, healed scars, other (tattoo right forearm, fungal toes, matted hair, long nails, long hair and mills) Build: thin Demeanor: cooperative Eye Contact: avoidant Activity: average Behavior: cooperative but not taking medications Speech: normal rate tone and volume, overproduction and embellishment of his sentences Mood: euthymic Affect: flat, at times irritable Thought Process: mildly linear at times but more often disorganized Thought Content (Delusions): less grandiose, less persecutory today, bizarre, denies SI, HI, delusions Thought Content (Other): ideas of reference (restoration references), paranoid Thought Content (Aggressive): none Perception (Hallucinations): none reported, less religiously preoccupied Perception (Other): Cognition (Impairment of): attention/concentration Cognition(Intelligence Est.): average Oriented: Awake, Alert, Oriented times three Insight: impaired Judgment: impaired Psychosis: religiously preoccupied DIAGNOSES: Schizoaffective, Bipolar Type Nicotine Use Disorder Alcohol Use Disorder Cannabis Use Disorder ASSESSMENT: Patient is observed as paranoid today, attempted to meet with him and he walked away. Stated that he could not speak to me, did not make eye contact. He looks away and refuses to make eye contact and turned his head while speaking. Per staff pt. refuses conversation "unless it has something to do with me l eaving today". Is observed by staff pacing hallway. Patient has refused medications, he is alert and oriented but has not permanent place to life, no finances and has a history of theft to support his activities of daily living i.e. food, cigarettes and basic necessities. Due to his continued poor insight and judgment, his discharge is not appropriate as he does not have normal m entation, safe discharge plans and cannot discuss how he would be able to meet his needs in the community. MANAGEMENT PLAN: Continue all medications, encourage patient to accept medications. Order to 2 PC, Transfer to [facility] as patient will not take medica tions that will stabilize him. Treatment over objection. TIME SPENT: 15 minutes Vital Signs Vital Signs Date Time Temp Pulse Resp B/P (MAP) Pulse Ox O2 Delivery O2 Flow Rate FiO2 08/19/20 08:38 Room Air 08/18/20 16:59 98.3 99 20 152/110 (124) 99 Current Medications Current Medications Medications (Trade) Dose Ordered Sig/Tong Route PRN Reason Start Time Stop Time Status Last Admin Dose Admin Al Hydrox/Mg Hydrox/Simethicone (Mylanta) 30 ml Q4HP PRN PO HEARTBURN/INDIGESTION 07/18/20 18:25 Benztropine Mesylate (Cogentin) 1 mg BID PRN PO EPS 07/19/20 15:30 Haloperidol (Haldol) 5 mg Q6HP PRN PO AGITATION 07/19/20 15:30 Haloperidol (Haldol) 5 mg TID PO 07/19/20 16:00 Home Med (Med Rec Complete!) ASDIRECTED XX 07/17/20 21:05 07/17/20 21:08 DC Ibuprofen (Advil) 400 mg Q6HP PRN PO PAIN 07/18/20 18:25 Magnesium Hydroxide (Milk Of Magnesia) 30 ml DAILYPRN PRN PO CONSTIPATION 07/18/20 18:25 Miscellaneous (Unresolved Clarification Entry) SEE LABEL COMMENTS UNRESOLVED XX 08/18/20 00:01 08/17/20 19:39 DC Nicotine (Nicoderm Cq 21mg) 1 patch DAILY TD 07/19/20 09:00 08/17/20 18:56 DC Olanzapine (ZyPREXA ZYDIS) 5 mg BID PRN PO ANXIETY/AGITATION 07/18/20 18:25 07/19/20 15:32 DC Trazodone HCl (Desyrel) 50 mg QHSP PRN PO INSOMNIA 07/18/20 18:25 Allergies Coded Allergies: No Known Allergies (Unverified , 08/21/17) ALEX AGUIRRE NP Aug 22, 2020 15:29
[2020-08-23] MEDS: haloperidoL 5 MG TAB PO SCH ×3 (09:00→20:29)
--- NOTE | 2020-08-23 10:40 | MHIPNPDOC ---
[facility] Progress Note Progress Note DATE OF SERVICE: 08/23/20 HISTORY: Patient is a 30 -year-old Single, Unemployed , male, who was brought by by Police, as he was found walking in the middle of the road, making bizarre statements. On interview, patient is tangential and hyperverbal has a long story about his travels on foot and he postulates that a passerby felt that he was walking strangely on the road. Patient is quite manic in his speech with flights of ideas, loose associations and displaying poor insight and judgment. States that he is into natural substances and does not want medications. Patient has had one previous admission to this facility in August 2017 with a diagnosis of Schizoaffective, Bipolar. Patient is unkempt. wearing his hair very long, has fungal on his toenail, states that he was living with a friend for a few days but alludes to being homeless for a few months. PER ED REPORT: Pt was brought to the ED by police on a 9.41 after being found walking in the middle of the road. Pt was making bizarre statements as well. When asked why he was brought to the ED by police, pt stated "There were reports made by people driving by me because of the unorthodox way I was flowing while traveling by foot down the highway." Pt states that these people made false allegations against him, but he admits that he was walking down the middle of the road on [address]. Pt states that the police "were corrupting the purity of my moment." He states that he is jehovah's witness & "I cannot be corrupted by rules because I am clever, witty, & kind." Pt states that he has walked close to 100 miles over the past few days. Pt is disheveled, unkempt, & malodorous. He states that he has not showered in at least a week. Pt's speech is rambling, rapid, pressured, & mumbled. His TP is disorganized & his concentration is poor. He will often start to answer a question & will then stop & ask what the question was. Pt denies both SI & HI. He denies any hx of suicide attempts or self-harm. Pt denies both AH & VH. He appears internally preoccupied at times, looking at the wall & mumbling. Pt denies both depression & anxiety. He reports "excellent" energy levels. He states that his sleep & appetite are good. When asked if he has a mental health dx he states "there was a false judgment against me a few years ago & they said I was bipolar." Pt has a hx of schizoaffective d/o with one admission to [facility]. He does not currently have OP tx. Pt reports occasional MJ use. He states that he uses alcohol occasionally & then states "less than five times per month." Pt's tox screen was negative. Pt states he has been homeless for four or five months. He states that over the course of that time he has stayed at hotels, [place], & with friends. Pt states that sometimes he does not have a place to stay so he just walks. VITAL SIGNS: See below. CURRENT MEDICATIONS: See below. MENTAL STATUS EXAMINATION: Patient is a 30 -year-old Single, Unemployed , male, who was brought by by Police, as he was found walking in the middle of the road, making bizarre statements. General Appearance: hygiene appears to be fair and grooming is improving although he is disheveled, appears stated age, hospital scrubs/clothing, healed scars, other (tattoo right forearm, fungal toes, matted hair, long nails, long hair and mills) Build: thin Demeanor: cooperative Eye Contact: avoidant Activity: average Behavior: cooperative but not taking medications Speech: normal rate tone and volume, overproduction and embellishment of his sentences Mood: irritable, at times hypomanic in his walking Affect: flat, at times irritable Thought Process: mildly linear at times but more often disorganized Thought Content (Delusions): less grandiose, less persecutory today, bizarre, denies SI, HI, delusions Thought Content (Other): ideas of reference (jehovah's witness references), paranoid Thought Content (Aggressive): none Perception (Hallucinations): none reported, less religiously preoccupied Perception (Other): Cognition (Impairment of): attention/concentration Cognition(Intelligence Est.): average Oriented: Awake, Alert, Oriented times three Insight: impaired Judgment: impaired Psychosis: religiously preoccupied DIAGNOSES: Schizoaffective, Bipolar Type Nicotine Use Disorder Alcohol Use Disorder Cannabis Use Disorder ASSESSMENT: Remains paranoid, attempted to meet with patient and he stated emphatically, "No!" Per staff that, he remains unchanged, not taking medications, but is calm and cooperative on the unit. It appears that his matted hair is less matted as he has been attempting to brush through it. He is observed walking in the hallways, does not attend groups, not social or conversant with peers. He does eat his meals in the dining room but he walks in the hallways throughout the day. I have encouraged the patient to speak to [facility] as he is in disagreement with treatment plan of my pursuit to seek treatment over objection and subsequent transfer to [facility]. He does not appear depressed or anxious. He does appear irritable and paranoid. MANAGEMENT PLAN: Continue all medications, encourage patient to accept medications. Order to 2 PC, Transfer to [facility] as patient will not take medications that will stabilize him. Treatment over objection. TIME SPENT: 15 minutes Vital Signs Vital Signs Date Time Temp Pulse Resp B/P (MAP) Pulse Ox O2 Delivery O2 Flow Rate FiO2 08/19/20 08:38 Room Air 08/18/20 16:59 98.3 99 20 152/110 (124) 99 Current Medications Current Medications Medications (Trade) Dose Ordered Sig/Tong Route PRN Reason Start Time Stop Time Status Last Admin Dose Admin Al Hydrox/Mg Hydrox/Simethicone (Mylanta) 30 ml Q4HP PRN PO HEARTBURN/INDIGESTION 07/18/20 18:25 Benztropine Mesylate (Cogentin) 1 mg BID PRN PO EPS 07/19/20 15:30 Haloperidol (Haldol) 5 mg Q6HP PRN PO AGITATION 07/19/20 15:30 Haloperidol (Haldol) 5 mg TID PO 07/19/20 16:00 Home Med (Med Rec Complete!) ASDIRECTED XX 07/17/20 21:05 07/17/20 21:08 DC Ibuprofen (Advil) 400 mg Q6HP PRN PO PAIN 07/18/20 18:25 Magnesium Hydroxide (Milk Of Magnesia) 30 ml DAILYPRN PRN PO CONSTIPATION 07/18/20 18:25 Miscellaneous (Unresolved Clarification Entry) SEE LABEL COMMENTS UNRESOLVED XX 08/18/20 00:01 08/17/20 19:39 DC Nicotine (Nicoderm Cq 21mg) 1 patch DAILY TD 07/19/20 09:00 08/17/20 18:56 DC Olanzapine (ZyPREXA ZYDIS) 5 mg BID PRN PO ANXIETY/AGITATION 07/18/20 18:25 07/19/20 15:32 DC Trazodone HCl (Desyrel) 50 mg QHSP PRN PO INSOMNIA 07/18/20 18:25 Allergies Coded Allergies: No Known Allergies (Unverified , 08/21/17) ALEX AGUIRRE RECEIVING WEIGHER Aug 23, 2020 10:40
[2020-08-24] MEDS: haloperidoL 5 MG TAB PO SCH ×3 (08:17→20:46)
--- NOTE | 2020-08-24 12:09 | MHIPNPDOC ---
[facility] Progress Note Progress Note DATE OF SERVICE: 08/24/20 HISTORY: Patient is a 30 -year-old Single, Unemployed , male, who was brought by by Police, as he was found walking in the middle of the road, making bizarre statements. On interview, patient is tangential and hyperverbal has a long story about his travels on foot and he postulates that a passerby felt that he was walking strangely on the road. Patient is quite manic in his speech with flights of ideas, loose associations and displaying poor insight and judgment. States that he is into natural substances and does not want medications. Patient has had one previous admission to this facility in August 2017 with a diagnosis of Schizoaffective, Bipolar. Patient is unkempt. wearing his hair very long, has fungal on his toenail, states that he was living with a friend for a few days but alludes to being homeless for a few months. PER ED REPORT: Pt was brought to the ED by police on a 9.41 after being found walking in the middle of the road. Pt was making bizarre statements as well. When asked why he was brought to the ED by police, pt stated "There were reports made by people driving by me because of the unorthodox way I was flowing while traveling by foot down the highway." Pt states that these people made false allegations against him, but he admits that he was walking down the middle of the road on [address]. Pt states that the police "were corrupting the purity of my moment." He states that he is hoahaoism & "I cannot be corrupted by rules because I am clever, witty, & kind." Pt states that he has walked close to 100 miles over the past few days. Pt is disheveled, unkempt, & malodorous. He states that he has not showered in at least a week. Pt's speech is rambling, rapid, pressured, & mumbled. His TP is disorganized & his concentration is poor. He will often start to answer a question & will then stop & ask what the question was. Pt denies both SI & HI. He denies any hx of suicide attempts or self-harm. Pt denies both AH & VH. He appears internally preoccupied at times, looking at the wall & mumbling. Pt denies both depression & anxiety. He reports "excellent" energy levels. He states that his sleep & appetite are good. When asked if he has a mental health dx he states "there was a false judgment against me a few years ago & they said I was bipolar." Pt has a hx of schizoaffective d/o with one admission to [facility]. He does not currently have OP tx. Pt reports occasional MJ use. He states that he uses alcohol occasionally & then states "less than five times per month." Pt's tox screen was negative. Pt states he has been homeless for four or five months. He states that over the course of that time he has stayed at hotels, [place], & with friends. Pt states that sometimes he does not have a place to stay so he just walks. VITAL SIGNS: See below. CURRENT MEDICATIONS: See below. MENTAL STATUS EXAMINATION: Patient is a 30 -year-old Single, Unemployed , male, who was brought by by Police, as he was found walking in the middle of the road, making bizarre statements. General Appearance: hygiene appears to be fair and grooming is improving although he is disheveled, appears stated age, hospital scrubs/clothing, healed scars, other (tattoo right forearm, fungal toes, less matted hair, long nails, long hair and mills) Build: thin Demeanor: cooperative but avoiding any communication with staff Eye Contact: avoidant Activity: average Behavior: cooperative but not taking medications Speech: normal rate tone and volume, overproduction and embellishment of his sentences Mood: irritable, at times hypomanic in his walking Affect: flat, at times irritable Thought Process: mildly linear at times but more often disorganized Thought Content (Delusions): less grandiose, less persecutory today, bizarre, denies SI, HI, delusions Thought Content (Other): ideas of reference (hoahaoism references), paranoid Thought Content (Aggressive): none Perception (Hallucinations): none reported, less religiously preoccupied Perception (Other): Cognition (Impairment of): attention/concentration Cognition(Intelligence Est.): average Oriented: Awake, Alert, Oriented times three Insight: impaired Judgment: impaired Psychosis: religiously preoccupied DIAGNOSES: Schizoaffective, Bipolar Type Nicotine Use Disorder Alcohol Use Disorder Cannabis Use Disorder ASSESSMENT: Attempted to meet with patient as he is walking in the hallway. He states, "Maybe a little later, I am exercising and I don't know...." Patient refused to make eye contact and was seen several times attempting to avoid eye contact while in the hallway. He is observed to be paranoid and suspicious. Patient remains non-compliant with medications, impaired insight and judgment, and symptoms control so tenuous that if discharged he would be readmitted immediately therefore his hospitalization is continued. Barriers to his discharge: Patient not sufficiently stable for discharge, patient unable to care for self without fdc, ability to provide food, he has not been employed for many years due to his mental illness, we are awaiting treatment over objection hearing and then will transfer to [facility] pending their approval. MANAGEMENT PLAN: Continue all medications, encourage patient to accept medications. Order to 2 PC, Transfer to [facility] as patient will not take medications that will stabilize him. Treatment over objection. TIME SPENT: 15 minutes Vital Signs Vital Signs Date Time Temp Pulse Resp B/P (MAP) Pulse Ox O2 Delivery O2 Flow Rate FiO2 08/19/20 08:38 Room Air 08/18/20 16:59 98.3 99 20 152/110 (124) 99 Current Medications Current Medications Medications (Trade) Dose Ordered Sig/Tong Route PRN Reason Start Time Stop Time Status Last Admin Dose Admin Al Hydrox/Mg Hydrox/Simethicone (Mylanta) 30 ml Q4HP PRN PO HEARTBURN/INDIGESTION 07/18/20 18:25 Benztropine Mesylate (Cogentin) 1 mg BID PRN PO EPS 07/19/20 15:30 Haloperidol (Haldol) 5 mg Q6HP PRN PO AGITATION 07/19/20 15:30 Haloperidol (Haldol) 5 mg TID PO 07/19/20 16:00 Home Med (Med Rec Complete!) ASDIRECTED XX 07/17/20 21:05 07/17/20 21:08 DC Ibuprofen (Advil) 400 mg Q6HP PRN PO PAIN 07/18/20 18:25 Magnesium Hydroxide (Milk Of Magnesia) 30 ml DAILYPRN PRN PO CONSTIPATION 07/18/20 18:25 Miscellaneous (Unresolved Clarification Entry) SEE LABEL COMMENTS UNRESOLVED XX 08/18/20 00:01 08/17/20 19:39 DC Nicotine (Nicoderm Cq 21mg) 1 patch DAILY TD 07/19/20 09:00 08/17/20 18:56 DC Olanzapine (ZyPREXA ZYDIS) 5 mg BID PRN PO ANXIETY/AGITATION 07/18/20 18:25 07/19/20 15:32 DC Trazodone HCl (Desyrel) 50 mg QHSP PRN PO INSOMNIA 07/18/20 18:25 Allergies Coded Allergies: No Known Allergies (Unverified , 08/21/17) ALEX AGUIRRE VALVE SETTER Aug 24, 2020 12:09
[2020-08-25] MEDS: haloperidoL 5 MG TAB PO SCH ×3 (09:00→20:52)
[2020-08-26] MEDS: haloperidoL 5 MG TAB PO SCH ×3 (08:48→21:00)
[2020-08-26] MEDS ORDERED: HALOPERIDOL 5MG/ML VIAL (J1630 PER 1) IM STA (15:15)
[2020-08-26] MEDS ORDERED: LORazepam 2 MG/ML VIAL IM STA (15:15)
[2020-08-26] MEDS ORDERED: diphenhydrAMINE 50MG/ML VIAL (J1200) IM STA (15:15)
[2020-08-26 18:41] VITALS: BP 130/74
--- NOTE | 2020-08-26 20:22 | MHIR ---
General Date: Aug 26, 2020 Restraint Documentation Order/Evaluation FACE TO FACE: YES. Arrived to bedside 1604. PHYSICIAN ASSESSMENT: Per report, patient developed aggressive behaviour, shouting profanities and racial slurs. REASON FOR RESTRAINT: Patient poses imminent danger of harming self or others: became aggressive, shouting, risk of physical escalation per nursing staff. DE-ESCALATION INTERVENTIONS ATTEMPTED BEFORE USE OF RESTRAINTS: redirection, verbal cues to calm. [MECHANICAL AND CHEMICAL] RESTRAINTS USED: mechanical 4 point restraints. 10 MG IM HALDOL, 2MG IM ATIVAN, 50MG IM BENADRYL. Physical exam was performed at the time of face to face. Patient appears calm. PERRLA. Lungs CTAB. Good inspiratory effort. CVS: RRR, normal S1, S2. LENGTH OF TIME ORDERED IN RESTRAINTS: 240 minutes. WHEN TO DISCONTINUE RESTRAINTS: When the patient is no longer a threat to themselves or others Post evaluation of restraint due in 24 hours. GINNY PANDEY MD Aug 26, 2020 20:22
[2020-08-27] MEDS: haloperidoL 5 MG TAB PO SCH ×4 (08:54→21:00)
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
[2020-08-28] MEDS: haloperidoL 5 MG TAB PO SCH ×3 (09:00→21:00)
--- NOTE | 2020-08-28 11:34 | MHIPNPDOC ---
[facility] Progress Note Progress Note DATE OF SERVICE: 08/28/20 HISTORY: Patient is a 30 -year-old Single, Unemployed , male, who was brought by by Police, as he was found walking in the middle of the road, making bizarre statements. On interview, patient is tangential and hyperverbal has a long story about his travels on foot and he postulates that a passerby felt that he was walking strangely on the road. Patient is quite manic in his speech with flights of ideas, loose associations and displaying poor insight and judgment. States that he is into natural substances and does not want medications. Patient has had one previous admission to this facility in August 2017 with a diagnosis of Schizoaffective, Bipolar. Patient is unkempt. wearing his hair very long, has fungal on his toenail, states that he was living with a friend fo r a few days but alludes to being homeless for a few months. PER ED REPORT: Pt was brought to the ED by police on a 9.41 after being found walking in the middle of the road. Pt was making bizarre statements as well. When asked why he was brought to the ED by police, pt stated "There were reports made by people driving by me because of the unorthodox way I was flowing while traveling by foot down the highway." Pt states that these people made false allegations against him, but he admits that he was walking down the middle of the road on [address]. Pt states that the police "were corrupting the purity of my moment." He states that he is christian & "I cannot be corrupted by rules because I am clever, witty, & kind." Pt states that he has walked c lose to 100 miles over the past few days. Pt is disheveled, unkempt, & malodorous. He states that he has not showered in at least a week. Pt's speech is rambling, rapid, pressured, & mumbled. His TP is disorganized & his concentration is poor. He will often start to answer a question & will then stop & ask what the question was. Pt denies both SI & HI. He denies any hx of suicide attempts or self-harm. Pt denies both AH & VH. He appears internally preoccupied at times, looking at the wall & mumbling. Pt denies both depression & anxiety. He reports "excellent" energy levels. He states that his sleep & appetite are good. When asked if he has a mental health dx he states "there was a false judgment against me a few years ago & they said I was bipolar." Pt has a hx of schizoaffective d/o with one admission [facility]. He does not currently have OP tx. Pt reports occasional MJ use. He states that he uses alcohol occasionally & then states "less than five times per month." Pt's tox screen was negative. Pt states he has been homeless for four or five months. He states that over the course of that time he has stayed at hotels, [place], & with friends. Pt states that sometimes he does not have a place to stay so he just walks. VITAL SIGNS: See below. CURRENT MEDICATIONS: See below. MENTAL STATUS EXAMINATION: Patient is a 30 -year-old Single, Unemployed , male, who was brought by by Police, as he was found walking in the middle of the road, making bizarre statements. General Appearance: hygiene appears to be fair and grooming is improving and he is less disheveled, appears stated age, hospital scrubs/clothing, healed scars, other (tattoo right forearm, fungal toes, less matted hair, cut his nails this morning nails, long hair and mills) patient said that he was considering shaving his mills and cutting his hair. Build: thin Demeanor: cooperative but avoiding any communication with staff Eye Contact: avoidant Activity: average Behavior: cooperative but not taking medications Speech: normal rate tone and volume, overproduction and embellishment of his sentences Mood: irritable, at times hypomanic in his walking Affect: flat, at times irritable Thought Process: mildly linear at times but more often disorganized Thought Content (Delusions): less grandiose, less persecutory today, bizarre, denies SI, HI, delusions Thought Content (Other): ideas of reference (christian references), paranoid, hypomanic Thought Content (Aggressive): none Perception (Hallucinations): none reported, less religiously preoccupied Perception (Other): Cognition (Impairment of): attention/concentration Cognition(Intelligence Est.): average Oriented: Awake, Alert, Oriented times three Insight: Fair Judgment: impaired still refusing to take medications Psychosis: religiously preoccupied DIAGNOSES: Schizoaffective, Bipolar Type Nicotine Use Disorder Alcohol Use Disorder Cannabis Use Disorder ASSESSMENT: Patient was waiting outside the door of the interview room for meeting without being asked. On interview yesterday August 27 patient said that he was willing to do a 7-day course of medications so that he could get out of the inpatient mental health unit. Patient did not allow nurses to give him medications yesterday. As compared to yesterday, patient's thoughts were much less erratic and his speech was much more organized. Patient expressed frustration over length of hospital stay and wanted to seek options that would allow him to leave the inpatient mental health unit. One of the options that the patient was interested in was admission to the [facility]. Patient asked if treatment over objection is necessary for admission into the [facility]. Explained to patient that [place] will require treatment over objection for his admittance into their unit. Patient demonstrates good insight into his conditio n. Patient is still not convinced that the medication is necessary for him to get better. Patient is hopeful and optimistic of his odds of winning the treatment over objection case on and being subsequently discharged. Patient cut his nails this morning, and said he is considering shaving his mills and cutting his hair. MANAGEMENT PLAN: Continue all medications, encourage patient to accept medications. Order to 2 PC, Transfer to [facility] as patient will not take medications that will stabilize him. Treatment over objection scheduled this . TIME SPENT: 25 minutes Vital Signs Vital Signs Vital Signs Date Time Temp Pulse Resp B/P (MAP) Pulse Ox O2 Delivery O2 Flow Rate FiO2 08/26/20 18:41 Current Medications Current Medications Medications (Trade) Dose Ordered Sig/Tong Route PRN Reason Start Time Stop Time Status Last Admin Dose Admin Al Hydrox/Mg Hydrox/Simethicone (Mylanta) 30 ml Q4HP PRN PO HEARTBURN/INDIGESTION 07/18/20 18:25 Benztropine Mesylate (Cogentin) 1 mg BID PRN PO EPS 07/19/20 15:30 Diphenhydramine HCl (Benadryl) 50 mg STAT STAT IM 08/26/20 15:15 08/26/20 15:17 DC 08/26/20 15:37 Haloperidol (Haldol) 5 mg Q6HP PRN PO AGITATION 07/19/20 15:30 Haloperidol (Haldol) 5 mg TID PO 07/19/20 16:00 Haloperidol (Haldol) 10 mg STAT STAT IM 08/26/20 15:15 08/26/20 15:17 DC 08/26/20 15:37 Home Med (Med Rec Complete!) ASDIRECTED XX 07/17/20 21:05 07/17/20 21:08 DC Ibuprofen (Advil) 400 mg Q6HP PRN PO PAIN 07/18/20 18:25 Lorazepam (Ativan) 2 mg STAT STAT IM 08/26/20 15:15 08/26/20 15:17 DC 08/26/20 15:36 Magnesium Hydroxide (Milk Of Magnesia) 30 ml DAILYPRN PRN PO CONSTIPATION 07/18/20 18:25 Miscellaneous (Unresolved Clarification Entry) SEE LABEL COMMENTS UNRESOLVED XX 08/18/20 00:01 08/17/20 19:39 DC Nicotine (Nicoderm Cq 21mg) 1 patch DAILY TD 07/19/20 09:00 08/17/20 18:56 DC Olanzapine (ZyPREXA ZYDIS) 5 mg BID PRN PO ANXIETY/AGITATION 07/18/20 18:25 07/19/20 15:32 DC Trazodone HCl (Desyrel) 50 mg QHSP PRN PO INSOMNIA 07/18/20 18:25 Allergies Coded Allergies: No Known Allergies (Unverified , 08/21/17) ALEX AGUIRRE PET CARE ASSISTANT Aug 28, 2020 11:34
[2020-08-29] MEDS: haloperidoL 5 MG TAB PO SCH ×3 (08:27→20:17)
--- NOTE | 2020-08-29 10:56 | MHIPNPDOC ---
[facility] Progress Note Progress Note DATE OF SERVICE: 08/29/20 HISTORY: Patient is a 30 -year-old Single, Unemployed , male, who was brought by by Police, as he was found walking in the middle of the road, making bizarre statements. On interview, patient is tangential and hyperverbal has a long story about his travels on foot and he postulates that a passerby felt that he was walking strangely on the road. Patient is quite manic in his speech with flights of ideas, loose associations and displaying poor insight and judgment. States that he is into natural substances and does not want medications. Patient has had one previous admission to this facility in August 2017 with a diagnosis of Schizoaffective, Bipolar. Patient is unkempt. wearing his hair very long, has fungal on his toenail, states that he was living with a friend fo r a few days but alludes to being homeless for a few months. PER ED REPORT: Pt was brought to the ED by police on a 9.41 after being found walking in the middle of the road. Pt was making bizarre statements as well. When asked why he was brought to the ED by police, pt stated "There were reports made by people driving by me because of the unorthodox way I was flowing while traveling by foot down the highway." Pt states that these people made false allegations against him, but he admits that he was walking down the middle of the road on [address]. Pt states that the police "were corrupting the purity of my moment." He states that he is hoahaoism & "I cannot be corrupted by rules because I am clever, witty, & kind." Pt states that he has walked c lose to 100 miles over the past few days. Pt is disheveled, unkempt, & malodorous. He states that he has not showered in at least a week. Pt's speech is rambling, rapid, pressured, & mumbled. His TP is disorganized & his concentration is poor. He will often start to answer a question & will then stop & ask what the question was. Pt denies both SI & HI. He denies any hx of suicide attempts or self-harm. Pt denies both AH & VH. He appears internally preoccupied at times, looking at the wall & mumbling. Pt denies both depression & anxiety. He reports "excellent" energy levels. He states that his sleep & appetite are good. When asked if he has a mental health dx he states "there was a false judgment against me a few years ago & they said I was bipolar." Pt has a hx of schizoaffective d/o with one admission to [facility]. He does not currently have OP tx. Pt reports occasional MJ use. He states that he uses alcohol occasionally & then states "less than five times per month." Pt's tox screen was negative. Pt states he has been homeless for four or five months. He states that over the course of that time he has stayed at hotels, [place], & with friends. Pt states that sometimes he does not have a place to stay so he just walks. VITAL SIGNS: See below. CURRENT MEDICATIONS: See below. MENTAL STATUS EXAMINATION: Patient is a 30 -year-old Single, Unemployed , male, who was brought by by Police, as he was found walking in the middle of the road, making bizarre statements. General Appearance: hygiene appears to be fair and grooming is improving and he is less disheveled, appears stated age, hospital scrubs/clothing, healed scars, other (tattoo right forearm, fungal toes, less matted hair, cut his nails this morning nails, long hair and mills) patient said that he was considering shaving his mills and cutting his hair. Build: thin Demeanor: cooperative Eye Contact: avoidant Activity: average Behavior: cooperative but not taking medications Speech: rapid rate normal tone and volume, overproduction and embellishment of his sentences Mood:euthymic Affect: flat, reactive at times Thought Process: more disorganized Thought Content (Delusions): more grandiose,more hoahaoism persecutory today, denies SI, HI, Thought Content (Other): ideas of reference (hoahaoism references), paranoid, hypomanic Thought Content (Aggressive): none Perception (Hallucinations): none reported, he is more religiously preoccupied today Perception (Other): Cognition (Impairment of): attention/concentration Cognition(Intelligence Est.): average Oriented: Awake, Alert, Oriented times three Insight: Impaired to fair at times Judgment: impaired still refusing to take medications Psychosis: religiously preoccupied DIAGNOSES: Schizoaffective, Bipolar Type Nicotine Use Disorder Alcohol Use Disorder Cannabis Use Disorder ASSESSMENT: Patient says he is doing "fairly good". Patient is tangential and circumstantial. Still refusing to take medications. He believes that medications are not needed - he says he is physical fit, reads books, and is very hoahaoism and because of these beliefs does not think he needs to take medications. Believes that he was hospitalized incorrectly and detained in the hospital because of false accounts of his actions. Says he has a friend that he can stay with - Joi Michael. Has good insight into what is happening understand the consequences of the court hearing that is occurring. Is unable to use the toothbrush given by the facility because of the color and there is writing on it says that it "will corrupt" him to use the toothbrush because of the color scheme. He is also requesting to have clothes that are dark or white in color. Believes that certain items that are are impure, therefore because the toothbrush is blue and has writing on it, he cannot brush his teeth and has not done so while hospitalized. MANAGEMENT PLAN: Continue all medications, encourage patient to accept medications. Order to 2 PC, Transfer to [facility] as patient will not take medications that will stabilize him. Treatment over objection scheduled this . TIME SPENT: 25 minutes Vital Signs Vital Signs Date Time Temp Pulse Resp B/P (MAP) Pulse Ox O2 Delivery O2 Flow Rate FiO2 08/26/20 18:41 Current Medications Current Medications Medications (Trade) Dose Ordered Sig/Tong Route PRN Reason Start Time Stop Time Status Last Admin Dose Admin Al Hydrox/Mg Hydrox/Simethicone (Mylanta) 30 ml Q4HP PRN PO HEARTBURN/INDIGESTION 07/18/20 18:25 Benztropine Mesylate (Cogentin) 1 mg BID PRN PO EPS 07/19/20 15:30 Diphenhydramine HCl (Benadryl) 50 mg STAT STAT IM 08/26/20 15:15 08/26/20 15:17 DC 08/26/20 15:37 Haloperidol (Haldol) 5 mg Q6HP PRN PO AGITATION 07/19/20 15:30 Haloperidol (Haldol) 5 mg TID PO 07/19/20 16:00 Haloperidol (Haldol) 10 mg STAT STAT IM 08/26/20 15:15 08/26/20 15:17 DC 08/26/20 15:37 Home Med (Med Rec Complete!) ASDIRECTED XX 07/17/20 21:05 07/17/20 21:08 DC Ibuprofen (Advil) 400 mg Q6HP PRN PO PAIN 07/18/20 18:25 Lorazepam (Ativan) 2 mg STAT STAT IM 08/26/20 15:15 08/26/20 15:17 DC 08/26/20 15:36 Magnesium Hydroxide (Milk Of Magnesia) 30 ml DAILYPRN PRN PO CONSTIPATION 07/18/20 18:25 Miscellaneous (Unresolved Clarification Entry) SEE LABEL COMMENTS UNRESOLVED XX 08/18/20 00:01 08/17/20 19:39 DC Nicotine (Nicoderm Cq 21mg) 1 patch DAILY TD 07/19/20 09:00 08/17/20 18:56 DC Olanzapine (ZyPREXA ZYDIS) 5 mg BID PRN PO ANXIETY/AGITATION 07/18/20 18:25 07/19/20 15:32 DC Trazodone HCl (Desyrel) 50 mg QHSP PRN PO INSOMNIA 07/18/20 18:25 Allergies Coded Allergies: No Known Allergies (Unverified , 08/21/17) ALEX AGUIRRE THREADING MACHINE OPERATOR Aug 29, 2020 10:56
[2020-08-30] MEDS: haloperidoL 5 MG TAB PO SCH ×3 (08:22→20:09)
--- NOTE | 2020-08-30 14:30 | MHIPNPDOC ---
[facility] Progress Note Progress Note DATE OF SERVICE: 08/30/20 HISTORY: Patient is a 30 -year-old Single, Unemployed , male, who was brought by by Police, as he was found walking in the middle of the road, making bizarre statements. On interview, patient is tangential and hyperverbal has a long story about his travels on foot and he postulates that a passerby felt that he was walking strangely on the road. Patient is quite manic in his speech with flights of ideas, loose associations and displaying poor insight and judgment. States that he is into natural substances and does not want medications. Patient has had one previous admission to this facility in August 2017 with a diagnosis of Schizoaffective, Bipolar. Patient is unkempt. wearing his hair very long, has fungal on his toenail, states that he was living with a friend fo r a few days but alludes to being homeless for a few months. PER ED REPORT: Pt was brought to the ED by police on a 9.41 after being found walking in the middle of the road. Pt was making bizarre statements as well. When asked why he was brought to the ED by police, pt stated "There were reports made by people driving by me because of the unorthodox way I was flowing while traveling by foot down the highway." Pt states that these people made false allegations against him, but he admits that he was walking down the middle [place] [address]. Pt states that the police "were corrupting the purity of my moment." He states that he is muslim & "I cannot be corrupted by rules because I am clever, witty, & kind." Pt states that he has walked c lose to 100 miles over the past few days. Pt is disheveled, unkempt, & malodorous. He states that he has not showered in at least a week. Pt's speech is rambling, rapid, pressured, & mumbled. His TP is disorganized & his concentration is poor. He will often start to answer a question & will then stop & ask what the question was. Pt denies both SI & HI. He denies any hx of suicide attempts or self-harm. Pt denies both AH & VH. He appears internally preoccupied at times, looking at the wall & mumbling. Pt denies both depression & anxiety. He reports "excellent" energy levels. He states that his sleep & appetite are good. When asked if he has a mental health dx he states "there was a false judgment against me a few years ago & they said I was bipolar." Pt has a hx of schizoaffective d/o with one admission to [facility]. He does not currently have OP tx. Pt reports occasional MJ use. He states that he uses alcohol occasionally & then states "less than five times per month." Pt's tox screen was negative. Pt states he has been homeless for four or five months. He states that over the course of that time he has stayed at hotels, [place] rescue mission, & with friends. Pt states that sometimes he does not have a place to stay so he just walks. VITAL SIGNS: See below. CURRENT MEDICATIONS: See below. MENTAL STATUS EXAMINATION: Patient is a 30 -year-old Single, Unemployed , male, who was brought by by Police, as he was found walking in the middle of the road, making bizarre statements. General Appearance: hygiene appears to be fair and grooming is improving and he is less disheveled, appears stated age, hospital scrubs/clothing, healed scars, other (tattoo right forearm, fungal toes, less matted hair, cut his nails this morning nails, long hair and mills) patient said that he was considering shaving his mills and cutting his hair. Build: thin Demeanor: cooperative Eye Contact: avoidant Activity: average Behavior: cooperative but not taking medications Speech: rapid rate normal tone and volume, overproduction and embellishment of his sentences Mood:euthymic Affect: flat, reactive at times Thought Process: linear and organized Thought Content (Delusions): less grandiose,more muslim persecutory today, denies SI, HI, Thought Content (Other): ideas of reference (muslim references) Thought Content (Aggressive): none Perception (Hallucinations): none reported, he is more religiously preoccupied today Perception (Other): Cognition (Impairment of): attention/concentration Cognition(Intelligence Est.): average Oriented: Awake, Alert, Oriented times three Insight: Impaired to fair at times Judgment: impaired still refusing to take medications Psychosis: religiously preoccupied DIAGNOSES: Schizoaffective, Bipolar Type Nicotine Use Disorder Alcohol Use Disorder Cannabis Use Disorder ASSESSMENT:Patient is found in his room. He is less tangential and circumstan tial in his speech. He appears to be cooperative and I explained the verdict by the court, reinforced that he will need to taken medications. Of note, the safety security officer stated that he did not believe that the patient posed a danger to himself and others. Patient was however very tangential and circumstantial in the court proceedings but he was not delusional or paranoid. Today his thought process was linear and organized, he was not paranoid or delusional. I have reinforced with the patient that he needs to comply with the verdict and take medications and he will subsequently be discharged. MANAGEMENT PLAN: Continue all medications, encourage patient to accept medications. Patient had court hearing today. The safety security officer sided in favor of [facility] and we will have an order for medications. Once patient has received long acting depot and he has a safe discharge plan he may leave the hospital. TIME SPENT: 25 minutes Vital Signs Vital Signs Date Time Temp Pulse Resp B/P (MAP) Pulse Ox O2 Delivery O2 Flow Rate FiO2 08/26/20 18:41 Current Medications Current Medications Medications (Trade) Dose Ordered Sig/Tong Route PRN Reason Start Time Stop Time Status Last Admin Dose Admin Al Hydrox/Mg Hydrox/Simethicone (Mylanta) 30 ml Q4HP PRN PO HEARTBURN/INDIGESTION 07/18/20 18:25 Benztropine Mesylate (Cogentin) 1 mg BID PRN PO EPS 07/19/20 15:30 Diphenhydramine HCl (Benadryl) 50 mg STAT STAT IM 08/26/20 15:15 08/26/20 15:17 DC 08/26/20 15:37 Haloperidol (Haldol) 5 mg Q6HP PRN PO AGITATION 07/19/20 15:30 Haloperidol (Haldol) 5 mg TID PO 07/19/20 16:00 Haloperidol (Haldol) 10 mg STAT STAT IM 08/26/20 15:15 08/26/20 15:17 DC 08/26/20 15:37 Home Med (Med Rec Complete!) ASDIRECTED XX 07/17/20 21:05 07/17/20 21:08 DC Ibuprofen (Advil) 400 mg Q6HP PRN PO PAIN 07/18/20 18:25 Lorazepam (Ativan) 2 mg STAT STAT IM 08/26/20 15:15 08/26/20 15:17 DC 08/26/20 15:36 Magnesium Hydroxide (Milk Of Magnesia) 30 ml DAILYPRN PRN PO CONSTIPATION 07/18/20 18:25 Miscellaneous (Unresolved Clarification Entry) SEE LABEL COMMENTS UNRESOLVED XX 08/18/20 00:01 08/17/20 19:39 DC Nicotine (Nicoderm Cq 21mg) 1 patch DAILY TD 07/19/20 09:00 08/17/20 18:56 DC Olanzapine (ZyPREXA ZYDIS) 5 mg BID PRN PO ANXIETY/AGITATION 07/18/20 18:25 07/19/20 15:32 DC Trazodone HCl (Desyrel) 50 mg QHSP PRN PO INSOMNIA 07/18/20 18:25 Allergies Coded Allergies: No Known Allergies (Unverified , 08/21/17) ALEX AGUIRRE NP Aug 30, 2020 14:30
--- NOTE | 2020-08-31 08:30 | MHIPNPDOC ---
[facility] Progress Note Progress Note DATE OF SERVICE: 08/31/20 HISTORY: Patient is a 30 -year-old Single, Unemployed , male, who was brought by by Police, as he was found walking in the middle of the road, making bizarre statements. On interview, patient is tangential and hyperverbal has a long story about his travels on foot and he postulates that a passerby felt that he was walking strangely on the road. Patient is quite manic in his speech with flights of ideas, loose associations and displaying poor insight and judgment. States that he is into natural substances and does not want medications. Patient has had one previous admission to this facility in August 2017 with a diagnosis of Schizoaffective, Bipolar. Patient is unkempt. wearing his hair very long, has fungal on his toenail, states that he was living with a friend fo r a few days but alludes to being homeless for a few months. PER ED REPORT: Pt was brought to the ED by police on a 9.41 after being found walking in the middle of the road. Pt was making bizarre statements as well. When asked why he was brought to the ED by police, pt stated "There were reports made by people driving by me because of the unorthodox way I was flowing while traveling by foot down the highway." Pt states that these people made false allegations against him, but he admits that he was walking down the middle of the road on [address]. Pt states that the police "were corrupting the purity of my moment." He states that he is lutheran & "I cannot be corrupted by rules because I am clever, witty, & kind." Pt states that he has walked c lose to 100 miles over the past few days. Pt is disheveled, unkempt, & malodorous. He states that he has not showered in at least a week. Pt's speech is rambling, rapid, pressured, & mumbled. His TP is disorganized & his concentration is poor. He will often start to answer a question & will then stop & ask what the question was. Pt denies both SI & HI. He denies any hx of suicide attempts or self-harm. Pt denies both AH & VH. He appears internally preoccupied at times, looking at the wall & mumbling. Pt denies both depression & anxiety. He reports "excellent" energy levels. He states that his sleep & appetite are good. When asked if he has a mental health dx he states "there was a false judgment against me a few years ago & they said I was bipolar." Pt has a hx of schizoaffective d/o with one admission to [facility]. He does not currently have OP tx. Pt reports occasional MJ use. He states that he uses alcohol occasionally & then states "less than five times per month." Pt's tox screen was negative. Pt states he has been homeless for four or five months. He states that over the course of that time he has stayed at hotels, [place] rescue [place], & with friends. Pt states that sometimes he does not have a place to stay so he just walks. VITAL SIGNS: See below. CURRENT MEDICATIONS: See below. MENTAL STATUS EXAMINATION: Patient is a 30 -year-old Single, Unemployed , male, who was brought by by Police, as he was found walking in the middle of the road, making bizarre statements. General Appearance: hygiene appears to be fair and grooming is improving and he is less disheveled, appears stated age, hospital scrubs/clothing, healed scars, other (tattoo right forearm, fungal toes, less matted hair, cut his nails this morning nails, long hair and mills) patient said that he was considering shaving his mills and cutting his hair. Build: thin Demeanor: cooperative Eye Contact: avoidant Activity: average Behavior: cooperative but not taking medications Speech: rapid rate normal tone and volume, overproduction and embellishment of his sentences Mood:euthymic Affect: flat, reactive at times Thought Process: linear and organized Thought Content (Delusions): less grandiose,more lutheran persecutory today, denies SI, HI, Thought Content (Other): ideas of reference (lutheran references) Thought Content (Aggressive): none Perception (Hallucinations): none reported, he is more religiously preoccupied today Perception (Other): Cognition (Impairment of): attention/concentration Cognition(Intelligence Est.): average Oriented: Awake, Alert, Oriented times three Insight: Impaired to fair at times Judgment: impaired still refusing to take medications Psychosis: religiously preoccupied DIAGNOSES: Schizoaffective, Bipolar Type Nicotine Use Disorder Alcohol Use Disorder Cannabis Use Disorder ASSESSMENT: Patient is found in his room. Patient was found in his room running in place as a form of exercise. Patient expressed disapproval multiple times of the judges verdict that he must take medications. Patient also expressed that he felt that medications were not necessary and that they would "damage or corrupt his person". He is less tangential and circumstantial in his speech. Of note, the call or contact centre manager stated that he did not believe that the patient posed a danger to himself and others. I have reinforced with the patient that he needs to comply with the verdict and take medications and he will subsequently be discharged. MANAGEMENT PLAN: Continue all medications, encourage patient to accept medications. Patient had court hearing today. The call or contact centre manager sided in favor of [facility] and we will have an order for medications. Once patient has received long acting depot and he has a safe discharge plan he may leave the hospital. TIME SPENT: 25 minutes Vital Signs Vital Signs Date Time Temp Pulse Resp B/P (MAP) Pulse Ox O2 Delivery O2 Flow Rate FiO2 08/26/20 18:41 Current Medications Current Medications Medications (Trade) Dose Ordered Sig/Tong Route PRN Reason Start Time Stop Time Status Last Admin Dose Admin Al Hydrox/Mg Hydrox/Simethicone (Mylanta) 30 ml Q4HP PRN PO HEARTBURN/INDIGESTION 07/18/20 18:25 Benztropine Mesylate (Cogentin) 1 mg BID PRN PO EPS 07/19/20 15:30 Diphenhydramine HCl (Benadryl) 50 mg STAT STAT IM 08/26/20 15:15 08/26/20 15:17 DC 08/26/20 15:37 Haloperidol (Haldol) 5 mg Q6HP PRN PO AGITATION 07/19/20 15:30 Haloperidol (Haldol) 5 mg TID PO 07/19/20 16:00 Haloperidol (Haldol) 10 mg STAT STAT IM 08/26/20 15:15 08/26/20 15:17 DC 08/26/20 15:37 Home Med (Med Rec Complete!) ASDIRECTED XX 07/17/20 21:05 07/17/20 21:08 DC Ibuprofen (Advil) 400 mg Q6HP PRN PO PAIN 07/18/20 18:25 Lorazepam (Ativan) 2 mg STAT STAT IM 08/26/20 15:15 08/26/20 15:17 DC 08/26/20 15:36 Magnesium Hydroxide (Milk Of Magnesia) 30 ml DAILYPRN PRN PO CONSTIPATION 07/18/20 18:25 Miscellaneous (Unresolved Clarification Entry) SEE LABEL COMMENTS UNRESOLVED XX 08/18/20 00:01 08/17/20 19:39 DC Nicotine (Nicoderm Cq 21mg) 1 patch DAILY TD 07/19/20 09:00 08/17/20 18:56 DC Olanzapine (ZyPREXA ZYDIS) 5 mg BID PRN PO ANXIETY/AGITATION 07/18/20 18:25 07/19/20 15:32 DC Trazodone HCl (Desyrel) 50 mg QHSP PRN PO INSOMNIA 07/18/20 18:25 Allergies Coded Allergies: No Known Allergies (Unverified , 08/21/17) ALEX AGUIRRE ELECTROENCEPHALOGRAPH TECHNOLOGIST Aug 31, 2020 08:30
[2020-08-31] MEDS ORDERED: HALOPERIDOL 5MG/ML VIAL (J1630 PER 1) IM STA (09:03)
[2020-08-31] MEDS ORDERED: BENZTROPINE MESYLATE 2MG/2ML VIAL IM PRN (09:05)
[2020-08-31] MEDS ORDERED: LORazepam 2 MG/ML VIAL IM PRN (09:05)
[2020-08-31] MEDS: haloperidoL 5 MG TAB PO SCH ×3 (09:16→20:18)
[2020-09-01] MEDS: haloperidoL 5 MG TAB PO SCH ×3 (08:56→20:27)
[2020-09-01] MEDS: MULTIVITAMINS/MINERALS THERAP 1 TAB PO SCH (13:52)
[2020-09-02] MEDS: MULTIVITAMINS/MINERALS THERAP 1 TAB PO SCH (09:00)
[2020-09-02] MEDS: haloperidoL 5 MG TAB PO SCH ×3 (09:21→20:40)
[2020-09-03] MEDS: haloperidoL 5 MG TAB PO SCH ×3 (08:06→20:00)
[2020-09-03] MEDS: MULTIVITAMINS/MINERALS THERAP 1 TAB PO SCH ×2 (08:07→17:46)
--- NOTE | 2020-09-03 16:43 | MHIPN ---
[facility] PROGRESS NOTE DATE: 09/03/2020 CHIEF COMPLAINT: "I want to go home. I don't want to take any more medications." SUBJECTIVE: The patient was in a hurry to go. He did not answer a lot of my questions. He is a 30-year-old male, single, unemployed male, was brought by the police, was found walking in the middle of the road, exhibiting bizarre behavior and making bizarre statements. When he was brought to the hospital, he was tangential, hyperverbal. Recently, he is court ordered for retention and medication over objection. Currently on Haldol 5 mg three times a day. Patient continues to have manic symptoms like rapid speech, tangential and circumstantial, sometimes disorganized. He gets agitated when he is told he needs to be in the hospital for some more time. MENTAL STATUS EXAMINATION: Casually dressed, cooperative for a short period of time, then suddenly gets angry, leaves the office. He is suspicious. Speech is rapid. Volume is superfluous. Mood is elevated, manic. Thought process: Circumstantial, flight of ideas, derailment. Thought content: Grandiose, persecutory, bizarre, sabianism preoccupations. Denies any hallucinations. His attention is somewhat impaired. He is oriented to time, place and person. Memory is intact. Insight and judgment are poor. ASSESSMENT: 1. Schizoaffective disorder, bipolar type. 2. Alcohol use disorder. 3. Cannabis use disorder. PLAN: Continue current medication, Haldol 5 mg three times a day. Patient was offered Depakote. He refused to take it. ESTIMATED LENGTH OF STAY: 7-8 days. TIME SPENT: 25 minutes.
[2020-09-04] MEDS: MULTIVITAMINS/MINERALS THERAP 1 TAB PO SCH (09:00)
[2020-09-04] MEDS: haloperidoL 5 MG TAB PO SCH ×3 (09:03→21:06)
--- NOTE | 2020-09-04 13:27 | MHIPNPDOC ---
[facility] Progress Note Progress Note DATE OF SERVICE: 09/04/20 SUBJECTIVE: .pt is extremely paranoid, walked away when I entered his room. OBJECTIVE: The patient was in a hurry to go. He did not answer a lot of my questions. He is a 30-year-old male, single, unemployed male, was brought by the police, was found walking in the middle of the road, exhibiting bizarre behavior and making bizarre statements. When he was brought to the hospital, he was tangential, hyperverbal. Recently, he is court ordered for retention and medication over objection. Currently on Haldol 5 mg three times a day. Patient continues to have manic symptoms like rapid speech, tangential and circumstantial, sometimes disorganized. He gets agitated when he is told he needs to be in the hospital for some more time. Pt suspicious.and manic.Refused to take Depakote. MENTAL STATUS EXAMINATION: Casually dressed, cooperative for a short period of time, then suddenly gets angry, leaves the office. He is suspicious. Speech is rapid. Volume is superfluous. Mood is elevated, manic. Thought process: Circumstantial, flight of ideas, derailment. Thought content: Grandiose, persecutory, bizarre, sabianist preoccupations. Denies any hallucinations. His attention is somewhat impaired. He is oriented to time, place and person. Memory is intact. Insight and judgment are poor. ASSESSMENT: 1. Schizoaffective disorder, bipolar type. 2. Alcohol use disorder. 3. Cannabis use disorder. PLAN: Continue current medication, Haldol 5 mg three times a day. Patient was offered Depakote. He refused to take it. ESTIMATED LENGTH OF STAY: 7-8 days. TIME SPENT: 25 minutes. Current Medications Current Medications Medications (Trade) Dose Ordered Sig/Tong Route PRN Reason Start Time Stop Time Status Last Admin Dose Admin Al Hydrox/Mg Hydrox/Simethicone (Mylanta) 30 ml Q4HP PRN PO HEARTBURN/INDIGESTION 07/18/20 18:25 Benztropine Mesylate (Cogentin) 1 mg BID PRN PO EPS 07/19/20 15:30 Benztropine Mesylate (Cogentin) 1 mg Q6HP PRN IM EPS 08/31/20 09:05 Diphenhydramine HCl (Benadryl) 50 mg STAT STAT IM 08/26/20 15:15 08/26/20 15:17 DC 08/26/20 15:37 Haloperidol (Haldol) 5 mg DAILY STAT IM 08/31/20 09:03 08/31/20 09:07 DC Haloperidol (Haldol) 5 mg Q6HP PRN PO AGITATION 07/19/20 15:30 Haloperidol (Haldol) 5 mg TID PO 07/19/20 16:00 09/04/20 09:03 Haloperidol (Haldol) 10 mg STAT STAT IM 08/26/20 15:15 08/26/20 15:17 DC 08/26/20 15:37 Home Med (Med Rec Complete!) ASDIRECTED XX 07/17/20 21:05 07/17/20 21:08 DC Ibuprofen (Advil) 400 mg Q6HP PRN PO PAIN 07/18/20 18:25 Lorazepam (Ativan) 2 mg Q4HP PRN IM AGITATION 08/31/20 09:05 Lorazepam (Ativan) 2 mg STAT STAT IM 08/26/20 15:15 08/26/20 15:17 DC 08/26/20 15:36 Magnesium Hydroxide (Milk Of Magnesia) 30 ml DAILYPRN PRN PO CONSTIPATION 07/18/20 18:25 Miscellaneous (Unresolved Clarification Entry) SEE LABEL COMMENTS UNRESOLVED XX 08/18/20 00:01 08/17/20 19:39 DC Multivitamins (Theragram-M) 1 tab DAILY PO 09/01/20 09:00 09/03/20 17:46 Nicotine (Nicoderm Cq 21mg) 1 patch DAILY TD 07/19/20 09:00 08/17/20 18:56 DC Olanzapine (ZyPREXA ZYDIS) 5 mg BID PRN PO ANXIETY/AGITATION 07/18/20 18:25 07/19/20 15:32 DC Trazodone HCl (Desyrel) 50 mg QHSP PRN PO INSOMNIA 07/18/20 18:25 Allergies Coded Allergies: No Known Allergies (Unverified , 08/21/17) LAUREL BENZ MD Sep 04, 2020 13:27
[2020-09-05] MEDS: MULTIVITAMINS/MINERALS THERAP 1 TAB PO SCH (09:00)
[2020-09-05] MEDS: BENZTROPINE 0.5 MG TAB PO SCH ×2 (09:00→20:13)
[2020-09-05] MEDS ORDERED: HALOPERIDOL DECANOATE 100 MG/ML VIAL (J1631) IM SCH (09:00)
[2020-09-05] MEDS: haloperidoL 5 MG TAB PO SCH ×3 (11:53→20:13)
--- NOTE | 2020-09-05 12:14 | MHIPNPDOC ---
[facility] Progress Note Progress Note DATE OF SERVICE: 09/05/20 SUBJECTIVE: .pt is extremely paranoid, and angry refused to take Haldol dec injection. OBJECTIVE: The patient was in a hurry to go. He did not answer a lot of my questions. He is a 30-year-old male, single, unemployed male, was brought by the police, was found walking in the middle of the road, exhibiting bizarre behavior and making bizarre statements. When he was brought to the hospital, he was tangential, hyperverbal. Recently, he is court ordered for retention and medication over objection. Currently on Haldol 5 mg three times a day. Patient continues to have manic symptoms like rapid speech, tangential and circumstantial, sometimes disorganized. He gets agitated when he is told he needs to be in the hospital for some more time. Pt suspicious.and manic.Refused to take Depakote. and Haldol Dec injection. MENTAL STATUS EXAMINATION: Casually dressed, cooperative for a short period of time, then suddenly gets angry, leaves the office. He is suspicious. Speech is rapid. Volume is superfluous. Mood is elevated, manic. Thought process: Circumstantial, flight of ideas, derailment. Thought content: Grandiose, persecutory, bizarre, congregational preoccupations. Denies any hallucinations. His attention is somewhat impaired. He is oriented to time, place and person. Memory is intact. Insight and judgment are poor. ASSESSMENT: 1. Schizoaffective disorder, bipolar type. 2. Alcohol use disorder. 3. Cannabis use disorder. PLAN: Continue current medication, Haldol 5 mg three times a day. Patient was offered Haldol Dec inj and he refused. ESTIMATED LENGTH OF STAY: 7-8 days. TIME SPENT: 25 minutes. Vital Signs Vital Signs Date Time Temp Pulse Resp B/P (MAP) Pulse Ox O2 Delivery O2 Flow Rate FiO2 09/05/20 07:54 Room Air Current Medications Current Medications Medications (Trade) Dose Ordered Sig/Tong Route PRN Reason Start Time Stop Time Status Last Admin Dose Admin Al Hydrox/Mg Hydrox/Simethicone (Mylanta) 30 ml Q4HP PRN PO HEARTBURN/INDIGESTION 07/18/20 18:25 Benztropine Mesylate (Cogentin) 0.5 mg BID PO 09/05/20 09:00 Benztropine Mesylate (Cogentin) 1 mg BID PRN PO EPS 07/19/20 15:30 Benztropine Mesylate (Cogentin) 1 mg Q6HP PRN IM EPS 08/31/20 09:05 Diphenhydramine HCl (Benadryl) 50 mg STAT STAT IM 08/26/20 15:15 08/26/20 15:17 DC 08/26/20 15:37 Haloperidol (Haldol) 5 mg DAILY STAT IM 08/31/20 09:03 08/31/20 09:07 DC Haloperidol (Haldol) 5 mg Q6HP PRN PO AGITATION 07/19/20 15:30 Haloperidol (Haldol) 5 mg TID PO 07/19/20 16:00 09/05/20 11:53 Haloperidol (Haldol) 10 mg STAT STAT IM 08/26/20 15:15 08/26/20 15:17 DC 08/26/20 15:37 Haloperidol Decanoate (Haldol Decanoate) 100 mg Q28D IM 09/05/20 09:00 Home Med (Med Rec Complete!) ASDIRECTED XX 07/17/20 21:05 07/17/20 21:08 DC Ibuprofen (Advil) 400 mg Q6HP PRN PO PAIN 07/18/20 18:25 Lorazepam (Ativan) 2 mg Q4HP PRN IM AGITATION 08/31/20 09:05 Lorazepam (Ativan) 2 mg STAT STAT IM 08/26/20 15:15 08/26/20 15:17 DC 08/26/20 15:36 Magnesium Hydroxide (Milk Of Magnesia) 30 ml DAILYPRN PRN PO CONSTIPATION 07/18/20 18:25 Miscellaneous (Unresolved Clarification Entry) SEE LABEL COMMENTS UNRESOLVED XX 08/18/20 00:01 08/17/20 19:39 DC Multivitamins (Theragram-M) 1 tab DAILY PO 09/01/20 09:00 09/03/20 17:46 Nicotine (Nicoderm Cq 21mg) 1 patch DAILY TD 07/19/20 09:00 08/17/20 18:56 DC Olanzapine (ZyPREXA ZYDIS) 5 mg BID PRN PO ANXIETY/AGITATION 07/18/20 18:25 07/19/20 15:32 DC Trazodone HCl (Desyrel) 50 mg QHSP PRN PO INSOMNIA 07/18/20 18:25 Allergies Coded Allergies: No Known Allergies (Unverified , 08/21/17) LAUREL BENZ MD Sep 05, 2020 12:14
[2020-09-06] MEDS: MULTIVITAMINS/MINERALS THERAP 1 TAB PO SCH (09:00)
[2020-09-06] MEDS: BENZTROPINE 0.5 MG TAB PO SCH ×2 (09:00→21:10)
[2020-09-06] MEDS: haloperidoL 5 MG TAB PO SCH ×3 (10:09→21:10)
--- NOTE | 2020-09-06 12:28 | MHIPNPDOC ---
[facility] Progress Note Progress Note DATE OF SERVICE: 09/06/20 SUBJECTIVE: Pt refused recommended medications,speaks with pressured speech, wants to be discharged. OBJECTIVE: The patient was in a hurry to go. He did not answer a lot of my questions. He is a 30-year-old male, single, unemployed male, was brought by the police, was found walking in the middle of the road, exhibiting bizarre behavior and making bizarre statements. When he was brought to the hospital, he was tangential, hyperverbal. Recently, he is court ordered for retention and medication over objection. Currently on Haldol 5 mg three times a day. Patient continues to have manic symptoms like rapid speech, tangential and circumstantial, sometimes disorganized. He gets agitated when he is told he needs to be in the hospital for some more time. Pt suspicious.and manic.Refused to take Depakote. and Haldol Dec injection.PT does not want to take any medications , wants to wait for dr Kilgore MENTAL STATUS EXAMINATION: Casually dressed, cooperative for a short period of time, then suddenly gets angry, leaves the office. He is suspicious. Speech is rapid. Volume is superfluous. Mood is elevated, manic. Thought process: Circumstantial, flight of ideas, derailment. Thought content: Grandiose, persecutory, bizarre, pentecostal preoccupations. Denies any hallucinations. His attention is somewhat impaired. He is oriented to time, place and person. Memory is intact. Insight and judgment are poor. ASSESSMENT: 1. Schizoaffective disorder, bipolar type. 2. Alcohol use disorder. 3. Cannabis use disorder. PLAN: Continue current medication, Haldol 5 mg three times a day. Patient was offered Haldol Dec inj and he refused.Pt in denial of illness.Will contact the court regarding medication issue. ESTIMATED LENGTH OF STAY: 7-8 days. TIME SPENT: 25 minutes. Vital Signs Vital Signs Date Time Temp Pulse Resp B/P (MAP) Pulse Ox O2 Delivery O2 Flow Rate FiO2 09/05/20 07:54 Room Air Current Medications Current Medications Medications (Trade) Dose Ordered Sig/Tong Route PRN Reason Start Time Stop Time Status Last Admin Dose Admin Al Hydrox/Mg Hydrox/Simethicone (Mylanta) 30 ml Q4HP PRN PO HEARTBURN/INDIGESTION 07/18/20 18:25 Benztropine Mesylate (Cogentin) 0.5 mg BID PO 09/05/20 09:00 09/05/20 20:13 Benztropine Mesylate (Cogentin) 1 mg BID PRN PO EPS 07/19/20 15:30 Benztropine Mesylate (Cogentin) 1 mg Q6HP PRN IM EPS 08/31/20 09:05 Diphenhydramine HCl (Benadryl) 50 mg STAT STAT IM 08/26/20 15:15 08/26/20 15:17 DC 08/26/20 15:37 Haloperidol (Haldol) 5 mg DAILY STAT IM 08/31/20 09:03 08/31/20 09:07 DC Haloperidol (Haldol) 5 mg Q6HP PRN PO AGITATION 07/19/20 15:30 Haloperidol (Haldol) 5 mg TID PO 07/19/20 16:00 09/06/20 10:09 Haloperidol (Haldol) 10 mg STAT STAT IM 08/26/20 15:15 08/26/20 15:17 DC 08/26/20 15:37 Haloperidol Decanoate (Haldol Decanoate) 100 mg Q28D IM 09/05/20 09:00 Home Med (Med Rec Complete!) ASDIRECTED XX 07/17/20 21:05 07/17/20 21:08 DC Ibuprofen (Advil) 400 mg Q6HP PRN PO PAIN 07/18/20 18:25 Lorazepam (Ativan) 2 mg Q4HP PRN IM AGITATION 08/31/20 09:05 Lorazepam (Ativan) 2 mg STAT STAT IM 08/26/20 15:15 08/26/20 15:17 DC 08/26/20 15:36 Magnesium Hydroxide (Milk Of Magnesia) 30 ml DAILYPRN PRN PO CONSTIPATION 07/18/20 18:25 Miscellaneous (Unresolved Clarification Entry) SEE LABEL COMMENTS UNRESOLVED XX 08/18/20 00:01 08/17/20 19:39 DC Multivitamins (Theragram-M) 1 tab DAILY PO 09/01/20 09:00 09/03/20 17:46 Nicotine (Nicoderm Cq 21mg) 1 patch DAILY TD 07/19/20 09:00 08/17/20 18:56 DC Olanzapine (ZyPREXA ZYDIS) 5 mg BID PRN PO ANXIETY/AGITATION 07/18/20 18:25 07/19/20 15:32 DC Trazodone HCl (Desyrel) 50 mg QHSP PRN PO INSOMNIA 07/18/20 18:25 Allergies Coded Allergies: No Known Allergies (Unverified , 08/21/17) LAUREL BENZ MD Sep 06, 2020 12:28
[2020-09-06] MEDS ORDERED: HALOPERIDOL DECANOATE 100 MG/ML VIAL (J1631) IM ONE (13:30)
[2020-09-07] MEDS: BENZTROPINE 0.5 MG TAB PO SCH ×2 (10:08→21:29)
[2020-09-07] MEDS: MULTIVITAMINS/MINERALS THERAP 1 TAB PO SCH (10:08)
[2020-09-07] MEDS: haloperidoL 5 MG TAB PO SCH ×3 (10:08→21:29)
--- NOTE | 2020-09-07 13:29 | MHIPNPDOC ---
[facility] Progress Note Progress Note DATE OF SERVICE: 09/07/20 SUBJECTIVE: Patient accepted his medication yesterday, he is calmer and more cooperative, continues to have pressured speech. OBJECTIVE: The patient was in a hurry to go. He did not answer a lot of my questions. He is a 30-year-old male, single, unemployed male, was brought by the police, was found walking in the middle of the road, exhibiting bizarre behavior and making bizarre statements. When he was brought to the hospital, he was tangential, hyperverbal. Recently, he is court ordered for retention and medication over objection. Currently on Haldol 5 mg three times a day. Patient continues to have manic symptoms like rapid speech, tangential and circumstantial. Patient is calmer and accepted Haldol dec injection. Continues to be Hyperverbal. MENTAL STATUS EXAMINATION: Casually dressed, cooperative for a short period of time, then suddenly gets angry, leaves the office. He is suspicious. Speech is rapid. Volume is superfluous. Mood is elevated, manic. Thought process: Circumstantial, flight of ideas, derailment. Thought content: Grandiose, persecutory, bizarre, jewish preoccupations. Denies any hallucinations. His attention is somewhat impaired. He is oriented to time, place and person. Memory is intact. Insight and judgment are poor. ASSESSMENT: 1. Schizoaffective disorder, bipolar type. 2. Alcohol use disorder. 3. Cannabis use disorder. PLAN: Continue current medication, Haldol 5 mg three times a day. We got permission from the court for administering long-acting antipsychotics. And patient accepted it. Will observe him 2 to 3 days and if he is stable he could be discharged. ESTIMATED LENGTH OF STAY: 2-3days. TIME SPENT: 25 minutes. Vital Signs Vital Signs Date Time Temp Pulse Resp B/P (MAP) Pulse Ox O2 Delivery O2 Flow Rate FiO2 09/05/20 07:54 Room Air Current Medications Current Medications Medications (Trade) Dose Ordered Sig/Tong Route PRN Reason Start Time Stop Time Status Last Admin Dose Admin Al Hydrox/Mg Hydrox/Simethicone (Mylanta) 30 ml Q4HP PRN PO HEARTBURN/INDIGESTION 07/18/20 18:25 Benztropine Mesylate (Cogentin) 0.5 mg BID PO 09/05/20 09:00 09/07/20 10:08 Benztropine Mesylate (Cogentin) 1 mg BID PRN PO EPS 07/19/20 15:30 Benztropine Mesylate (Cogentin) 1 mg Q6HP PRN IM EPS 08/31/20 09:05 Diphenhydramine HCl (Benadryl) 50 mg STAT STAT IM 08/26/20 15:15 08/26/20 15:17 DC 08/26/20 15:37 Haloperidol (Haldol) 5 mg DAILY STAT IM 08/31/20 09:03 08/31/20 09:07 DC Haloperidol (Haldol) 5 mg Q6HP PRN PO AGITATION 07/19/20 15:30 Haloperidol (Haldol) 5 mg TID PO 07/19/20 16:00 09/07/20 10:08 Haloperidol (Haldol) 10 mg STAT STAT IM 08/26/20 15:15 08/26/20 15:17 DC 08/26/20 15:37 Haloperidol Decanoate (Haldol Decanoate) 100 mg Q28D IM 09/05/20 09:00 Home Med (Med Rec Complete!) ASDIRECTED XX 07/17/20 21:05 07/17/20 21:08 DC Ibuprofen (Advil) 400 mg Q6HP PRN PO PAIN 07/18/20 18:25 Lorazepam (Ativan) 2 mg Q4HP PRN IM AGITATION 08/31/20 09:05 09/07/20 09:04 DC Lorazepam (Ativan) 2 mg STAT STAT IM 08/26/20 15:15 08/26/20 15:17 DC 08/26/20 15:36 Magnesium Hydroxide (Milk Of Magnesia) 30 ml DAILYPRN PRN PO CONSTIPATION 07/18/20 18:25 Miscellaneous (Unresolved Clarification Entry) SEE LABEL COMMENTS UNRESOLVED XX 08/18/20 00:01 08/17/20 19:39 DC Multivitamins (Theragram-M) 1 tab DAILY PO 09/01/20 09:00 09/07/20 10:08 Nicotine (Nicoderm Cq 21mg) 1 patch DAILY TD 07/19/20 09:00 08/17/20 18:56 DC Olanzapine (ZyPREXA ZYDIS) 5 mg BID PRN PO ANXIETY/AGITATION 07/18/20 18:25 07/19/20 15:32 DC Trazodone HCl (Desyrel) 50 mg QHSP PRN PO INSOMNIA 07/18/20 18:25 Allergies Coded Allergies: No Known Allergies (Unverified , 08/21/17) LAUREL BENZ MD Sep 07, 2020 13:29
[2020-09-08] MEDS: MULTIVITAMINS/MINERALS THERAP 1 TAB PO SCH ×3 (08:31→15:32)
[2020-09-08] MEDS: BENZTROPINE 0.5 MG TAB PO SCH ×2 (08:32→20:52)
[2020-09-08] MEDS: haloperidoL 5 MG TAB PO SCH ×3 (08:32→20:52)
[2020-09-09] MEDS: haloperidoL 5 MG TAB PO SCH ×3 (08:32→21:18)
[2020-09-09] MEDS: MULTIVITAMINS/MINERALS THERAP 1 TAB PO SCH (08:32)
[2020-09-09] MEDS: BENZTROPINE 0.5 MG TAB PO SCH ×2 (08:32→21:18)
[2020-09-10] MEDS: MULTIVITAMINS/MINERALS THERAP 1 TAB PO SCH (09:00)
[2020-09-10] MEDS: haloperidoL 5 MG TAB PO SCH (11:36)
[2020-09-10] MEDS: BENZTROPINE 0.5 MG TAB PO SCH (11:37)
[2020-09-10] MEDS ORDERED: BENZ0.5T23 PO (13:52)
[2020-09-10] MEDS ORDERED: VITMTA PO (13:52)
[2020-09-10] MEDS ORDERED: HALO5TA PO (13:52)
[2020-09-10] MEDS ORDERED: HALO10AM IM (13:52)
--- NOTE | 2020-09-10 15:34 | MHPR ---
General Date: Aug 27, 2020 Time: 15:45 Post-Restraint Evaluation THIS IS A LATE ENTRY FOR POST RESTRAINT, PATIENT WAS SEEN ON July 28, 2020 by this provider and restraint initiation and debriefing occurred during daily interview THE OUTCOME OF THE RESTRAINT: Patient was given IM injections and slept through evening shift EFFECTIVENESS OF THE RESTRAINT: Mechanical and/or chemical: [Positive]. ANY EVIDENCE THAT THE PATIENT WAS AFFECTED EMOTIONALLY: Patient reported that he was becoming paranoid, aggressive, agitated and was not redirectable when asked to go to his room. ANY NEED FOR COUNSELING/ASSISTANCE: Patient was offered food, bathroom and oral medications prior to use of intramuscular medications, at this time patient denies any issues CHANGES IN TREATMENT PLAN: None RECOMMENDATIONS FOR FUTURE INCIDENTS: Patient will report any escalation in agitation and aggression and request PRN oral medications. ALEX AGUIRRE NP Sep 10, 2020 15:30
[2020-09-10] MEDS ORDERED: HALOPERIDOL 5MG/ML VIAL (J1630 PER 1) IM SCH (16:00)
--- NOTE | 2020-09-10 16:22 | MHDSPDOC ---
[facility] Discharge Summary Discharge Summary DATE OF ADMISSION: Jul 18, 2020 at 18:22 DATE OF DISCHARGE: September 10, 2020 at 1536 DISCHARGE DIAGNOSES: Schizoaffective, Bipolar Type Nicotine Use Disorder Alcohol Use Disorder Cannabis Use Disorder REASON FOR ADMISSION: Patient is a 30 -year-old Single, Unemployed , male, who was brought by by Police, as he was found walking in the middle of the road, making bizarre statements. On interview, patient is tangential and hyperverbal has a long story about his travels on foot and he postulates that a passerby felt that he was walking strangely on the road. Patient is quite manic in his speech with flights of ideas, loose associations and displaying poor insight and judgment. States that he is into natural substances and does not want medications. Patient has had one previous admission to this facility in August 2017 with a diagnosis of Schizoaffective, Bipolar. Patient is unkempt. wearing his hair very long, has fungal on his toenail, states that he was living with a friend for a few days but alludes to being homeless for a few months. PER ED REPORT: Pt was brought to the ED by police on a 9.41 after being found walking in the middle of the road. Pt was making bizarre statements as well. When asked why he was brought to the ED by police, pt stated "There were reports made by people driving by me because of the unorthodox way I was flowing while traveling by foot down the highway." Pt states that these people made false allegations against him, but he admits that he was walking down the middle [place] road [place] [address]. Pt states that the police "were corrupting the purity of my moment." He states that he is buddhist & "I cannot be corrupted by rules because I am clever, witty, & kind." Pt states that he has walked close to 100 miles over the past few days. Pt is disheveled, unkempt, & malodorous. He states that he has not showered in at least a week. Pt's speech is rambling, rapid, pressured, & mumbled. His TP is disorganized & his concentration is poor. He will often start to answer a question & will then stop & ask what the question was. Pt denies both SI & HI. He denies any hx of suicide attempts or self-harm. Pt denies both AH & VH. He appears internally preoccupied at times, looking at the wall & mumbling. Pt denies both depression & anxiety. He reports "excellent" energy levels. He states that his sleep & appetite are good. When asked if he has a mental health dx he states "there was a false judgment against me a few years ago & they said I was bipolar." Pt has a hx of schizoaffective d/o with [facility]. He does not currently have OP tx. Pt reports occasional MJ use. He states that he uses alcohol occasionally & then states "less than five times per month." Pt's tox screen was negative. Pt states he has been homeless for four or five months. He states that over the course of that time he has stayed at hotels, the [employer], & with friends. Pt states that sometimes he does not have a place to stay so he just walks. VITAL SIGNS: See below. CONSULTANTS INVOLVED: See Medical H + P by Hospitalist TREATMENT AND PROGRESS ON THE UNIT: Patient [facility] on a 9.39 legal status he was afforded the following treatment modalities: 1) Individual Therapy 2) Group Therapy 3) Medication Management 4) Milieu Therapy 5) Safe Environment HOSPITAL COURSE: Patient was psychotic initially and remained grandiose with buddhist preoccupations throughout his hospitalization until the very end of his admission when he was ordered to take medications and improved in his mentation. He presented with manic and delusional behaviors (religiously preoccupied and paranoid of electrical appliances) and had refused to take any medications while hospitalized, which would most likely help stabilize his manic and delusional thoughts. It was clear early in the admission that patient treatment was going to exceed the 15 days of a 9.39, 2 PC and transfer to [facility] was initiated. Patient historically is non-compliant with medication regime in the community and outpatient Mental Health Services several years ago. He is banned from many places such schools, DSS and other public places due to his poor compliance, violations of rules and history of breaking and entering into homes, schools and businesses. The patient's presentation did not change dramatically. He continued to be paranoid, delusional and has over-productive of his speech. Patient's hair was quite matted and he continued to be very religiously preoccupied. States that he will not use any products for his hair that is unhealthy and inorganic. And he refused to brush his teeth, reporting that he could not use toothbrush unless it had natural colors. States, " It is beyond me how this hospital can keep me here for this extended length for the time in that I have honor, shawn and marvin and integrity and no reason for you to undermine me and you all need to be uniform in accordance with the rules, process and be in accordance with the policies." He remained sophomanic in his speech, tangential and circumstantial. He avoided any eye contact, observed to be suspicious and easily agitated when I reinforce that I do not feel he is stable and cannot navigate on his own (no finances, no penitentiary, no supports), he does not present the treatment team with any safe discharge plans that would be appropriate. Patient exhibits manic like behaviors, including rapid, pressured speech, delusional thought content, extremely poor insight and judgment. Patient refused medications for approximately 45 days of his hospitalization. Many times Patient refused to speak with provider, states "I am not sure what we need to speak about, I want to be discharged." He stated that he can stay at a friend's house, but again does not know the address or phone in order for staff to verify this. He refuses provider and media planner / buyer to speak to family to establish verification of safe discharge. Patient has a history homelessness, unemployment due to his mental illness and history of poor compliance. Discharging without a safe plan would most likely result in a readmission. His symptoms that delayed his discharge: Severe impairment in insight/judgment. Patient is unable to make safe decisions related to daily living Medication interventions offered and patient continues to refuse Symptom control so tenuous that immediate rehospitalization highly likely if patient discharged Barriers that delayed his discharge -Patient was not sufficiently stable for discharge -Patient unable to care for self as he lacks insight and judgment -Awaiting court proceedings/rulings pursing Treatment over Objection -Transferring to [facility] ON 08/30/20 - Treatment Over Objection Hearing and the county court judge presiding ruled in favor of the Hospital. Of note, the county court judge stated that he did not believe that the patient posed a danger to himself and others. [facility] [employer] reported that Hospital did not show evidence that patient needed continued hospitalization, although the hearing was not for retention but for treatment over medications. Patient was however very tangential and circumstantial in the court proceedings but he was not delusional or paranoid. Today his thought process was linear and organized, he was not paranoid or delusional. I have reinforced with the patient that he needs to comply with the verdict and take medications and he will subsequently be discharged. Patient agreed to take the oral medications that were requesting on Treatment over Objection and he subsequently allowed Haldol Decanoate to be administered on September 06. He does have fixed delusions but these are not dangerous. He remained in control for most of his hospitalization with the exception of one day when he needed intramuscular medications for agitation, aggression and not following directions. Patient ate his meals, he took care of his ADLs and although he was not appropriate for group therapy, he was compliant and visible on the unit, walking and exercising in the hallways . Since then, patient has become less manic, less paranoid and is not delusional or tangential/circumstantial. I believe that the patient is safe to be discharged to a homeless penitentiary. He does not meet requirement for further hospitalization as he does not pose a danger to himself or others. I feel strongly that patient does not need a transfer to [facility] at this t [place]. DISCHARGE ASSESSMENT: In today's interview, patient is alert and oriented, pts dress is appropriate. Hygiene and grooming is well-kempt. Smiles on approach and is pleasant and engaged in the interview. Denies depression and anxiety. Denies suicidal and homicidal ideation, planning or intent. Denies and is not observed with maritza, psychotic symptoms of delusions, bizarre thinking, obsessions, paranoia, ruminations illogical thoughts, flight of ideas or having poor insight and judgement at time of discharge. Patient has improved mentation, declines further hospitalization on a voluntary status and meets criteria for discharge today. MENTAL STATUS EXAMINATION ON DISCHARGE: Patient is a 30 -year-old Single, Unemployed , male, who was brought by by Police, as he was found walking in the middle of the road, making bizarre statements. In today's interview, he is less not paranoid or manic, he denies depression and anxiety. Patient had shaved his mills and matted hair over the weekend. His hygiene and grooming is well kempt. He interrupted other patient's interviews throughout the day hoping to hasten the discharge. He reports that he is going to a penitentiary, when asked about services/food/penitentiary. He states, "I will take care of myself, I will be ok. I can go to [facility] and I will stay at the homeless penitentiary." Speech: Is fluid, conversant, normal rate, tone and volume Language skills are intact Thought processes including: linear and goal oriented Thought content: denies depression and anxiety. Denies suicidal/homicidal ideation, planning or intent. Abstract reasoning, and computation: fair Description of associations: denies, none observed Description of abnormal or psychotic thoughts: denies, none observed. Judgment: fair Insight: fair Orientation: alert and oriented to person, place, time and situation Recent and remote memory: intact Attention span and concentration: good Language: expansive Fund of knowledge: average Mood: Euthymic Mood Affect: reactive MEDICATIONS ON DISCHARGE: See Medication List PLAN/FOLLOWUP ARRANGEMENTS: [facility] The amount of time spent in the coordination of care for this patient was approximately 45 minutes. ETOH/Disorder Med Rx ETOH/DRUG DISORDER RX: Offrd @ d/c & pt refused Vital Signs/I&Os Vital Signs Date Time Temp Pulse Resp B/P (MAP) Pulse Ox O2 Delivery O2 Flow Rate FiO2 09/05/20 07:54 Room Air Medications Scheduled Haloperidol (Haloperidol) 5 Mg Tablet, 5 MG PO TID for Antipsychotic, #21 Haloperidol Decanoate (Haloperidol Decanoate) 100 Mg/1 Ml Vial, 100 MG IM Q28D for Antipsychotic, #1 Next dose 10/04/20 Multivitamins (Thera M Plus Tablet) 1 Each Tablet, 1 TAB PO DAILY for Vitamin Replacement, #7 Scheduled PRN Benztropine Mesylate (Benztropine Mesylate) 0.5 Mg Tablet, 0.5 MG PO BIDP PRN for EPS, #14 Allergies Coded Allergies: No Known Allergies (Unverified , 08/21/17) ALEX AGUIRRE NP Sep 10, 2020 15:37
== END 2020-09-10 15:52 | disposition home or self-care (01) | DRG 750 ==
LOC: M ED 16:50 → M ED INP 07-18 18:22 → M PSY 07-18 21:55
PROVIDERS: ADMIT Psychiatry & Neurology Psychiatry; ATTEND Psychiatry & Neurology Psychiatry
DX: F25.0 Schizoaffective disorder, bipolar type (principal); Z59.0 Homelessness; F17.200 Nicotine dependence, unspecified, uncomplicated; F10.10 Alcohol abuse, uncomplicated; F12.10 Cannabis abuse, uncomplicated; Z20.822 Contact with and (suspected) exposure to COVID-19; Z78.1 Physical restraint status; Z91.14 Patient's other noncompliance with medication regimen; Z91.19 Patient's noncompliance with other medical treatment and regimen

== ENCOUNTER → 2023-09-01 | Outpatient (CLI) | payer MEDICAID ==
[~2023-09-01] MED LIST changes: +BENZ0.5T2 PO; +BENZ1TAB5 PO; +DEPA250T2 PO; +DEPA500T2 PO; +DIPH-435 PO; -DIPH25CA32 PO; +HALO10AM IM; +HALO5TAB33 PO; +INVE234I IM; +NICO21PAT TD; +TRAZ-252 PO; +VITMTA PO
== END ==
LOC: M OUTALCOH 08:20
PROVIDERS: ATTEND Psychiatry & Neurology Psychiatry
DX: F10.20 Alcohol dependence, uncomplicated (principal); F12.10 Cannabis abuse, uncomplicated; Z72.0 Tobacco use

== ENCOUNTER 2023-10-02 09:52 | Outpatient (RCR) | payer MEDICAID | END 2023-10-17 | LOC: M OUTALCOH 09:52 | PROVIDERS: ATTEND Psychiatry & Neurology Psychiatry | DX: F12.10 Cannabis abuse, uncomplicated (principal); F10.20 Alcohol dependence, uncomplicated; Z72.0 Tobacco use ==

== ENCOUNTER 2023-10-30 10:00 | Outpatient (RCR) | payer MEDICAID | END 2023-11-16 | LOC: M OUTALCOH 10:00 | PROVIDERS: ATTEND Psychiatry & Neurology Psychiatry | DX: F10.10 Alcohol abuse, uncomplicated (principal); F12.10 Cannabis abuse, uncomplicated; Z72.0 Tobacco use ==

== ENCOUNTER 2023-12-04 09:00 | Outpatient (RCR) | payer MEDICAID | END 2023-12-17 | LOC: M OUTALCOH 09:00 | PROVIDERS: ATTEND Psychiatry & Neurology Psychiatry | DX: F10.20 Alcohol dependence, uncomplicated (principal); F12.10 Cannabis abuse, uncomplicated; Z72.0 Tobacco use ==

== ENCOUNTER → 2023-12-24 | Outpatient (CLI) | payer MEDICAID, OTHER ==
[2023-12-24 14:48] LABS: BASO # 0.1 10^3/uL (0.0-0.2); BASO % 0.6 % (0.0-1.0); EOS # 0.2 10^3/uL (0.0-0.5); EOS % 2.8 % (0.0-3.0); HEMATOCRIT 43.4 % (42.0-52.0); LYMPH % 24.4 % (24.0-44.0); MEAN CORPUSCULAR HEMOGLOBIN 29.9 pg (27.0-33.0); MEAN CORPUSCULAR HGB CONC 34.6 g/dl (32.0-36.5); MEAN CORPUSCULAR VOLUME 86.5 fl (80.0-96.0); MONO # 0.7 10^3/uL (0.0-0.8); MONO % 8.4 % (2.0-8.0); NEUTROPHILS # 5.1 10^3/uL (1.5-8.5); NEUTROPHILS % 63.4 % (36.0-66.0); PLATELET COUNT, AUTOMATED 240 10^3/uL (150-450); RED BLOOD COUNT 5.02 10^6/uL (4.30-6.10)
[2023-12-24 15:08] LABS: ALBUMIN 3.7 G/DL (3.2-5.2); ALKALINE PHOSPHATASE 133 U/L (40-129); ALT/SGPT 44 U/L (7.0-40); AST/SGOT 26 U/L (<34); BILIRUBIN,TOTAL 0.3 MG/DL (0.3-1.2); BLOOD UREA NITROGEN 11 MG/DL (9-23); CALCIUM LEVEL 9.7 MG/DL (8.5-10.1); CARBON DIOXIDE LEVEL 28 MMOL/L (20-31); CHLORIDE LEVEL 105 MMOL/L (98-107); CHOLESTEROL LEVEL 229 MG/DL (<200); CHOLESTEROL RISK RATIO 4.32 (<5); CREATININE FOR GFR 0.74 MG/DL (0.70-1.30); GLOMERULAR FILTRATION RATE > 60.0 (>60); GLUCOSE, FASTING 142 MG/DL (60-100); HDL CHOLESTEROL 52.9 MG/DL (>40); LDL CHOLESTEROL 122.9 MG/DL (<100); NON-HDL-C 176.1 MG/DL; POTASSIUM SERUM 3.8 MMOL/L (3.5-5.1); SODIUM LEVEL 137 MMOL/L (136-145); TOTAL PROTEIN 7.2 G/DL (5.7-8.2); TRIGLYCERIDES LEVEL 266 MG/DL (<150)
[2023-12-24 15:11] LABS: THYROID STIMULATING HORMONE 0.673 uIU/ML (0.55-4.78)
[2023-12-24 15:19] LABS: HEMOGLOBIN A1c 4.8 % (4.0-6.0)
== END ==
LOC: M LAB 13:15
PROVIDERS: ATTEND Student in an Organized Health Care Education/Training Program
DX: F20.9 Schizophrenia, unspecified (principal)

== ENCOUNTER 2024-01-01 08:51 | Outpatient (RCR) | payer MEDICAID | END 2024-01-16 | LOC: M OUTALCOH 08:51 | PROVIDERS: ATTEND Psychiatry & Neurology Psychiatry | DX: F10.20 Alcohol dependence, uncomplicated (principal); F12.10 Cannabis abuse, uncomplicated; Z72.0 Tobacco use ==

== ENCOUNTER 2024-02-04 08:52 | Outpatient (RCR) | payer OTHER | END 2024-02-16 | LOC: M OUTALCOH 08:52 | PROVIDERS: ATTEND Psychiatry & Neurology Psychiatry | DX: F12.10 Cannabis abuse, uncomplicated (principal); F10.20 Alcohol dependence, uncomplicated; Z72.0 Tobacco use ==

== ENCOUNTER 2024-03-16 09:32 | Outpatient (RCR) | payer OTHER | END 2024-03-18 | LOC: M OUTALCOH 09:32 | PROVIDERS: ATTEND Psychiatry & Neurology Psychiatry | DX: F12.10 Cannabis abuse, uncomplicated (principal); F10.20 Alcohol dependence, uncomplicated; Z72.0 Tobacco use ==

== ENCOUNTER 2024-04-22 08:52 | Outpatient (RCR) | payer OTHER | END 2024-05-16 | LOC: M OUTALCOH 08:52 | PROVIDERS: ATTEND Psychiatry & Neurology Psychiatry | DX: F10.10 Alcohol abuse, uncomplicated (principal); F12.10 Cannabis abuse, uncomplicated; Z72.0 Tobacco use ==

== ENCOUNTER 2024-06-03 08:56 | Outpatient (RCR) | payer OTHER | END 2024-06-15 | LOC: M OUTALCOH 08:56 | PROVIDERS: ATTEND Psychiatry & Neurology Psychiatry | DX: F10.20 Alcohol dependence, uncomplicated (principal); F12.10 Cannabis abuse, uncomplicated; Z72.0 Tobacco use ==

== ENCOUNTER 2024-09-23 08:55 | Outpatient (RCR) | payer MEDICAID ==
[~2024-09-23 08:55] MED LIST changes: +DEPA250T PO; -DEPA250T2 PO
== END 2024-10-16 ==
LOC: M OUTALCOH 08:55
PROVIDERS: ATTEND Psychiatry & Neurology Psychiatry
DX: F12.10 Cannabis abuse, uncomplicated (principal)

== ENCOUNTER 2024-11-04 09:01 | Outpatient (RCR) | payer MEDICAID | END 2024-11-15 | LOC: M OUTALCOH 09:01 | PROVIDERS: ATTEND Psychiatry & Neurology Psychiatry | DX: F10.20 Alcohol dependence, uncomplicated (principal); F12.10 Cannabis abuse, uncomplicated; Z72.0 Tobacco use ==

== ENCOUNTER → 2024-12-16 | Outpatient (RCR) | payer MEDICAID | LOC: M OUTALCOH 09:02 | PROVIDERS: ATTEND Psychiatry & Neurology Psychiatry | DX: F12.10 Cannabis abuse, uncomplicated (principal); F10.20 Alcohol dependence, uncomplicated; Z72.0 Tobacco use ==

== ENCOUNTER 2025-02-03 08:52 | Outpatient (RCR) | payer MEDICAID | END 2025-02-15 | LOC: M OUTALCOH 08:52 | PROVIDERS: ATTEND Psychiatry & Neurology Psychiatry | DX: F12.10 Cannabis abuse, uncomplicated (principal) ==